=== PATIENT | male | born 1955 | race Two or more races ===

== ENCOUNTER 2025-03-16 00:37 | Inpatient (IN) | payer OTHER, MEDICARE, SELFPAY ==
[2025-03-16] VITALS (31 sets, daily range): BP systolic 138–220; BP diastolic 79–133; PULSE 64–103; RESP 12–97; TEMP 36.2–37; O2SAT 95–100; BMI 24.3
--- NOTE | 2025-03-16 00:45 | PD.EDSOB ---
ED SOB =RME/HPI General Chief Complaint: Shortness of Breath/Dyspnea Stated Complaint: SOB Time Seen by Provider: 03/16/25 00:52 Arrival date/time: 03/16/25 00:37 RME / HPI RME / HPI Narrative: This section includes all my notes and documentations, including HPI, PE, and ED course. Kwaku Swartz MD HPI: 69yo male with ESRD on HD (M/W/F), HTN presents to the ED for a chief complaint of worsening shortness of breath and orthopnea. Patient states he missed his dialysis session yesterday and has since developed shortness of breath that worsens when he lies down. Patient denies any chest pain, nausea, vomiting, dizziness or any other associated symptoms. No other complaints reported. ROS: All negative except as documented in HPI. Physical Exam: General: Alert and oriented. Moderate respiratory distress noted. Hypoxia noted. High BP noted. Eyes: Conjunctivae and lids clear. ENT: No nasal congestion. Neck: Supple. Heart: RRR. Lungs: Moderate respiratory distress. Moderately decreased air movement with bilateral rales. Abdomen: Soft and nontender. Normal bowel sounds. No distension. No rebound or guarding. Back: No CVA tenderness. Skin: Warm and dry. Neuro: Alert and oriented X 3. I reviewed all diagnostic test results. My interpretation of the EKG is sinus rhythm with no acute ST-T wave changes. My interpretation of the chest x-ray is increased vascular congestion. My review of the CT head report is no acute findings. My review of the CT abdomen pelvis report is: 1. Cirrhosis. 2. Small ascites. 3. Sigmoid colon findings are compatible with diverticulitis versus sigmoiditis, underlying neoplasm cannot be excluded. 4. Left renal lesions, suspicious for renal cell carcinomas. My review of the CT angio chest report is: 1. No CT evidence of pulmonary thromboembolism. 2. Dilated left atrium. 3. Bilateral lower lobes consolidations, suspicious for pneumonia. 4. Bilateral pleural effusions. Blood tests show WBC 14.9, Sodium 132, Creatinine 83.7, BUN 52, eGFR 6, Troponin 0.228, BNP > 3280. Bedside COVID and Influenza swabs are negative. At this point, diagnoses include acute respiratory failure with hypoxia, acute CHF, pneumonia, hypertensive urgency. Treatment here included Lasix, topical NTG, morphine, metoprolol, clonidine, Zithromax, and Rocephin. Some improvement noted. I discussed the case with our technical producer. About the presentation and exam and diagnostics and treatments here. And need of further care in the hospital. Recommended admission to hospitalist service for emergent dialysis. I discussed the case with our hospitalist. About the presentation and exam and diagnostics and treatments here. And need of further care in the hospital. Will accept the patient. Kwaku Swartz MD Related Data Home Medications ?Medication ?Instructions ?Recorded ?Confirmed calcitriol 0.25 mcg capsule 0.25 mcg PO TID 06/03/23 12/04/23 ergocalciferol (vitamin D2) 1,250 50,000 unit PO DAILY 06/03/23 12/04/23 mcg (50,000 unit) capsule hydralazine 50 mg tablet 50 mg PO TID 06/03/23 12/04/23 sodium bicarbonate 650 mg tablet 650 mg PO BID 06/03/23 12/04/23 clonidine HCl 0.1 mg tablet 0.1 mg PO BID 06/05/23 12/04/23 valsartan 80 mg tablet 80 mg PO QDAY 10/09/23 12/04/23 Allergies Allergy/AdvReac Type Severity Reaction Status Date / Time No Known Allergies Allergy Verified 03/16/25 00:52 Review of Systems Review of Systems Systems Reviewed: All systems reviewed, normal except as documented Past Medical History Past Medical History NEUROLOGIC: Negative Neurological Disorders, Cerebrovascular Accident, Transient Ischemic Attacks (TIA), Dementia, Alzheimer's Disease, Parkinson's Disease, Brain Tumor, Meningitis, Seizures, Epilepsy, Multiple Sclerosis, Cerebral Palsy, Amyotrophic Lateral Sclerosis (ALS/Kaye Gehrig's), Guillain-Trent Syndrome, Spina Bifida, Paralysis, Peripheral Neuropathy, Joyce's Palsy, Subdural Hematoma, Migraine, Head Trauma, Spinal Cord Injury or Traumatic Brain Injury CARDIAC: Positive Cardiac Disorders and Hypertension; Negative Myocardial Infarction, Cardiac Arrhythmia, Atrial Fibrillation, Angina, Heart Murmur, Coronary Artery Disease, Atherosclerotic Heart Disease, Peripheral Vascular Disease, Hypercholesterolemia, Aneurysm, Congestive Heart Failure, Congenital Heart Disease, Valvular Heart Disease, Rheumatic Fever, Cardiomyopathy, Edema, Pericarditis, Cellulitis, Deep Vein Thrombosis, Hypotension or Varicose Veins RESPIRATORY: Negative Chronic Obstructive Pulmonary Disease (COPD), Asthma, Bronchitis, Emphysema, Pneumonia, Pulmonary Fibrosis, Cystic Fibrosis, Tuberculosis, Pulmonary Embolism, Pulmonary Edema or Sleep Apnea GASTROINTESTINAL: Negative Gastrointestinal Disorders, Hepatitis, Cirrhosis, Pancreatitis, Celiac Disease, Gall Bladder Disease, Gastrointestinal Bleed, Esophageal Varices, Alexis's Esophagus, Colitis, Ulcerative Colitis, Diverticulitis, Diverticulosis, Ulcer, Colorectal Cancer, Irritable Bowel, Crohn's Disease, Obstructive Bowel, Hiatal Hernia, Hemorrhoids, Gastroesophageal Reflux Disease or Obesity GENITOURINARY: Positive Genitourinary Disorders, Renal Disease and Dialysis (MWF); Negative Kidney Stones, Polycystic Kidney Disease, Neurogenic Bladder, Inguinal Hernia, Prostate Cancer or Benign Prostatic Hyperplasia REPRODUCTIVE: Negative Breast Cancer or Testicular Cancer MUSCULOSKELETAL: Negative Musculoskeletal Disorders, Muscular Dystrophy, Myasthenia Gravis, Marfan's Syndrome, Bone Cancer, Arthritis, Rheumatoid Arthritis, Osteoporosis, Degenerative Disk Disease, Gout, Scoliosis, Carpal Tunnel Syndrome, Fibromyalgia, Fractures, Degenerative Joint Disease, Osteomyelitis or Poliovirus ENT: Negative Cataracts, Glaucoma, Blind, Retinal Detachment, Macular Degeneration, Ear Infection, Deafness, Head Trauma or Eye Prosthesis ENDOCRINE: Negative Endocrine Disorders, Diabetes Mellitus Type 1, Diabetes Mellitus Type 2, Hypoglycemia, Vivek's Syndrome, Rains's Disease, Hyperthyroidism, Hypothyroidism, Parathyroid Disease, Pituitary Disease, Systemic Lupus Erythematosus, Syndrome of Inappropriate Antidiuretic Hormone (SIADH), Adrenal Disease or Graves' Disease HEMATOLOGIC: Negative Blood Disorders, Anemia, Leukemia or Sickle Cell Disease PSYCHO/SOCIAL: Negative Psychiatric Problems, Schizophrenia, Recreational Drug Use, Bipolar Disorder, Depression, Anxiety, Behavior Problems, Self-Mutilation, Attention Deficit Disorder, Attention Deficit Hyperactivity Disorder, Depression, Post Traumatic Stress Disorder or Eating Disorder OTHER HISTORY: Positive Hospitalization (cholecystectomy), Chicken Pox and Measles; Negative Autoimmune Disease, Down Syndrome, Autism, Developmental Delay, Shingles, Falls, Blood Transfusions, Blood Transfusion Reaction, Anesthesia Reactions, Organ Transplant, Chemotherapy, Radiation Therapy, Hyperbaric Therapy, MRSA, VRSA, Vancomycin-Resistant Enterococci, Human Immunodeficiency Virus (HIV), Mumps, Rubella (Algerian Measles), Pertussis, Clostridium Difficile, Cancer, Breast Cancer, Colorectal Cancer, Lung Cancer, Prostate Cancer or Testicular Cancer Family History FAMILY HISTORY: Negative Family Psychiatric Problems, Family Respiratory Disorders, Family Cardiac Disorders, Family Gastrointestinal Problems, Family Cancer, Family Surgery or Family Anesthesia Reaction Surgical History SURGICAL: Positive Abdominal Surgery; Negative Cardiac Surgery, Open Heart Surgery, Coronary Artery Bypass Graft, Valve Replacement, Vascular Surgery, Coronary Stent, Cardiac Catheterization, Pacemaker, Angiogram, Auto Implanted Cardiovert Defib, Carotid Endarterectomy, Endocrine Surgery, Thyroidectomy, Ear Surgery, Tympanostomy Tube, Eye Surgery, Nose Surgery, Oral Surgery, Tonsillectomy, Adenoidectomy, Cochlear Implant, Corneal Transplant, Throat Surgery, Tracheostomy, Gastric Bypass Surgery, Gastrostomy, Bowel Surgery, Nephrectomy, Transurethral Resection, Joint Replacement, Amputation, Open Reduction Internal Fixation, Arthroscopy, Neurologic Surgery, Brain Shunt, Vasectomy or Organ Transplant Social History SMOKING STATUS: Former smoker SUBSTANCE USE: does not use ED Exam Narrative Physical exam: As noted in HPI. Course Course Course Narrative: CXR is ordered for determining the etiology of shortness of breath. Quality Measures none Orders Category Date Time Status Bedside COVID-19 Antigen Test NOW Care 03/16/25 00:52 Active Bedside Influenza A&B Antigen Test NOW Care 03/16/25 00:52 Completed COVID-19 Screening Questionnaire NOW Care 03/16/25 05:[address] Screening NOW Care 03/16/25 02:33 Active Decision to Admit X1 Care 03/16/25 05:28 Completed EKG (ED ONLY) *Do not use* NOW Care 03/16/25 00:53 Completed Saline [Insert IV] NOW Care 03/16/25 00:52 Active Consult to Nephrology Stat Cons 03/16/25 05:[address] abdomen pelvis w con Stat Exams 03/16/25 02:[address] angio chest Stat Exams 03/16/25 02:[address] head/brain wo con Stat Exams 03/16/25 02:32 Taken EKG (ED Only) Stat Exams 03/16/25 00:53 Draft XR chest 1V portable Stat Exams 03/16/25 00:53 Taken ABG [Arterial Blood Gas] Stat Lab 03/16/25 01:04 Completed BNP [B-Type Natriuretic Peptide] Stat Lab 03/16/25 01:00 Completed Bilirubin,Direct Stat Lab 03/16/25 01:00 Completed CBC Stat Lab 03/16/25 01:00 Completed CMP [Comprehensive Metabolic Panel] Stat Lab 03/16/25 01:00 Completed D-Dimer Stat Lab 03/16/25 01:00 Completed Magnesium Stat Lab 03/16/25 01:00 Completed Troponin I Stat Lab 03/16/25 01:00 Completed Troponin I Stat Lab 03/16/25 04:50 Completed UA, C/S IF [Urinalysis, C/S if Indicated] Stat Lab 03/16/25 03:47 Completed 1gm x 1 (ED) Med 03/16/25 05:52 Ordered cefTRIAXone/D5w 1gm IV premix [Rocephin/D5w 1gm IV premix] 50 ml IV X1 Azithromycin Inj [Zithromax Inj] 500 mg Med 03/16/25 05:52 Ordered Sodium Chloride 0.9% 250 ml [Ns] 250 ml IV X1 Furosemide Inj [Lasix Inj] Med 03/16/25 00:52 Discontinued 80 mg IVP X1 ONE Metoprolol Tartrate [Lopressor] Med 03/16/25 01:31 Discontinued 50 mg PO X1 ONE Morphine Inj Med 03/16/25 00:52 Discontinued 2 mg IVP X1 ONE Nitroglycerin Oint 2% [Nitro-paste Oint 2%] Med 03/16/25 00:52 Discontinued 2 inch TOP X1 ONE cloNIDine HCL [Catapres] Med 03/16/25 03:58 Discontinued 0.1 mg PO X1 ONE cloNIDine HCL [Catapres] Med 03/16/25 01:31 Discontinued 0.3 mg PO X1 ONE BiPAP / CPAP NOW RT 03/16/25 00:59 Active Vital Signs Vital signs: Vital Signs Respiratory Rate 20 03/16/25 01:00 Blood Pressure 220/133 H 03/16/25 01:00 Pulse Oximetry (%) 100 03/16/25 01:00 Oxygen Delivery Method BiPAP 03/16/25 01:00 Shortness of Breath / Dyspnea MDM Narrative MDM Narrative:: 69yo male with a history of renal disease on HD (M/W/F), HTN presents to the ED for a chief complaint of shortness of breath. Patient states he missed his dialysis session yesterday and has since developed shortness of breath that worsens when he lies down. Patient denies any chest pain, nausea, vomiting, dizziness or any other associated symptoms. No other complaints reported. Patient data External records reviewed:: [facility] previous records (Per chart review, patient was seen here on 05/03/23 for chronic kidney disease.) Clinical information provided by:: patient Social determinants that could affect healthcare access:: none Patient has the following chronic illnesses:: renal disease on HD, HTN How is presenting disease/condition affected by chronic disease/condition?: exacerbated by Evaluation data The following diagnostics were reviewed and interpreted by me:: lab results, radiology exam(s) and EKG tracing(s) (My interpretation of the EKG: NSR (92 bpm) with no ST-T changes. Kwaku Swartz MD) Lab and/or radiology exams considered but not ordered:: none Interpretation Summary: I reviewed all diagnostic test results. My interpretation of the EKG is sinus rhythm with no acute ST-T wave changes. My interpretation of the chest x-ray is increased vascular congestion. My review of the CT head report is no acute findings. My review of the CT abdomen pelvis report is: 1. Cirrhosis. 2. Small ascites. 3. Sigmoid colon findings are compatible with diverticulitis versus sigmoiditis, underlying neoplasm cannot be excluded. 4. Left renal lesions, suspicious for renal cell carcinomas. My review of the CT angio chest report is: 1. No CT evidence of pulmonary thromboembolism. 2. Dilated left atrium. 3. Bilateral lower lobes consolidations, suspicious for pneumonia. 4. Bilateral pleural effusions. Blood tests show WBC 14.9, Sodium 132, Creatinine 83.7, BUN 52, eGFR 6, Troponin 0.228, BNP > 3280. Bedside COVID and Influenza swabs are negative. Medications / Prescriptions Medications or Prescriptions considered but not ordered:: none Medication administrations:: Medication Administration History Discontinued Medications Clonidine (Clonidine Hcl 0.1 Mg Tablet) 0.3 mg PO X1 ONE Stop: 03/16/25 01:32 Last Admin: 03/16/25 03:59 Dose: Not Given Documented By: BD Non-Admin Reason: Change of Condition Clonidine (Clonidine Hcl 0.1 Mg Tablet) 0.1 mg PO X1 ONE Stop: 03/16/25 03:59 Last Admin: 03/16/25 04:43 Dose: 0.1 mg Documented By: BD Furosemide (Furosemide Inj 10 Mg/Ml 4ml Vial) 80 mg IVP X1 ONE Stop: 03/16/25 00:53 Last Admin: 03/16/25 01:35 Dose: 80 mg Documented By: BD Metoprolol Tartrate (Metoprolol Tartrate 25 Mg Tablet) 50 mg PO X1 ONE Stop: 03/16/25 01:32 Last Admin: 03/16/25 02:41 Dose: 50 mg Documented By: BD Morphine Sulfate (Morphine Sulf Inj 10 Mg/Ml Vial) 2 mg IVP X1 ONE Stop: 03/16/25 00:53 Last Admin: 03/16/25 01:34 Dose: 2 mg Documented By: BD Nitroglycerin (Nitroglycerin Oint 2% 1 Inch Packet) 2 inch TOP X1 ONE Stop: 03/16/25 00:53 Last Admin: 03/16/25 01:35 Dose: 2 inch Documented By: BD Treatment here included Lasix, topical NTG, morphine, metoprolol, clonidine, Zithromax, and Rocephin. Consultations Consultation(s) initiated? (list below): Yes Consultation #1 (Physician, Specialty, Details): I discussed the case with our technical producer, Dr. Narvaez. About the presentation and exam and diagnostics and treatments here. And need of further care in the hospital. Recommended admission to hospitalist service for emergent dialysis. Diagnosis Shortness of Breath Differential Diagnosis: acute exacerbation of chronic obstructive airways disease, congestive heart failure, community acquired pneumonia, asthma with exacerbation and pulmonary embolism Most likely diagnosis given after review of the tests above:: Acute respiratory failure, acute CHF needing urgent dialysis, hypertensive urgency, pneumonia. Admission Indicated Admission indicated?: indicated Explain why admission is indicated or not indicated:: Acute respiratory failure, acute CHF needing urgent dialysis, hypertensive urgency, pneumonia. Admission Request Was there a request for admission?: Yes Admission Attestation Admission request attestation: Discussed case with Hospitalist service regarding admission. Discussed patients ED course, exam findings, labs, and radiology results. The Hospitalist [agrees] to accept the patient for admission. Disposition Plan Disposition Plan: Admit Critical Care Time Critical Care Time Critical Care Time: Yes Total Critical Care Time (min.): 45 Attestation: Due to a high probability of clinically significant, life threatening deterioration, the patient required my highest level of preparedness to intervene emergently and I personally spent this critical care time directly and personally managing the patient. This critical care time included obtaining a history; examining the patient; ordering and review of studies; arranging urgent treatment with development of a management plan; evaluation of patient's response to treatment; frequent reassessment; and discussions with family and other providers. It was exclusive of separately billable procedures and treating other patients and teaching time. Kwaku Swartz MD Discharge Plan Plan Patient Disposition: Admit Acute Care w/in Hospital Prescriptions/Referrals Prescriptions/Med Rec: No Action hydralazine 50 mg Tablet 50 mg PO TID sodium bicarbonate 650 mg tablet 650 mg PO BID calcitriol 0.25 mcg capsule 0.25 mcg PO TID ergocalciferol (vitamin D2) 1,250 mcg (50,000 unit) capsule 50,000 unit PO DAILY clonidine HCl 0.1 mg Tablet 0.1 mg PO BID valsartan 80 mg Tablet 80 mg PO QDAY Referrals: Nelson Narvaez MD [Primary Care Provider] - In 1 week Problem List Clinical Impression: Acute respiratory failure with hypoxia, Acute CHF, Hypertensive urgency, Pneumonia Patient/Caregiver Discharge Instructions Print Language: Angolan Stand Alone Forms: [facility] Award Info., Patient Portal Info Letter
--- NOTE | 2025-03-16 00:53 | EKG_ITS ---
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
--- NOTE | 2025-03-16 00:53 | XR_ITS ---
Examination: AP chest single view TECHNIQUE: AP portable upright chest single view Date and time: March 16, 2025 0147 hours Comparison September 25, 2019 INDICATIONS: Shortness of breath today. FINDINGS: [id number] CHF Mild enlargement cardiac contour. Prominent vascular congestion. Perihilar and basilar edema. Mild osteopenia. IMPRESSION: [id number] CHF
[2025-03-16 01:10] LABS: Base Excess -6 (-3-3); HCO3 19 mEq/L (20-26); Inspired Oxygen, FIO2 21 %; O2 Saturation 96 % (91-98); PCO2 37 mmHg (32.0-48.0); PO2 83 mmHg (83-108); pH, Arterial 7.33 (7.35-7.45)
--- NOTE | 2025-03-16 01:10 | PC.NURSE ---
0100 PT presents via private vehicle from home with for c/osob x 2 days. missing dialysis today because of sickness PT GCS15, respiratory acute distress noted, blood drawn from IV placed by nurse PT placed on telemetry monitor, BP cuff and continuous pulse ox.RT called pt put on Bipap fitula on left upper arm limb alert bracelet placed. Pt alert at this time, pt in nad, resp are even and unlabored, skin warm and dry, pt moving all extremities. Bed side introduction and call light instructions given, verbal understanding returned. Call light placed within reach. Will continue to monitor.
[2025-03-16 01:12] LABS: Allen Test Performed/OK; Puncture Site Left Radial
[2025-03-16 01:17] LABS: Basophils # (Auto) 0.1 Thou/mm3 (0.0-0.2); Basophils % (Auto) 1 % (0-2.5); Eosinophils # (Auto) 0.5 Thou/mm3 (0.0-0.5); Eosinophils % (Auto) 3 % (0-10); Hematocrit 36.7 % (41.0-53.0); Hemoglobin 12.6 g/dL (13.5-16.0); Immature Granulocytes % (Auto) 0 % (0-0); Immature Granulocytes Auto 0.05 Thou/mm3 (0.00-0.00); Lymphocytes # (Auto) 4.7 Thou/mm3 (1.0-4.8); Lymphocytes % (Auto) 32 % (10-50); Mean Corpuscular HGB Conc 34.3 g/dl (31.0-37.0); Mean Corpuscular Hemoglobin 31.4 pg (25.0-35.0); Mean Corpuscular Volume 92 fL (80-100); Monocytes # (Auto) 0.8 Thou/mm3 (0.0-0.8); Monocytes % (Auto) 5 % (0-12); Neutrophils # (Auto) 8.8 Thou/mm3 (1.8-7.7); Neutrophils % (Auto) 59 % (37-80); Nucleated Red Blood Cell % 0 /100 WBC (0); Platelet Count 196 Thou/mm3 (140-440); RDW Standard Deviation 47.7 fL (35.1-43.9); Red Blood Count 4.01 Miln/mm3 (4.50-5.90); White Blood Count 14.9 Thou/mm3 (3.8-10.6)
[2025-03-16] MEDS: MORPHINE SULF INJ 10 MG/ML VIAL 2 MG IVP (01:34)
[2025-03-16] MEDS: NITROGLYCERIN OINT 2% 1 INCH PACKET 2 INCH TOP (01:35)
[2025-03-16] MEDS: FUROSEMIDE INJ 10 MG/ML 4ML VIAL 80 MG IVP (01:35)
[2025-03-16 01:59] LABS: Alanine Aminotransferase 64 U/L (10-49); Albumin, Serum 4.6 gm/dL (3.4-4.8); Albumin/Globulin Ratio 1.5 (1.2-2.2); Alkaline Phosphatase 178 U/L (46-116); Anion Gap 15 (7-16); Aspartate Amino Transferase 84 U/L (0-34); B-Type Natriuretic Peptide > 3280 pg/mL (0-100); BUN/Creatinine Ratio 6 Ratio (12-20); Bilirubin,Direct 0.2 mg/dL (0.0-0.3); Bilirubin,Total 0.6 mg/dL (0.3-1.2); Blood Urea Nitrogen 52 mg/dL (9-23); Calcium 9.4 mg/dL (8.3-10.6); Calcium (Corrected) 9.4 mg/dL (8.5-10.1); Carbon Dioxide 20.8 mMol/L (20.0-31.0); Chloride 96 mMol/L (98-107); Creatinine (Component) 8.7 mg/dL (0.6-1.3); Glucose 143 mg/dL (74-106); Magnesium 2.4 mg/dL (1.6-2.6); Osmolality,Calculated 280 (275-295); Potassium 3.8 mMol/L (3.4-5.1); Sodium 132 mMol/L (136-145); Total Protein 7.6 gm/dL (5.7-8.2); eGFR 6 See Note
[2025-03-16 02:04] LABS: Troponin I 0.228 ng/mL (0.0-0.045)
--- NOTE | 2025-03-16 02:32 | XR_ITS ---
Examination: CT brain head without contrast. 2-D sagittal coronal reconstructions Date and time of exam:March 16, 2025 0409 hours High blood pressure with headaches today CTDI: vol (mGy):52.7 DLP: (mGycm):1051 Technique: Multiple CT axial sections of the brain have been obtained, 5 mm slice thickness. Contrast has not been administered. 2-D sagittal, coronal reconstructions have been obtained Low dose protocols were performed. One or more of the following dose reduction techniques were used; automated exposure control, adjustment of the mA and/or KV according to patient size, use of iterative reconstruction technique. Findings: No significant ventricular enlargement. Intra-axial or extra-axial hemorrhage density is not seen. No mass effect or midline shift Basal cisterns are not remarkable. Fourth ventricle is midline. Cranial vault intact. Impression: Negative for acute hemorrhage, mass effect or midline shift
--- NOTE | 2025-03-16 02:33 | XR_ITS ---
Examination: CTA chest with intravenous contrast 2-D reconstructions 3-D reconstructions, vascular Date and time of exam: March 16, 2025 0413 hours INDICATIONS: Central chest pain shortness of breath today CTDI: vol (mGy) 9.29 DLP: (mGycm) 364 Technique: Multiple axial sections of the thorax have been obtained. 3 mm slice thickness, from below the hemidiaphragms to above the apices of the lungs. Mediastinal and lung density settings have been obtained. 2-D sagittal and coronal reconstructions. 3-D angiographic renderings, 3-D volume renderings, 3D post processing, vascular maximum intensity projections obtained. Contrast administered is 60 cc Isovue 370. Low dose protocols were performed. One or more of the following dose reduction techniques were used; automated exposure control, adjustment of the mA and/or KV according to patient size, use of iterative reconstruction technique. Findings: No thoracic aortic aneurysm dilatation or dissection No pulmonary artery filling defects Mild enlargement cardiac contour Mild vascular congestion Mild pneumonia both bases with mild right minimal left pleural fluid IMPRESSION: Negative for pulmonary artery emboli Mild vascular congestion Mild bibasilar pneumonia
--- NOTE | 2025-03-16 02:33 | XR_ITS ---
Examination: CT abdomen with intravenous contrast CT pelvis with intravenous contrast 2-D coronal reconstructions 2-D sagittal reconstructions Date and time of exam:March 16, 2025 0413 hours INDICATIONS: Onset abdominal pain. Today CTDI: vol (mGy) 8.36 DLP: (mGycm) 487 Technique: Multiple axial sections of the abdomen and pelvis have been obtained. 64 slice high-resolution scanner used. 3 mm axial sections have been obtained, post intravenous injection 60 cc Isovue 370 2-D sagittal, coronal reconstructions obtained. Low dose protocols were performed. One or more of the following dose reduction techniques were used; automated exposure control, adjustment of the mA and/or KV according to patient size, use of iterative reconstruction technique. Findings: Cirrhosis, liver nodular in contour with fatty infiltration Absent gallbladder Mild ascites No pancreatic or adrenal mass Atrophic kidneys 60 mm lower pole enhancing left renal mass Lateral left renal mass 12 mm with calcification Abdominal aortic calcification with no aneurysmal dilatation Normal appendix Colonic diverticulosis Mass like area in the sigmoid colon with inflammatory change Transverse posterior dimension 5.2 cm Moderate osteopenia IMPRESSION: Cirrhosis Mild ascites Recommend MRI abdomen pre and post contrast follow-up to assess left renal masses Masslike area in the sigmoid colon with inflammatory change, differential would include acute diverticulitis, underlying malignant neoplasm of the colon
[2025-03-16] MEDS: METOPROLOL TARTRATE 25 MG TABLET 50 MG PO (02:41)
--- NOTE | 2025-03-16 03:20 | PC.NURSE ---
DEBO FRANCIS CALLED PT CREAT 8.7 ADVISED THAT HE WILL NEED DIALYSIS PER DR. ALVARENGA HE WILL GET EMERGENT DIALYSIS
[2025-03-16 03:23] LABS: D-Dimer 668 ng/mL (<600)
--- NOTE | 2025-03-16 03:43 | PC.NURSE ---
CALLED [facility]SE [facility]P TO BRING CLONIDINE FOR PT NON IN PIXIS
[2025-03-16 03:54] LABS: Collection Type, Urine Clean Catch; Squamous Epithelial Cell,Urine 0 /hpf (0-5)
--- NOTE | 2025-03-16 03:59 | PC.NURSE ---
NOTIFIED DR. ALVARENGA B/P 156/99 HR 77 WILL CLONIDINE FROM 0.3MG TO 0.1 MG
[2025-03-16 04:03] LABS: Bilirubin,Urine Negative (Negative); Blood,Urine Trace (Negative); Clarity,Urine Clear (Clear/Hazy); Color,Urine Colorless (Lt Yel-Yel); Culture Indicated,Urine Not Indicated; Glucose, Urine 2+ (Negative); Ketones,Urine Negative (Negative); Leukocyte Esterase,Urine Negative (Negative); Nitrite,Urine Negative (Negative); Protein,Urine 1+ (Neg - Trace); RBC,Urine < 1 /hpf (0-3); Urobilinogen,Urine Negative mg/dL (0.0-1.0); WBC,Urine 3 /hpf (0-5)
--- NOTE | 2025-03-16 04:30 | PC.NURSE ---
PT IN CT
[2025-03-16] MEDS: cloNIDine HCL 0.1 MG TABLET PO (04:43)
[2025-03-16 05:14] LABS: Troponin I 0.227 ng/mL (0.0-0.045)
--- NOTE | 2025-03-16 05:23 | PRELIM_ITS ---
CT scan of the head without intravenous contrast (axial sections with sagittal and coronal reformats). March 16, 2025 at 0409 hours Clinical history: Headache and high blood pressure. Comparison: None available at the time of this report. Findings: There is no evidence of intracranial hemorrhage, mass effect or midline shift. There are periventricular white matter hypodensities, compatible with chronic small vessel ischemia. There is severe volume loss. The calvarium is unremarkable. The mastoid air cells and the visualized paranasal sinuses are clear. Impression: No evidence of intracranial hemorrhage, mass effect or midline shift. Periventricular chronic small vessel ischemia and volume loss. Aspect score 10. Report Electronically Signed By: Dontrell Mendoza 03/16/2025 5:23:32 AM [EST]
--- NOTE | 2025-03-16 05:37 | PRELIM_ITS ---
CT angiogram of the chest with intravenous contrast (axial sections with sagittal and coronal reformats): March 16, 2025 at 0413 hours Clinical History: Shortness of breath. Technique:Helical axial sections with sagittal and coronal reformats of the chest were obtained with intravenous contrast. Iterative reconstruction technique was employed to reduce patient radiation exposure. 3D/MIP reconstructed images were also provided. Comparison: None. Findings: There is no filling defect within the pulmonary artery divisions to suggest pulmonary thromboembolism. The mediastinum demonstrates no evidence of mass or lymphadenopathy. The thoracic aorta is unremarkable. There is no pericardial effusion. There is no pneumothorax. There are small bilateral pleural effusions. There are bilateral lower lobes consolidations. The osseous structures are unremarkable. Please, see separate report for description of the abdominal findings. Dilated left atrium. Impression: 1. No CT evidence of pulmonary thromboembolism. 2. Dilated left atrium. 3. Bilateral lower lobes consolidations, suspicious for pneumonia. 4. Bilateral pleural effusions. Report Electronically Signed By: Dontrell Mendoza 03/16/2025 5:36:49 AM [EST]
--- NOTE | 2025-03-16 05:46 | PRELIM_ITS ---
CT scan of the abdomen and pelvis with intravenous contrast (axial sections with sagittal and coronal reformats): March 16, 2025 at 0413 hours Clinical History: Abdomen pain. Comparison: None available at the time of this report. Findings: Please, see separate report for description of the chest findings. The pancreas, spleen and adrenals are unremarkable. There is status postcholecystectomy. There is no biliary duct dilation. Left renal lesion is seen measuring 2.3 cm. Second left renal lesion is seen measures 2.5 cm. Irregular liver margins are seen. There is trace of ascites. No evidence of bowel obstruction. The appendix is within normal limits. There is no mesenteric or retroperitoneal adenopathy. The urinary bladder is unremarkable. There is no free air. There are degenerative changes of the imaged portions of the spine. There is no acute fractures. There is focal thickening of the sigmoid colon associated with mild peripheral fat stranding. There is diverticulosis of the colon. There is no collections, no perforation. Impression: 1. Cirrhosis. 2. Small ascites. 3. Sigmoid colon findings are compatible with diverticulitis versus sigmoiditis, underlying neoplasm cannot be excluded. 4. Left renal lesions, suspicious for renal cell carcinomas. Report Electronically Signed By: Dontrell Mendoza 03/16/2025 5:46:05 AM [EST]
--- NOTE | 2025-03-16 06:12 | PC.NURSE ---
PER DR. ANTONIETA DAMON TO ORDER ORDER BLOOD CULTURES PRIOR ABX WAS ORDERED
--- NOTE | 2025-03-16 06:15 | PD.RESHP ---
Documentation for date of: 03/16/25 HPI History of Present Illness Chief complaint: SOB History of present illness: Dio Burnett is 69 yr male with PMH of HTN and ESRD on HD M/w/F with Dr. Narvaez. Presenting with chief complaint of shortness of breath since past 2 days. Patient states that the shortness of breath worsened when he was laying down in bed, did not need to use any pillows, would resolve sometime later. Denies any shortness of breath with any physical activity. Denies any chest pain, lower extremity swelling, endorses normal daily activity. He missed hemodialysis session this past Saturday due to feeling sick with a runny nose and some lethargy. States that he started dialysis about 2 years ago and has it through AV fistula on left arm. Patient also denies any fever, cough, chest pain. In the ED, BP 220/133, HR 103, RR 20, patient started on BiPAP after ABG showed mild respiratory acidosis with pH 7.33 and CO2 37. CBC significant for leukocytosis 15, stable hemoglobin, electrolytes within normal limits. Kidney function and consistency with ESRD BUN 52, creatinine 8.7. Transaminitis with AST 84, ALT 64, ALP 178. Troponins mildly elevated 0.288 and down trended to 0.227. BNP greater than 3280. CT head negative, CTA negative for PE, possible pneumonia. CT A/P showed left renal lesions. He was given Clonidine 0.1 mg p.o., metoprolol tartrate 50 mg p.o., furosemide 80 mg IV, nitro patch, 2 mg IV morphine while in the ED. Nephrology Dr Narvaez was consulted and stated to admit patient for continuing hemodialysis. AHRF 2/2 volume overload, hypertensive emergency, and sepsis secondary to pneumonia. 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 Used to smoke 2 packs of cigarettes a week and recently quit 2 weeks ago. Has a smoking history of 40+ years. Denies any alcohol use, denies any drug use. Meds: Med rec pending Allergies: NKDA Review of Systems Review of Systems Systems Reviewed: All systems reviewed, normal except as documented Exam Vital Signs Temp Pulse Resp BP Pulse Ox O2 Del Method FiO2 98.6 F 68 15 152/97 H 98 BiPAP 03/16/25 06:00 03/16/25 06:00 03/16/25 06:00 03/16/25 06:00 03/16/25 06:00 03/16/25 06:00 03/16/25 06:00 Narrative Exam General: Middle age appearing male, on Bipap, No acute distress, cooperative HEENT: NCAT, No JVD noted. Pupils are equal and reactive to light bilaterally Cardiovascular: Normal S1 and S2. Regular rate and rhythm. Respiratory: Poor air movement on auscultation Abdomen: Soft, mild epigastric tenderness, not distended, normal bowel sounds. Skin: Warm to touch, dry, no rashes noted Musculoskeletal: No gross injuries. Able to move all 4 extremities. No pitting edema Neuro: Alert and oriented x3. No focal neuro deficits. Psych: Normal affect and mood Results: Labs 03/17/25 04:40 03/17/25 04:40 Labs: Short CBC 03/16/25 Range/Units 01:00 WBC 14.9 H (3.8-10.6) Thou/mm3 Hgb 12.6 L (13.5-16.0) g/dL Hct 36.7 L (41.0-53.0) % Plt Count 196 (140-440) Thou/mm3 BMP 03/16/25 01:00 Sodium 132 L Potassium 3.8 Chloride 96 L Carbon Dioxide 20.8 BUN 52 H Creatinine 8.7 H* Glucose 143 H Calcium 9.4 Cardiac Enzymes 03/16/25 03/16/25 Range/Units 01:00 04:50 Troponin I 0.228 H* 0.227 H* (0.0-0.045) ng/mL Liver Function 03/16/25 Range/Units 01:00 Total Bilirubin 0.6 (0.3-1.2) mg/dL Direct Bilirubin 0.2 (0.0-0.3) mg/dL AST 84 H (0-34) U/L ALT 64 H (10-49) U/L Alkaline Phosphatase 178 H (46-116) U/L Albumin 4.6 (3.4-4.8) gm/dL Urine 03/16/25 Range/Units 03:47 Urine Color Colorless A (Lt Yel-Yel) Urine Clarity Clear (Clear/Hazy) Urine pH 8.0 H (5.0-7.0) Ur Specific [place] 1.010 (1.001-1.035) Urine Protein 1+ A (Neg - Trace) Urine Glucose (UA) 2+ A (Negative) ABG Interpretation ABG results: 03/16/25 01:04 ABG pH 7.33 L ABG pCO2 37 ABG pO2 83 ABG HCO3 19 L ABG O2 Saturation 96 ABG Base Excess -6 L Quality Measures Quality Measures none Advance care planning discussed with:: patient Medications Home Medications and Allergies Home Medications ?Medication ?Instructions ?Recorded ?Confirmed ?Type calcitriol 0.25 mcg capsule 0.25 mcg PO TID 06/03/23 12/04/23 History ergocalciferol (vitamin D2) 1,250 50,000 unit PO DAILY 06/03/23 03/16/25 History mcg (50,000 unit) capsule hydralazine 50 mg tablet 50 mg PO TID 06/03/23 12/04/23 History sodium bicarbonate 650 mg tablet 650 mg PO BID 06/03/23 03/16/25 History clonidine HCl 0.1 mg tablet 0.1 mg PO BID 06/05/23 03/16/25 History valsartan 80 mg tablet 80 mg PO QDAY 10/09/23 12/04/23 History calcium acetate(phosphat bind) 667 667 mg PO TID 03/16/25 03/16/25 History mg capsule cinacalcet 30 mg tablet 30 mg PO TID 03/16/25 03/16/25 History Allergies Allergy/AdvReac Type Severity Reaction Status Date / Time No Known Allergies Allergy Verified 03/16/25 00:52 Visit Medications Heparin Sodium (Porcine) (Heparin Sod Inj 5000 Unit/Ml Vial) 5,000 unit SC Q8HR JEYSON Stop: 03/30/25 06:14 Azithromycin 500 mg/ Sodium (Chloride) 250 mls @ 250 mls/hr IV X1 ONE Stop: 03/16/25 06:51 Ceftriaxone Sodium/Dextrose (Rocephin/D5w 1gm Iv Premix) 1 gm in 50 mls @ 100 mls/hr IV X1 ONE Stop: 03/16/25 06:21 Ondansetron HCl (Ondansetron Inj 2 Mg/Ml Inj 2 Ml) 4 mg IVP Q6H PRN; Protocol PRN Reason: NAUSEA OR VOMITING Stop: 04/15/25 06:09 Sennosides (Senna Tablet) 1 tab PO QDAY PRN; Protocol PRN Reason: constipation Stop: 04/15/25 06:09 Discontinued Medications Clonidine (Clonidine Hcl 0.1 Mg Tablet) 0.3 mg PO X1 ONE Stop: 03/16/25 01:32 Last Admin: 03/16/25 03:59 Dose: Not Given Clonidine (Clonidine Hcl 0.1 Mg Tablet) 0.1 mg PO X1 ONE Stop: 03/16/25 03:59 Last Admin: 03/16/25 04:43 Dose: 0.1 mg Furosemide (Furosemide Inj 10 Mg/Ml 4ml Vial) 80 mg IVP X1 ONE Stop: 03/16/25 00:53 Last Admin: 03/16/25 01:35 Dose: 80 mg Metoprolol Tartrate (Metoprolol Tartrate 25 Mg Tablet) 50 mg PO X1 ONE Stop: 03/16/25 01:32 Last Admin: 03/16/25 02:41 Dose: 50 mg Morphine Sulfate (Morphine Sulf Inj 10 Mg/Ml Vial) 2 mg IVP X1 ONE Stop: 03/16/25 00:53 Last Admin: 03/16/25 01:34 Dose: 2 mg Nitroglycerin (Nitroglycerin Oint 2% 1 Inch Packet) 2 inch TOP X1 ONE Stop: 03/16/25 00:53 Last Admin: 03/16/25 01:35 Dose: 2 inch Assessment & Plan Plan Dio Burnett is 69 yr male with PMH of HTN and ESRD on HD M//F with Dr. Narvaez. Presenting with chief complaint of shortness of breath since past 2 days. Patient states that the shortness of breath worsened when he was laying down in bed, did not need to use any pillows, would resolve sometime later. Nephrology Dr Narvaez was consulted and stated to admit patient for continuing hemodialysis. AHRF 2/2 volume overload, hypertensive emergency, and sepsis secondary to pneumonia. #AHRF 2/2 volume overload #Mild respiratory acidosis Patient is on hemodialysis Saturday with Saturday session most recently missed. Stated that he was feeling unwell. Started complaining of shortness of breath worse laying down. ABG showed mild respiratory acidosis with pH 7.33 and CO2 37, elevated BNP. -continue BiPAP -repeat ABG pending -continue HD inpatient #Sepsis 2/2 CAP #Transaminitis Meets SIRS 2/4. Sepsis due to PNA with acute sepsis-related organ dysfunction as evidence by transaminitis. CXR appears to show some congestion. CURB 65--2 points PSI--107 points, Class IV -IV ceftriaxone 1g daily -IV azithromycin 500mg daily -sputum cultures pending -blood cultures pending #Hypertensive emergency #Hx HTN BP 220/133 on admission, patient has history of hypertension, med rec pending. Endorgan damage as evidenced by transaminitis. Patient was given Clonidine 0.1 mg p.o., metoprolol tartrate 50 mg p.o., furosemide 80 mg IV, nitro patch in ED. - Monitor BP ? Resume medications after med rec ? Slowly decrease blood pressure over next 24 hours #ESRD on HD M/W/F Med rec pending. Follows Dr. Narvaez. Missed Saturday session. BUN 52, creatinine 8.7 on admiision. -Nephrology Dr. Narvaez consulted, appreciate recs -renally dose medications Health maintenance: [facility] FEN: renal diet DVT prophylaxis: Subcu heparin CODE STATUS: Full code The patient's management plan was discussed with my attending physician Dr. Cobb. Adamaris De La Fuente, PGY-1 Attending Provider Attestation/Addendum Patient was seen and examined in the ER. He is hypertensive with fluid overload. He ia a hemodialysis patient. He will need urgent HD. Discussed with housestaff.
--- NOTE | 2025-03-16 06:23 | PC.NURSE ---
PT HAS HEPARIN ORDERED NO PTT DONE WILL HOLD TIL PTT COMPLETE
--- NOTE | 2025-03-16 06:49 | PC.NURSE ---
PT LEFT TO DIALYSIS APPROX 3 1/2 HOURS
--- NOTE | 2025-03-16 08:34 | PD.RESPRO ---
Documentation for date of: 03/16/25 Subjective Subjective Interval history: Patient was seen and examined at Dialysis unit this AM. No acute exents overnight. Patient tolerating diet, adequate urine output and mentation is at baseline. Patient endorses improvement of SOB and cough. Nephrology, Dr. Narvaez following and recommends dialysis today and tomorrow. Exam Vital Signs Temp Pulse Resp BP Pulse Ox O2 Del Method O2 Flow Rate 98.6 F 75 15 162/94 H 97 BiPAP 3 03/16/25 06:51 03/16/25 08:30 03/16/25 06:51 03/16/25 08:30 03/16/25 06:51 03/16/25 06:00 03/16/25 06:51 FiO2 25 03/16/25 06:25 Narrative Exam General: Middle age appearing male, on Bipap, No acute distress, cooperative HEENT: NCAT, No JVD noted. Pupils are equal and reactive to light bilaterally Cardiovascular: Normal S1 and S2. Regular rate and rhythm. Respiratory: Poor air movement on auscultation Abdomen: Soft, mild epigastric tenderness, not distended, normal bowel sounds. Skin: Warm to touch, dry, no rashes noted Musculoskeletal: No gross injuries. Able to move all 4 extremities. No pitting edema Neuro: Alert and oriented x3. No focal neuro deficits. Psych: Normal affect and mood Objective Labs 03/17/25 04:40 03/17/25 04:40 Labs: Laboratory Results - last 24 hr 03/16/25 03/16/25 03/16/25 01:00 01:04 03:47 WBC 14.9 H RBC 4.01 L Hgb 12.6 L Hct 36.7 L MCV 92 MCH 31.4 MCHC 34.3 RDW Std Deviation 47.7 H Plt Count 196 Neut % (Auto) 59 Lymph % (Auto) 32 [place] % (Auto) 5 Eos % (Auto) 3 Baso % (Auto) 1 Neut # (Auto) 8.8 H Lymph # (Auto) 4.7 [place] # (Auto) 0.8 Eos # (Auto) 0.5 Baso # (Auto) 0.1 Immature Gran # (Auto) 0.05 H Absolute Nucleated RBC 0.00 Immature Gran % 0 Nucleated RBC % 0 D-Dimer 668 H Puncture Site Left Radial ABG pH 7.33 L ABG pCO2 37 ABG pO2 83 ABG HCO3 19 L ABG O2 Saturation 96 ABG Base Excess -6 L FiO2 21 Sodium 132 L Potassium 3.8 Chloride 96 L Carbon Dioxide 20.8 Anion Gap 15 BUN 52 H Creatinine 8.7 H* Estim Creat Clear Calc 8.0 L eGFR 6 L* BUN/Creatinine Ratio 6 L Glucose 143 H Calculated Osmolality 280 Calcium 9.4 Corrected Calcium 9.4 Magnesium 2.4 Total Bilirubin 0.6 Direct Bilirubin 0.2 AST 84 H ALT 64 H Alkaline Phosphatase 178 H Troponin I 0.228 H* B-Natriuretic Peptide > 3280 H* Total Protein 7.6 Albumin 4.6 Globulin 3.0 Albumin/Globulin Ratio 1.5 Ur Collection Type Clean Catch Urine Color Colorless A Urine Clarity Clear Urine pH 8.0 H Ur Specific [place] 1.010 Urine Protein 1+ A Urine Glucose (UA) 2+ A Urine Ketones Negative Urine Blood Trace Urine Nitrite Negative Urine Bilirubin Negative Urine Urobilinogen (Auto) Negative Ur Leukocyte Esterase Negative Urine RBC < 1 Urine WBC 3 Ur Squamous Epith Cells 0 Urine Bacteria None Ur Culture Indicated? Not Indicated 03/16/25 04:50 WBC RBC Hgb Hct MCV MCH MCHC RDW Std Deviation Plt Count Neut % (Auto) Lymph % (Auto) [place] % (Auto) Eos % (Auto) Baso % (Auto) Neut # (Auto) Lymph # (Auto) [place] # (Auto) Eos # (Auto) Baso # (Auto) Immature Gran # (Auto) Absolute Nucleated RBC Immature Gran % Nucleated RBC % D-Dimer Puncture Site ABG pH ABG pCO2 ABG pO2 ABG HCO3 ABG O2 Saturation ABG Base Excess FiO2 Sodium Potassium Chloride Carbon Dioxide Anion Gap BUN Creatinine Estim Creat Clear Calc eGFR BUN/Creatinine Ratio Glucose Calculated Osmolality Calcium Corrected Calcium Magnesium Total Bilirubin Direct Bilirubin AST ALT Alkaline Phosphatase Troponin I 0.227 H* B-Natriuretic Peptide Total Protein Albumin Globulin Albumin/Globulin Ratio Ur Collection Type Urine Color Urine Clarity Urine pH Ur Specific [place] Urine Protein Urine Glucose (UA) Urine Ketones Urine Blood Urine Nitrite Urine Bilirubin Urine Urobilinogen (Auto) Ur Leukocyte Esterase Urine RBC Urine WBC Ur Squamous Epith Cells Urine Bacteria Ur Culture Indicated? ABG Interpretation ABG results: 03/16/25 01:04 ABG pH 7.33 L ABG pCO2 37 ABG pO2 83 ABG HCO3 19 L ABG O2 Saturation 96 ABG Base Excess -6 L Quality Measures Quality Measures none Advance care planning discussed with:: patient Assessment & Plan Assessment Current Active Medications: Generic Name Dose Route Start Last Admin Trade Name Freq PRN Reason Stop Dose Admin Heparin Sodium (Porcine) 5,000 unit 03/16/25 06:15 Heparin Sod Inj 5000 Unit/Ml Vial SC 03/30/25 06:14 Q8HR JEYSON Azithromycin 500 mg/ Sodium 250 mls @ 250 mls/hr 03/17/25 09:00 Chloride IV 03/24/25 08:59 QDAY JEYSON Ceftriaxone Sodium/Dextrose 1 gm in 50 mls @ 100 mls/hr 03/16/25 06:34 Rocephin/D5w 1gm Iv Premix IV 03/23/25 06:33 QDAY JEYSON Ondansetron HCl 4 mg 03/16/25 06:10 Ondansetron Inj 2 Mg/Ml Inj 2 Ml IVP 04/15/25 06:09 Q6H PRN NAUSEA OR VOMITING Protocol Sennosides 1 tab 03/16/25 06:10 Senna Tablet PO 04/15/25 06:09 QDAY PRN constipation Protocol Plan Dio Burnett is 69 yr male with PMH of HTN and ESRD on HD M// with Dr. Narvaez. Presenting with chief complaint of shortness of breath since past 2 days. Patient states that the shortness of breath worsened when he was laying down in bed, did not need to use any pillows, would resolve sometime later. Nephrology Dr Narvaez was consulted and stated to admit patient for continuing hemodialysis. AHRF 2/2 volume overload, hypertensive emergency, and sepsis secondary to pneumonia. #AHRF 2/2 volume overload - resolving #Mild respiratory acidosis Patient is on hemodialysis Saturday with Saturday session most recently missed. Stated that he was feeling unwell. Started complaining of shortness of breath worse laying down. ABG showed mild respiratory acidosis with pH 7.33 and CO2 37, Plan: - Wean O2 as tolerated - Continue Ceftriaxone 1G IV daily - Continue Azitromycin 500mg IV daily - Pending sputum and blood cultures #Possible community acquired Pneumonia #Transaminitis #Sepsis Ruled out Meets SIRS 2/4. Sepsis due to PNA with acute sepsis-related organ dysfunction as evidence by transaminitis. CXR appears to show some congestion. CURB 65--2 points PSI--107 points, Class IV Patient came in and found to have 2 or more SIRS criteria and was evaluated for sepsis. However, based upon further work-up, sepsis was ruled out. -IV ceftriaxone 1g daily -IV azithromycin 500mg daily -sputum cultures pending -blood cultures pending #Hypertensive emergency - resolved #Hx HTN BP 220/133 on admission, patient has history of hypertension, med rec pending. Endorgan damage as evidenced by transaminitis. Patient was given Clonidine 0.1 mg p.o., metoprolol tartrate 50 mg p.o., furosemide 80 mg IV, nitro patch in ED. - Monitor BP ? Resume medications after med rec ? Slowly decrease blood pressure over next 24 hours #ESRD on HD M/W/F Med rec pending. Follows Dr. Narvaez. Missed Saturday session. BUN 52, creatinine 8.7 on admiision. Hemodialysis today and tomorrow as per Nephrology recommendations Health maintenance: Dispo: tele, AHRF, ESRD needing HD FEN: renal diet DVT prophylaxis: Subcu heparin CODE STATUS: Full code Plan of care discussed with Attending Dr. Foreign Lopes MD PGY 1 Disclaimer: This note was dictated by speech recognition. Minor errors in cardiac tech may be present due to voice recognition software. Attending Provider Attestation/Addendum I reviewed labs, imaging, EKG, home medications and prior available records. Face to face evaluation was performed by me. I have personally examined the patient and discussed assessment and plan with the IM team. I reviewed the resident note and agree with the plan with exceptions as below. Acute hypoxic respiratory failure Bilateral pneumonia, sepsis ruled out ESRD on hemodialysis Leukocytosis Elevated troponin, peaked Arranged for urgent dialysis on the morning of 03/16 Nephrology was consulted Continue ceftriaxone/azithromycin Counseled the patient regarding the importance of compliance with dialysis sessions
[2025-03-16 08:40] LABS: Hepatitis A Antibody IgM Non Reactive (Non React); Hepatitis B Core Antibody IgM Non Reactive (Non React); Hepatitis B Surface Ab NonReact(Not Immune) (Immune); Hepatitis B Surface Antigen Non Reactive (Non React); Hepatitis C Antibody Non Reactive (Non React)
--- NOTE | 2025-03-16 09:35 | PD.RESPRO ---
Documentation for date of: 03/16/25 Exam Vital Signs Temp Pulse Resp BP Pulse Ox O2 Del Method O2 Flow Rate 98.6 F 66 15 139/93 H 97 BiPAP 3 03/16/25 06:51 03/16/25 09:30 03/16/25 06:51 03/16/25 09:30 03/16/25 06:51 03/16/25 06:00 03/16/25 06:51 FiO2 25 03/16/25 06:25 Objective Labs 03/16/25 01:00 03/16/25 01:00 Labs: Laboratory Results - last 24 hr 03/16/25 03/16/25 03/16/25 01:00 01:04 03:47 WBC 14.9 H RBC 4.01 L Hgb 12.6 L Hct 36.7 L MCV 92 MCH 31.4 MCHC 34.3 RDW Std Deviation 47.7 H Plt Count 196 Neut % (Auto) 59 Lymph % (Auto) 32 [place] % (Auto) 5 Eos % (Auto) 3 Baso % (Auto) 1 Neut # (Auto) 8.8 H Lymph # (Auto) 4.7 [place] # (Auto) 0.8 Eos # (Auto) 0.5 Baso # (Auto) 0.1 Immature Gran # (Auto) 0.05 H Absolute Nucleated RBC 0.00 Immature Gran % 0 Nucleated RBC % 0 APTT D-Dimer 668 H Puncture Site Left Radial ABG pH 7.33 L ABG pCO2 37 ABG pO2 83 ABG HCO3 19 L ABG O2 Saturation 96 ABG Base Excess -6 L FiO2 21 Sodium 132 L Potassium 3.8 Chloride 96 L Carbon Dioxide 20.8 Anion Gap 15 BUN 52 H Creatinine 8.7 H* Estim Creat Clear Calc 8.0 L eGFR 6 L* BUN/Creatinine Ratio 6 L Glucose 143 H Calculated Osmolality 280 Calcium 9.4 Corrected Calcium 9.4 Magnesium 2.4 Total Bilirubin 0.6 Direct Bilirubin 0.2 AST 84 H ALT 64 H Alkaline Phosphatase 178 H Troponin I 0.228 H* B-Natriuretic Peptide > 3280 H* Total Protein 7.6 Albumin 4.6 Globulin 3.0 Albumin/Globulin Ratio 1.5 Ur Collection Type Clean Catch Urine Color Colorless A Urine Clarity Clear Urine pH 8.0 H Ur Specific [place] 1.010 Urine Protein 1+ A Urine Glucose (UA) 2+ A Urine Ketones Negative Urine Blood Trace Urine Nitrite Negative Urine Bilirubin Negative Urine Urobilinogen (Auto) Negative Ur Leukocyte Esterase Negative Urine RBC < 1 Urine WBC 3 Ur Squamous Epith Cells 0 Urine Bacteria None Ur Culture Indicated? Not Indicated Hepatitis A IgM Ab Hep Bs Antigen Hep Bs Antibody Hep B Core IgM Ab Hepatitis C Antibody 03/16/25 03/16/25 04:50 07:25 WBC RBC Hgb Hct MCV MCH MCHC RDW Std Deviation Plt Count Neut % (Auto) Lymph % (Auto) [place] % (Auto) Eos % (Auto) Baso % (Auto) Neut # (Auto) Lymph # (Auto) [place] # (Auto) Eos # (Auto) Baso # (Auto) Immature Gran # (Auto) Absolute Nucleated RBC Immature Gran % Nucleated RBC % APTT 31.0 D-Dimer Puncture Site ABG pH ABG pCO2 ABG pO2 ABG HCO3 ABG O2 Saturation ABG Base Excess FiO2 Sodium Potassium Chloride Carbon Dioxide Anion Gap BUN Creatinine Estim Creat Clear Calc eGFR BUN/Creatinine Ratio Glucose Calculated Osmolality Calcium Corrected Calcium Magnesium Total Bilirubin Direct Bilirubin AST ALT Alkaline Phosphatase Troponin I 0.227 H* B-Natriuretic Peptide Total Protein Albumin Globulin Albumin/Globulin Ratio Ur Collection Type Urine Color Urine Clarity Urine pH Ur Specific [place] Urine Protein Urine Glucose (UA) Urine Ketones Urine Blood Urine Nitrite Urine Bilirubin Urine Urobilinogen (Auto) Ur Leukocyte Esterase Urine RBC Urine WBC Ur Squamous Epith Cells Urine Bacteria Ur Culture Indicated? Hepatitis A IgM Ab Non Reactive Hep Bs Antigen Non Reactive Hep Bs Antibody NonReact(Not Immune) L Hep B Core IgM Ab Non Reactive Hepatitis C Antibody Non Reactive ABG Interpretation ABG results: 03/16/25 01:04 ABG pH 7.33 L ABG pCO2 37 ABG pO2 83 ABG HCO3 19 L ABG O2 Saturation 96 ABG Base Excess -6 L Quality Measures Quality Measures none Assessment & Plan Assessment Current Active Medications: Generic Name Dose Route Start Last Admin Trade Name Freq PRN Reason Stop Dose Admin Heparin Sodium (Porcine) 5,000 unit 03/16/25 06:15 Heparin Sod Inj 5000 Unit/Ml Vial SC 03/30/25 06:14 Q8HR JEYSON Azithromycin 500 mg/ Sodium 250 mls @ 250 mls/hr 03/17/25 09:00 Chloride IV 03/24/25 08:59 QDAY JEYSON Ceftriaxone Sodium/Dextrose 1 gm in 50 mls @ 100 mls/hr 03/16/25 06:34 Rocephin/D5w 1gm Iv Premix IV 03/23/25 06:33 QDAY JEYSON Ondansetron HCl 4 mg 03/16/25 06:10 Ondansetron Inj 2 Mg/Ml Inj 2 Ml IVP 04/15/25 06:09 Q6H PRN NAUSEA OR VOMITING Protocol Sennosides 1 tab 03/16/25 06:10 Senna Tablet PO 04/15/25 06:09 QDAY PRN constipation Protocol
[2025-03-16 12:25] LABS: Allen Test Not Performed; Base Excess 5 (-3-3); HCO3 28 mEq/L (20-26); Inspired O2, VO2 Liters 2 L/min; O2 Saturation 97 % (91-98); PCO2 37 mmHg (32.0-48.0); PO2 89 mmHg (83-108); Puncture Site Right Radial
--- NOTE | 2025-03-16 13:40 | PD.RESCONSUL ---
HPI Data of Consult Consult date: 03/16/25 Requesting Physician: Lacho Cobb MD Admitting Provider: Lacho Cobb MD Attending Provider: Lacho Cobb MD Primary Care Provider: Nelson Narvaez MD Consult Narrative Reason for consult: ESRD on dialysis History of present illness: Dio Burnett is 69 yr male with PMH of HTN and ESRD on HD M/W/F with Dr. Narvaez. Presenting with chief complaint of shortness of breath since past 2 days. Patient states that the shortness of breath worsened when he was laying down in bed, did not need to use any pillows, would resolve sometime later. Denies any shortness of breath with any physical activity. Denies any chest pain, lower extremity swelling, endorses normal daily activity. He missed hemodialysis session this past Saturday due to feeling sick with a runny nose and some lethargy. States that he started dialysis about 2 years ago and has it through AV fistula on left arm. Patient also denies any fever, cough, chest pain. ED COURSE: In the ED, BP 220/133, HR 103, RR 20, patient started on BiPAP after ABG showed mild respiratory acidosis with pH 7.33 and CO2 37. CBC significant for leukocytosis 15, stable hemoglobin, electrolytes within normal limits. Kidney function and consistency with ESRD BUN 52, creatinine 8.7. Transaminitis with AST 84, ALT 64, ALP 178. Troponins mildly elevated 0.288 and down trended to 0.227. BNP greater than 3280. CT head negative, CTA negative for PE, possible pneumonia. CT A/P showed left renal lesions. He was given Clonidine 0.1 mg p.o., metoprolol tartrate 50 mg p.o., furosemide 80 mg IV, nitro patch, 2 mg IV morphine while in the ED. Nephrology was consulted for management of dialysis. Patient seen and examined during dialysis. Patient was only part way through, had approximately 1 L fluid removed, but or showed significant symptomatic improvement. Was previously on BiPAP, at time of exam was on 2 L of O2, saturating well and breathing comfortably. At that time patient denied fevers, chills, chest pain, shortness of breath, nausea, vomiting. Patient still notably edematous with significant crackles on exam, goal for hemodialysis is 3.5 L fluid removal. Patient will likely build to resume usual hemodialysis schedule starting tomorrow. WBC 14.9, hemoglobin 12.6, sodium 132, potassium 3.8, bicarb 20.8, BUN 52, creatinine 0.7, EGFR 6. BNP greater than 3200. cc:: cc: Lacho Cobb MD Review of Systems Review of Systems Systems Reviewed: All systems reviewed, normal except as documented Exam Vital Signs Temp Pulse Resp BP Pulse Ox O2 Del Method O2 Flow Rate 97.4 F 71 17 150/90 H 99 Room Air 2 03/16/25 12:00 03/16/25 12:00 03/16/25 12:00 03/16/25 12:00 03/16/25 12:00 03/16/25 12:00 03/16/25 10:06 FiO2 03/16/25 06:25 Narrative Exam PE: Gen: Well-developed and well-nourished. HEENT: NCAT, PERRLA, EOMI, MMM, anicteric conjunctivae. CVS: normal S1 and S2. RRR. No M/R/G. Resp: Bibasilar crackles. Abd: soft, non-tender, non-distended. BS+ in all 4 quadrants. MSK: Good ROM in BUE & BLE. No rash. 3+ pitting edema BLE. Neuro: CN II-XII grossly intact. Strength 5/5 in BUE & BLE. Alert and oriented x3. Psych: appropriate mood and affect. Results Labs 03/17/25 04:40 03/16/25 01:00 Labs: Short CBC 03/16/25 Range/Units 01:00 WBC 14.9 H (3.8-10.6) Thou/mm3 Hgb 12.6 L (13.5-16.0) g/dL Hct 36.7 L (41.0-53.0) % Plt Count 196 (140-440) Thou/mm3 BMP 03/16/25 01:00 Sodium 132 L Potassium 3.8 Chloride 96 L Carbon Dioxide 20.8 BUN 52 H Creatinine 8.7 H* Glucose 143 H Calcium 9.4 Cardiac Enzymes 03/16/25 03/16/25 Range/Units 01:00 04:50 Troponin I 0.228 H* 0.227 H* (0.0-0.045) ng/mL Liver Function 03/16/25 Range/Units 01:00 Total Bilirubin 0.6 (0.3-1.2) mg/dL Direct Bilirubin 0.2 (0.0-0.3) mg/dL AST 84 H (0-34) U/L ALT 64 H (10-49) U/L Alkaline Phosphatase 178 H (46-116) U/L Albumin 4.6 (3.4-4.8) gm/dL Urine 03/16/25 Range/Units 03:47 Urine Color Colorless A (Lt Yel-Yel) Urine Clarity Clear (Clear/Hazy) Urine pH 8.0 H (5.0-7.0) Ur Specific [place] 1.010 (1.001-1.035) Urine Protein 1+ A (Neg - Trace) Urine Glucose (UA) 2+ A (Negative) ABG Interpretation ABG results: 03/16/25 03/16/25 01:04 12:10 ABG pH 7.33 L 7.50 H D ABG pCO2 37 37 ABG pO2 83 89 ABG HCO3 19 L 28 H ABG O2 Saturation 96 97 ABG Base Excess -6 L 5 H Quality Measures Quality Measures VTE prophylaxis Advance care planning discussed with:: patient Medications Home Medications and Allergies Home Medications ?Medication ?Instructions ?Recorded ?Confirmed ?Type calcitriol 0.25 mcg capsule 0.25 mcg PO TID 06/03/23 12/04/23 History ergocalciferol (vitamin D2) 1,250 50,000 unit PO DAILY 06/03/23 03/16/25 History mcg (50,000 unit) capsule hydralazine 50 mg tablet 50 mg PO TID 06/03/23 12/04/23 History sodium bicarbonate 650 mg tablet 650 mg PO BID 06/03/23 03/16/25 History clonidine HCl 0.1 mg tablet 0.1 mg PO BID 06/05/23 03/16/25 History valsartan 80 mg tablet 80 mg PO QDAY 10/09/23 12/04/23 History calcium acetate(phosphat bind) 667 667 mg PO TID 03/16/25 03/16/25 History mg capsule cinacalcet 30 mg tablet 30 mg PO TID 03/16/25 03/16/25 History Allergies Allergy/AdvReac Type Severity Reaction Status Date / Time No Known Allergies Allergy Verified 03/16/25 00:52 Visit Medications Heparin Sodium (Porcine) (Heparin Sod Inj 5000 Unit/Ml Vial) 5,[address] [facility] Stop: 03/30/25 06:14 Azithromycin 500 mg/ Sodium (Chloride) 250 mls @ 250 mls/hr IV QDAY [facility] Stop: 03/24/25 08:59 Ceftriaxone Sodium/Dextrose (Rocephin/D5w 1gm Iv Premix) 1 gm in 50 mls @ 100 mls/hr IV QDAY [facility] Stop: 03/23/25 06:33 Ondansetron HCl (Ondansetron Inj 2 Mg/Ml Inj 2 Ml) 4 mg IVP Q6H PRN; Protocol PRN Reason: NAUSEA OR VOMITING Stop: 04/15/25 06:09 Sennosides (Senna Tablet) 1 tab PO QDAY PRN; Protocol PRN Reason: constipation Stop: 04/15/25 06:09 Discontinued Medications Clonidine (Clonidine Hcl 0.1 Mg Tablet) 0.3 mg PO X1 ONE Stop: 03/16/25 01:32 Last Admin: 03/16/25 03:59 Dose: Not Given Clonidine (Clonidine Hcl 0.1 Mg Tablet) 0.1 mg PO X1 ONE Stop: 03/16/25 03:59 Last Admin: 03/16/25 04:43 Dose: 0.1 mg Furosemide (Furosemide Inj 10 Mg/Ml 4ml Vial) 80 mg IVP X1 ONE Stop: 03/16/25 00:53 Last Admin: 03/16/25 01:35 Dose: 80 mg Azithromycin 500 mg/ Sodium (Chloride) 250 mls @ 250 mls/hr IV X1 ONE Stop: 03/16/25 06:51 Ceftriaxone Sodium/Dextrose (Rocephin/D5w 1gm Iv Premix) 1 gm in 50 mls @ 100 mls/hr IV X1 ONE Stop: 03/16/25 06:21 Metoprolol Tartrate (Metoprolol Tartrate 25 Mg Tablet) 50 mg PO X1 ONE Stop: 03/16/25 01:32 Last Admin: 03/16/25 02:41 Dose: 50 mg Morphine Sulfate (Morphine Sulf Inj 10 Mg/Ml Vial) 2 mg IVP X1 ONE Stop: 03/16/25 00:53 Last Admin: 03/16/25 01:34 Dose: 2 mg Nitroglycerin (Nitroglycerin Oint 2% 1 Inch Packet) 2 inch TOP X1 ONE Stop: 03/16/25 00:53 Last Admin: 03/16/25 01:35 Dose: 2 inch Sodium Chloride (Sodium Chloride Rt 10% 15 Ml Nebu) 5 ml INH X1 ONE Stop: 03/16/25 06:36 Assessment & Plan Plan Dio Burnett is 69 yr male with PMH of HTN and ESRD on HD M/w/F with Dr. Narvaez. Presenting with chief complaint of shortness of breath since past 2 days after missing hemodialysis due to feeling ill. Nephrology consulted for management of patient's hemodialysis. #ESRD on HD M/W/F Patient history as stated. Missed Saturday session. BUN 52, creatinine 8.7 on admission. BNP greater than 3200. At time of exam patient showed significant improvement with hemodialysis, was [address] through therapy. - Hemodialysis today with goal of 3.5 L fluid removal - Likely resume patient's usual hemodialysis schedule starting tomorrow - Renally dose medications - Avoid nephrotoxins #AHRF 2/2 volume overload #Mild respiratory acidosis, resolved Patient missed hemodialysis session then developed shortness of breath, progressive, worse with lying down. Patient significantly fluid overloaded based on edema, bibasilar crackles on exam. ABG showed mild respiratory acidosis with pH 7.33 and CO2 37, elevated BNP. Patient initially on BiPAP, was able to be weaned down to 2 L O2 via nasal cannula with hemodialysis. Repeat ABG showed pH 7.5, pCO2 37, PO289, bicarb 28. - Hemodialysis as above - O2 saturated, titrate as needed - Continuous oxygen monitoring - Treatment of pain acquired pneumonia as per primary team #Sepsis 2/2 CAP #Transaminitis #Hypertensive emergency #Hx HTN Management as per the primary team. Plan of care discussed with attending Dr. Narvaez. Odin Gee MD PGY?1 Attending Provider Attestation/Addendum Patient seen and examined with resident physician Dr. Freeman. Note reviewed, agree with findings and recommendations. Patient missed her dialysis yesterday and came with fluid overload. Was on BiPAP last night. Currently on nasal cannula. Patient currently seen on dialysis. Tolerating dialysis without any problems. Hemodialysis for 3 hours, 2K, ultrafiltration 2-3 L, Epogen 6000, no heparin ordered. Plan of care discussed with the dialysis nurse. Please see dialysis flowsheet for further details. Next dialysis scheduled for tomorrow to catch up with Saturday, Saturday schedule. Thank you Dr. Michele for allowing me to participate in the care of Mr. Burnett
[2025-03-16] MEDS: cefTRIAXone/D5w 1gm IV premix 1 GM/50 ML BAG IV (13:57)
[2025-03-16] MEDS: HEPARIN SOD INJ 5000 UNIT/ML VIAL SC (13:58)
[2025-03-16] MEDS: AZITHROMYCIN INJ 500 MG in SODIUM CHLORIDE 0.9% 250 ML 250 ML 250 MG IV (14:30)
[2025-03-17] VITALS (26 sets, daily range): BP systolic 124–188; BP diastolic 77–107; PULSE 48–99; RESP 15–94; TEMP 36.4–37; O2SAT 97–100
[2025-03-17 06:07] LABS: Basophils # (Auto) 0.1 Thou/mm3 (0.0-0.2); Basophils % (Auto) 1 % (0-2.5); Eosinophils # (Auto) 0.1 Thou/mm3 (0.0-0.5); Eosinophils % (Auto) 2 % (0-10); Hematocrit 32.1 % (41.0-53.0); Hemoglobin 10.8 g/dL (13.5-16.0); Immature Granulocytes % (Auto) 0 % (0-0); Immature Granulocytes Auto 0.03 Thou/mm3 (0.00-0.00); Lymphocytes # (Auto) 1.4 Thou/mm3 (1.0-4.8); Lymphocytes % (Auto) 16 % (10-50); Mean Corpuscular HGB Conc 33.6 g/dl (31.0-37.0); Mean Corpuscular Hemoglobin 31.3 pg (25.0-35.0); Mean Corpuscular Volume 93 fL (80-100); Monocytes # (Auto) 0.7 Thou/mm3 (0.0-0.8); Monocytes % (Auto) 8 % (0-12); Neutrophils # (Auto) 6.5 Thou/mm3 (1.8-7.7); Neutrophils % (Auto) 74 % (37-80); Nucleated Red Blood Cell % 0 /100 WBC (0); Platelet Count 195 Thou/mm3 (140-440); RDW Standard Deviation 48.4 fL (35.1-43.9); Red Blood Count 3.45 Miln/mm3 (4.50-5.90); White Blood Count 8.8 Thou/mm3 (3.8-10.6)
[2025-03-17 06:33] LABS: Alanine Aminotransferase 42 U/L (10-49); Albumin, Serum 3.8 gm/dL (3.4-4.8); Albumin/Globulin Ratio 1.4 (1.2-2.2); Alkaline Phosphatase 134 U/L (46-116); Anion Gap 14 (7-16); Aspartate Amino Transferase 24 U/L (0-34); BUN/Creatinine Ratio 5 Ratio (12-20); Bilirubin,Total 0.5 mg/dL (0.3-1.2); Blood Urea Nitrogen 30 mg/dL (9-23); Calcium 9.2 mg/dL (8.3-10.6); Calcium (Corrected) 9.4 mg/dL (8.5-10.1); Carbon Dioxide 25.9 mMol/L (20.0-31.0); Chloride 95 mMol/L (98-107); Creatinine (Component) 6.2 mg/dL (0.6-1.3); Estimated Creatinine Clearance 11.2 mL/min (>60); Globulin 2.7 gm/dL (2.3-3.5); Glucose 83 mg/dL (74-106); Osmolality,Calculated 275 (275-295); Phosphorous 5.4 mg/dL (2.4-5.1); Potassium 3.7 mMol/L (3.4-5.1); Sodium 135 mMol/L (136-145); Total Protein 6.5 gm/dL (5.7-8.2); eGFR 9 See Note
[2025-03-17 06:48] LABS: Magnesium 2.1 mg/dL (1.6-2.6)
--- NOTE | 2025-03-17 08:53 | PD.RESPRO ---
Documentation for date of: 03/17/25 Subjective Subjective Interval history: Dio Burnett is 69 y/0 male with PMH of HTN and ESRD on HD M/W/F with Dr. Narvaez. Presenting with chief complaint of shortness of breath since past 2 days. Patient states that the shortness of breath worsened when he was laying down in bed, did not need to use any pillows, would resolve sometime later. Denies any shortness of breath with any physical activity. Denies any chest pain, lower extremity swelling, endorses normal daily activity. He missed hemodialysis session this past Saturday due to feeling sick with a runny nose and some lethargy. States that he started dialysis about 2 years ago and has it through AV fistula on left arm. Patient also denies any fever, cough, chest pain. ED COURSE: In the ED, BP 220/133, HR 103, RR 20, patient started on BiPAP after ABG showed mild respiratory acidosis with pH 7.33 and CO2 37. CBC significant for leukocytosis 15, stable hemoglobin, electrolytes within normal limits. Kidney function and consistency with ESRD BUN 52, creatinine 8.7. Transaminitis with AST 84, ALT 64, ALP 178. Troponins mildly elevated 0.288 and down trended to 0.227. BNP greater than 3280. CT head negative, CTA negative for PE, possible pneumonia. CT A/P showed left renal lesions. He was given Clonidine 0.1 mg p.o., metoprolol tartrate 50 mg p.o., furosemide 80 mg IV, nitro patch, 2 mg IV morphine while in the ED. Nephrology was consulted for management of dialysis. Patient seen and examined during dialysis. Patient was only part way through, had approximately 1 L fluid removed, but or showed significant symptomatic improvement. Was previously on BiPAP, at time of exam was on 2 L of O2, saturating well and breathing comfortably. At that time patient denied fevers, chills, chest pain, shortness of breath, nausea, vomiting. Patient still notably edematous with significant crackles on exam, goal for hemodialysis is 3.5 L fluid removal. Patient will likely be able to resume usual hemodialysis schedule starting tomorrow. WBC 14.9, hemoglobin 12.6, sodium 132, potassium 3.8, bicarb 20.8, BUN 52, creatinine 0.7, EGFR 6. BNP greater than 3200. 03/17/2025: Patient seen and examined during dialysis, resting comfortably. Patient overall felt well, saturating well on room air, denied chest pain, shortness of breath, nausea, vomiting, fever, chills. Minimal edema, lung sounds and mild rhonchi left lower lung field without crackles. WBC 8.8, hemoglobin 10.8, sodium 135, potassium 3.7, bicarb 25.9, phosphorus 5.4. Patient receiving additional dialysis session today, which is patient's usual schedule dialysis. Patient cleared for discharge from nephrology perspective following dialysis session today, after which she is to resume outpatient dialysis per previous schedule. Exam Vital Signs Temp Pulse Resp BP Pulse Ox O2 Del Method O2 Flow Rate 98.2 F 78 18 174/102 H 97 Room Air 2 03/17/25 07:44 03/17/25 08:45 03/17/25 07:48 03/17/25 08:45 03/17/25 07:44 03/17/25 04:00 03/16/25 10:06 FiO2 25 03/16/25 06:25 Narrative Exam PE: Gen: Well-developed and well-nourished. HEENT: NCAT, PERRLA, EOMI, MMM, anicteric conjunctivae. CVS: normal S1 and S2. RRR. No M/R/G. Resp: Mild left lower lung field rhonchi, lungs otherwise clear. No crackles. Abd: soft, non-tender, non-distended. BS+ in all 4 quadrants. MSK: Good ROM in BUE & BLE. No rash. 1+ pitting edema BLE. Neuro: CN II-XII grossly intact. Strength 5/5 in BUE & BLE. Alert and oriented x3. Psych: appropriate mood and affect. Objective Labs 03/17/25 04:40 03/17/25 04:40 Labs: Laboratory Results - last 24 hr 03/16/25 03/17/25 12:10 04:40 WBC 8.8 D RBC 3.45 L Hgb 10.8 L Hct 32.1 L MCV 93 MCH 31.3 MCHC 33.6 RDW Std Deviation 48.4 H Plt Count 195 Neut % (Auto) 74 Lymph % (Auto) 16 [place] % (Auto) 8 Eos % (Auto) 2 Baso % (Auto) 1 Neut # (Auto) 6.5 Lymph # (Auto) 1.4 [place] # (Auto) 0.7 Eos # (Auto) 0.1 Baso # (Auto) 0.1 Immature Gran # (Auto) 0.03 H Absolute Nucleated RBC 0.00 Immature Gran % 0 Nucleated RBC % 0 Puncture Site Right Radial ABG pH 7.50 H D ABG pCO2 37 ABG pO2 89 ABG HCO3 28 H ABG O2 Saturation 97 ABG Base Excess 5 H Oxygen Liter Flow 2 Sodium 135 L Potassium 3.7 Chloride 95 L Carbon Dioxide 25.9 Anion Gap 14 BUN 30 H Creatinine 6.2 H* D Estim Creat Clear Calc 11.2 L eGFR 9 L* BUN/Creatinine Ratio 5 L Glucose 83 D Calculated Osmolality 275 Calcium 9.2 Corrected Calcium 9.4 Phosphorus 5.4 H Magnesium 2.1 Total Bilirubin 0.5 AST 24 ALT 42 Alkaline Phosphatase 134 H D Total Protein 6.5 Albumin 3.8 D Globulin 2.7 Albumin/Globulin Ratio 1.4 ABG Interpretation ABG results: 03/16/25 03/16/25 01:04 12:10 ABG pH 7.33 L 7.50 H D ABG pCO2 37 37 ABG pO2 83 89 ABG HCO3 19 L 28 H ABG O2 Saturation 96 97 ABG Base Excess -6 L 5 H Quality Measures Quality Measures VTE prophylaxis Advance care planning discussed with:: patient Assessment & Plan Assessment Current Active Medications: Generic Name Dose Route Start Last Admin Trade Name Freq PRN Reason Stop Dose Admin Heparin Sodium (Porcine) 5,000 unit 03/16/25 06:15 03/17/25 05:11 Heparin Sod Inj 5000 Unit/Ml Vial SC 03/30/25 06:14 Not Given Q8HR [facility] Azithromycin 500 mg/ Sodium 250 mls @ 250 mls/hr 03/17/25 09:00 Chloride IV 03/24/25 08:59 QDAY [facility] Ceftriaxone Sodium/Dextrose 1 gm in 50 mls @ 100 mls/hr 03/17/25 09:00 Rocephin/D5w 1gm Iv Premix IV 03/24/25 08:59 QDAY [facility]YSON Ondansetron HCl 4 mg 03/16/25 06:10 Ondansetron Inj 2 Mg/Ml Inj 2 Ml IVP 04/15/25 06:09 Q6H PRN NAUSEA OR VOMITING Protocol Sennosides 1 tab 03/16/25 06:10 Senna Tablet PO 04/15/25 06:09 QDAY PRN constipation Protocol Plan Dio Burnett is 69 yr male with PMH of HTN and ESRD on HD M// with Dr. Narvaez. Presenting with chief complaint of shortness of breath since past 2 days after missing hemodialysis due to feeling ill. Nephrology consulted for management of patient's hemodialysis. #ESRD on HD M/W/ Patient history as stated. Missed Saturday session. BUN 52, creatinine 8.7 on admission. BNP greater than 3200. At time of exam patient showed significant improvement with hemodialysis, was [address] therapy. Patient received hemodialysis, showed significant treatment with decreased edema, lung sounds improved without crackles. - Dialysis today as per patient's usual schedule - Renally dose medications - Avoid nephrotoxins - Patient cleared for discharge from cardiology perspective following dialysis session today #AHRF 2/2 volume overload, resolved #Mild respiratory acidosis, resolved Patient missed hemodialysis session then developed shortness of breath, progressive, worse with lying down. Patient significantly fluid overloaded based on edema, bibasilar crackles on exam. ABG showed mild respiratory acidosis with pH 7.33 and CO2 37, elevated BNP. Patient initially on BiPAP, was able to be weaned down to 2 L O2 via nasal cannula with hemodialysis. Repeat ABG showed pH 7.5, pCO2 37, PO289, bicarb 28. - Hemodialysis as above - O2 saturated, titrate as needed - Continuous oxygen monitoring - Treatment of pain acquired pneumonia as per primary team #Sepsis 2/2 CAP #Transaminitis #Hypertensive emergency #Hx HTN Management as per the primary team. Plan of care discussed with attending Dr. Narvaez. Odin Gee MD PGY?1 Attending Provider Attestation/Addendum Patient seen and examined with resident physician Dr. Freeman. Note reviewed, agree with findings and recommendations. Patient currently seen on dialysis. Tolerating dialysis without any problems. Hemodialysis for 3 hours, 2K, ultrafiltration 2-3 L, Epogen 6000, no heparin ordered. Plan of care discussed with the dialysis nurse. Please see dialysis flowsheet for further details.
[2025-03-17] MEDS: cefTRIAXone/D5w 1gm IV premix 1 GM/50 ML BAG IV (11:31)
[2025-03-17] MEDS: cloNIDine HCL 0.1 MG TABLET PO (11:31)
[2025-03-17] MEDS: AZITHROMYCIN INJ 500 MG in SODIUM CHLORIDE 0.9% 250 ML 250 ML 250 MG IV (12:07)
[2025-03-17] MEDS: LOSARTAN POTASSIUM 25 MG TABLET 50 MG PO (13:33)
--- NOTE | 2025-03-17 16:45 | ESDS_ITS ---
<Statement entered by Janelle Pizano MD - 03/17/25 22:01> Patient was seen and examined at bedside. Agree on the assessment and plan in this note. - Patient's plan and care discussed with my attending, Dr. Foreign Pizano MD Internal Medicine PGY-2 Planned Discharge Date 03/17/25 DS: Providers Provider Date of admission: 03/16/25 06:10 Primary care physician: Nelson Narvaez MD Admitting Provider: Lacho Cobb MD Attending Provider on Admission: Yves Carrasquillo MD Consults: 03/16/25 05:26 Consult to Nephrology Stat Comment: ESRD Consulting Provider: Nelson Narvaez Attending Provider on DC: Yves Carrasquillo MD Discharging Provider: Benoit Lopes MD DS: Diagnosis Problem List Completed Was Problem List Reviewed/Reconciled?: Yes Hospital Course Hospital Course Hospital course: Dio Burnett is 69 yr male with PMH of HTN and ESRD on HD M/w/F with Dr. Narvaez. Presenting with chief complaint of shortness of breath since past 2 days. Patient states that the shortness of breath worsened when he was laying down in bed, did not need to use any pillows, would resolve sometime later. Nephrology Dr Narvaez was consulted and stated to admit patient for continuing hemodialysis. AHRF 2/2 volume overload, hypertensive emergency, and sepsis secondary to pneumonia. Patient came in and found to have 2 or more SIRS criteria and was evaluated for sepsis. However, based upon further work-up, sepsis was ruled out. With regards to patient's acute respiratory failure with hypoxia he was treated with 2 sessions of hemodialysis after which his condition improved and he no longer required oxygen. Patient's transaminitis also resolved. With regards to his hypertension, patient's home medication clonidine 0.1 Mg p.o. twice daily was resumed and he was also started on losartan 50 Mg p.o. daily after which his systolics improved to the 140s from the 170s. All patient's labs are now returning to his baseline and patient is now clinically stable and fit for discharge to home. Discharge diagnoses: 1. Acute respiratory failure with hypoxia secondary to volume overload?resolved 2. Respiratory acidosis?resolved 3. Community-acquired pneumonia ruled out 4. Transaminitis?resolving 5. Sepsis ruled out 6. Hypertensive urgency?resolved 7. Primary hypertension 8. ESRD on HD M/W/F via AV fistula Discharge plan: ? Follow-up with your primary care provider within 1 week from discharge. Follow-up with the pelvic care provider as you may need echocardiogram imaging to rule out possible heart failure comorbidity. ? Follow-up with your food products tester within 1 week of discharge ? You need to follow-up with the primary care provider regarding your findings that showed possible liver cirrhosis and CT scan ? Use medications as prescribed ? Continue your hemodialysis as per your schedule ? In case of worsening of your symptoms please return to the ED as soon as possible ?Resume your home medication valsartan 80 mg p.o. daily for blood pressure ? Regular blood pressure checks twice a day, call your doctor if your blood pressure above 180/90 We are grateful to be able to participate in Mr. Burnett's care. We wish him the best. Plan of care discussed with Attending Dr. Carrasquillo and PGY2 Dr. Harinder Lopes MD PGY 1 Disclaimer: This note was dictated by speech recognition. Minor errors in brick pointer may be present due to voice recognition software. Time Spent with Patient Time attestation: Total time spent providing and/or coordinating discharge services: Time spent: Greater than 30 minutes (38) Exam Vital Signs Temp Pulse Resp BP Pulse Ox O2 Del Method O2 Flow Rate 98.6 F 99 15 145/89 H 99 Room Air 2 03/17/25 11:25 03/17/25 13:33 03/17/25 11:25 03/17/25 15:09 03/17/25 11:25 03/17/25 11:25 03/16/25 10:06 FiO2 03/16/25 06:25 Narrative Exam Constitutional Alert, oriented x 3 and comfortable HEENT Vision grossly intact. Patent nares. Trachea midline Respiratory Chest normal on inspection and clear auscultation bilaterally Cardiovascular S1 and S2 audible, RRR. No murmurs carotid bruit. No gross JVD. Abdominal Soft and non tender to palpation in all quadrants. BS + Genitourinary No bladder tenderness, no flank pain. Normal to palpation Musculoskeletal Extremities tone within normal limits. No LE edema. AV fistula palpated, thrill felt Neurological CN II - XII grossly intact. Extremity motor and sensation grossly intact. Skin Warm, dry and intact. No apparent lesions. Psychiatric Patient has good affect, is cooperative Discharge Plan Plan Patient Disposition: HOME (Self Care) Patient condition on transfer: Stable and Benefits outweigh risks Care Plan Goals: ? Follow-up with your primary care provider within 1 week from discharge. Follow-up with the pelvic care provider as you may need echocardiogram imaging to rule out possible heart failure comorbidity. ? Follow-up with your food products tester within 1 week of discharge ? You need to follow-up with the primary care provider regarding your findings that showed possible liver cirrhosis and CT scan ? Use medications as prescribed ? Continue your hemodialysis as per your schedule ? In case of worsening of your symptoms please return to the ED as soon as possible ?Resume your home medication valsartan 80 mg p.o. daily for blood pressure ? Regular blood pressure checks twice a day, call your doctor if your blood pressure above 180/90 - Follow up with your primary care physician within 1 week of discharge. If you do not have a primary care physician, please follow up with the [facility] Residents clinic ([phone]) ? If you experience any new, worsening or persistent symptoms either call your primary doctor, or dial 911 or present to the emergency department. Prescriptions/Referrals Prescriptions/Med Rec: New amoxicillin-pot clavulanate 875-125 mg tablet 1 tab PO BID 3 Days Qty: 6 0RF Continued hydralazine 50 mg Tablet 50 mg PO TID sodium bicarbonate 650 mg tablet 650 mg PO BID calcitriol 0.25 mcg capsule 0.25 mcg PO TID ergocalciferol (vitamin D2) 1,250 mcg (50,000 unit) capsule 50,000 unit PO DAILY clonidine HCl 0.1 mg Tablet 0.1 mg PO BID valsartan 80 mg Tablet 80 mg PO QDAY cinacalcet 30 mg tablet 30 mg PO TID Patient Comments: TAKE 1 TABLET BY MOUTH EVERY DAY calcium acetate(phosphat bind) 667 mg capsule 667 mg PO TID Patient Comments: TAKE 2 CAPSULE BY MOUTH 3 TIMES A DAY WITH MEALS Referrals: Nelson Narvaez MD [Primary Care Provider] - Patient/Caregiver Discharge Instructions Discharge Activity: activity as tolerated Education Materials: Hemodialysis Print Language: Spanish Stand Alone Forms: Jessica Award Info., Patient Portal Info Letter Discharge Order Discharge Orders: Discharge (Routine); Ordered 03/17/25 Ordered By: Janelle Pizano Quality Discharge Quality Measures VTE prophylaxis MD Attestestation MD Attestation I reviewed labs, imaging, EKG, home medications and prior available records. Face to face evaluation was performed by me. I have personally examined the patient and discussed assessment and plan with the IM team. I reviewed the resident note and agree with the plan with exceptions as below. Acute hypoxic respiratory failure Bilateral pneumonia, sepsis ruled out ESRD on hemodialysis Leukocytosis Elevated troponin, peaked Status post 2 sessions of hemodialysis Symptoms significantly improved P.o. Augmentin for the pneumonia upon discharge Counseled the patient regarding the importance of compliance with dialysis sessions Outpatient follow-up with nephrology Time spent is 40 minutes. More than 50% of the time was spent on patient education and coordination of care.
== END 2025-03-17 15:50 | disposition home or self-care (01) | DRG 640 ==
LOC: SERX 05:28 → SERHOLD 06:36 → S3SX 11:01
PROVIDERS: Admitting Provider Internal Medicine; Emergency Provider Emergency Medicine; PCP Internal Medicine; Visit Provider Student in an Organized Health Care Education/Training Program
DX: E87.70 Fluid overload, unspecified (principal); J96.01 Acute respiratory failure with hypoxia; N18.6 End stage renal disease; I16.1 Hypertensive emergency; I13.2 Hypertensive heart and chronic kidney disease with heart failure and with stage 5 chronic kidney disease, or end stage renal disease; C18.9 Malignant neoplasm of colon, unspecified; K57.92 Diverticulitis of intestine, part unspecified, without perforation or abscess without bleeding; E87.29 Other acidosis; I50.9 Heart failure, unspecified; Z99.2 Dependence on renal dialysis; Z87.891 Personal history of nicotine dependence; R74.01 Elevation of levels of liver transaminase levels; Z79.899 Other long term (current) drug therapy; K70.31 Alcoholic cirrhosis of liver with ascites
CPT/HCPCS: 36415; 36600; 70450; 71045; 71275; 74177; 80053; 80074; 81001; 82248; 82803; 83735; 83880; 84100; 84484; 85025; 85379; 85730; 86706; 87040; 87077; 87186; 87400; 87811; 93005; 93225; 94660; 96374; 96375; 99291; A4649; J0456; J0696; J1644; J1938; J2270; J7050; Q9967; A9270

== ENCOUNTER 2025-06-09 01:46 | Inpatient (IN) | payer OTHER, MEDICARE, SELFPAY ==
[2025-06-09] VITALS (39 sets, daily range): BP systolic 91–193; BP diastolic 69–150; PULSE 64–159; RESP 12–40; TEMP 35.9–39.4; O2SAT 85–100; BMI 24.3
--- NOTE | 2025-06-09 01:56 | PD.EDSOB ---
ED SOB =RME/HPI General Chief Complaint: Shortness of Breath/Dyspnea Stated Complaint: SOB Time Seen by Provider: 06/09/25 02:01 Arrival date/time: 06/09/25 01:46 RME / HPI RME / HPI Narrative: See MDM for HPI documentation. Related Data Home Medications ?Medication ?Instructions ?Recorded ?Confirmed calcitriol 0.25 mcg capsule 0.25 mcg PO TID 06/03/23 12/04/23 ergocalciferol (vitamin D2) 1,250 50,000 unit PO DAILY 06/03/23 03/16/25 mcg (50,000 unit) capsule hydralazine 50 mg tablet 50 mg PO TID 06/03/23 12/04/23 sodium bicarbonate 650 mg tablet 650 mg PO BID 06/03/23 03/16/25 clonidine HCl 0.1 mg tablet 0.1 mg PO BID 06/05/23 03/16/25 valsartan 80 mg tablet 80 mg PO QDAY 10/09/23 12/04/23 calcium acetate(phosphat bind) 667 667 mg PO TID 03/16/25 03/16/25 mg capsule cinacalcet 30 mg tablet 30 mg PO TID 03/16/25 03/16/25 Allergies Allergy/AdvReac Type Severity Reaction Status Date / Time No Known Allergies Allergy Verified 06/09/25 01:48 Review of Systems Review of Systems Systems Reviewed: All systems reviewed, normal except as documented ED Exam Narrative Physical exam: See MDM for physical exam documentation. Course Course Course Narrative: CXR is ordered for determining the etiology of shortness of breath. 0230: Sepsis alert initiated. Orders made at this time are congruent with ED Adult Sepsis Order List. Re-evaluation is to be completed. 30mL/kg not ordered due to the patient being on dialysis. Quality Measures Possible source: pulmonary Blood cultures ordered: yes Antibiotic ordered: Yes Pertinent labs: 06/09/25 06/09/25 02:17 02:17 Lactic Acid 3.6 H mMol/L (0.4-2.0) Procalcitonin Not Performed. 0.45 ng/ml (0.0-0.49) sepsis Orders Category Date Time Status Admit to Inpatient Status Routine Admission 06/09/25 04:51 Active Patient Condition Routine Admission 06/09/25 04:51 Ordered Bedside COVID-19 Antigen Test NOW Care 06/09/25 01:58 Active Bedside Influenza A&B Antigen Test NOW Care 06/09/25 01:58 Completed COVID-19 Screening Questionnaire NOW Care 06/09/25 03:41 Active Continuous Pulse Oximetry NOW Care 06/09/25 04:51 Completed Decision to Admit X1 Care 06/09/25 03:41 Completed EKG (ED ONLY) *Do not use* NOW Care 06/09/25 02:00 Completed [place] [Urinary Catheter] QS Care 06/09/25 02:29 Active Isolation Precaution QSHIFT Care 06/09/25 04:56 Active Miscellaneous Nursing Order NOW Care 06/09/25 04:51 Active Notify provider NEEDED Care 06/09/25 04:51 Active Saline [Insert IV] NOW Care 06/09/25 01:58 Active Straight [In and Out Catheter] X1 Care 06/09/25 01:58 Completed Consult to Nephrology Stat Cons 06/09/25 02:54 Ordered Referral Respiratory Therapy Stat Cons 06/09/25 01:56 Active Diet Renal Diet 06/09/25 Breakfast Active EKG (ED Only) Stat Exams 06/09/25 02:00 Ordered XR chest 1V portable Stat Exams 06/09/25 02:00 Taken ABG [Arterial Blood Gas] Stat Lab 06/09/25 02:18 Completed ABG [Arterial Blood Gas] Stat Lab 06/09/25 04:43 Completed BNP [B-Type Natriuretic Peptide] Stat Lab 06/09/25 02:17 Completed Bilirubin,Direct Stat Lab 06/09/25 02:17 Completed Blood Culture (Lab) Stat Lab 06/09/25 02:17 Received CBC AM DRAW Lab 06/09/25 05:00 Ordered CBC AM DRAW Lab 06/10/25 05:00 Ordered CBC AM DRAW Lab 06/11/25 05:00 Ordered CBC Stat Lab 06/09/25 02:17 Completed CMP [Comprehensive Metabolic Panel] Stat Lab 06/09/25 02:17 Completed CRP [C-Reactive Protein] Stat Lab 06/09/25 02:17 Completed Comprehensive Metabolic Panel AM DRAW Lab 06/09/25 05:00 Ordered Comprehensive Metabolic Panel AM DRAW Lab 06/10/25 05:00 Ordered Comprehensive Metabolic Panel AM DRAW Lab 06/11/25 05:00 Ordered D-Dimer Stat Lab 06/09/25 02:17 Completed ESR [Sed Rate (ESR)] Stat Lab 06/09/25 02:17 Completed Lactate (Lactic Acid) Stat Lab 06/09/25 02:17 Results Magnesium AM DRAW Lab 06/09/25 05:00 Ordered Magnesium AM DRAW Lab 06/10/25 05:00 Ordered Magnesium AM DRAW Lab 06/11/25 05:00 Ordered Magnesium Stat Lab 06/09/25 02:17 Completed Phosphorous AM DRAW Lab 06/10/25 05:00 Ordered Phosphorous AM DRAW Lab 06/11/25 05:00 Ordered Phosphorous AM DRAW Lab 06/12/25 05:00 Ordered Procalcitonin Stat Lab 06/09/25 02:17 Completed Procalcitonin Stat Lab 06/09/25 02:17 Completed TSH [Thyroid Stimulating Hormone] Stat Lab 06/09/25 02:17 Completed Troponin I Stat Lab 06/09/25 02:17 Completed UA, C/S IF [Urinalysis, C/S if Indicated] Stat Lab 06/09/25 02:20 Completed Acetaminophen Ivpb [Ofirmev Inj] Med 06/09/25 02:30 Discontinued 1,000 mg in 100 ml IV X1 Acetaminophen Supp [Tylenol Supp] Med 06/09/25 04:51 Ordered 650 mg NE Q6HR PRN Azithromycin Inj [Zithromax Inj] 500 mg Med 06/09/25 04:58 Ordered Sodium Chloride 0.9% 250 ml [Ns] 250 ml IV QDAY Cefepime Inj [Maxipime Inj] 1 gm Med 06/09/25 02:30 Discontinued SODIUM CHLORIDE 0.9% (Popper) [Ns 0.9% (P)] 50 ml IV X1 Furosemide Inj [Lasix Inj] Med 06/09/25 01:59 Discontinued 80 mg IVP X1 ONE Glucagon Inj Med 06/09/25 02:30 Discontinued 1 mg IVP X1 ONE Heparin Inj Med 06/09/25 09:00 Ordered 5,000 unit SC Q12HR Ketorolac Inj [Toradol Inj] Med 06/09/25 02:30 Discontinued 30 mg IVP X1 ONE Levalbuterol Rt [Xopenex Rt Phuong] Med 06/09/25 02:30 Discontinued 5 mg INH X1 ONE MethylPREDNISolone.* [SoluMEDROL Inj] Med 06/09/25 02:13 Discontinued 125 mg IVP X1 ONE Metoprolol Tartrate Inj [Lopressor Inj] Med 06/09/25 02:24 Discontinued 5 mg IVP X1 ONE Metoprolol Tartrate [Lopressor] Med 06/09/25 01:58 Discontinued 50 mg PO X1 ONE Morphine Inj Med 06/09/25 01:59 Discontinued 4 mg IVP X1 ONE Nitroglycerin Oint 2% [Nitro-paste Oint 2%] Med 06/09/25 01:59 Discontinued 2 inch TOP X1 ONE Sodium Bicarb 8.4% 50ml Vial* Med 06/09/25 04:30 Discontinued 50 meq IV X1 ONE Sodium Bicarb 8.4% SYR Med 06/09/25 02:29 Discontinued 50 ml IV X1 ONE Sodium Chloride Rt Phuong 0.9% [NS Rt Phuong 0.9%] Med 06/09/25 02:30 Active 3 ml INH PRN PRN Vancomycin Inj 1,000 mg Med 06/09/25 02:30 Active Sodium Chloride 0.9% 500 ml [Ns] 500 ml IV X1 cefTRIAXone/D5w 1gm IV premix [Rocephin/D5w 1gm IV Med 06/09/25 04:57 Ordered premix] 1 gm in 50 ml IV QDAY Code Status Routine Oth 06/09/25 04:51 Ordered BiPAP / CPAP NOW RT 06/09/25 01:56 Active Vital Signs Vital signs: Vital Signs Respiratory Rate 36 H 06/09/25 01:56 Pulse Oximetry (%) 85 L 06/09/25 01:56 Oxygen Delivery Method Room Air 06/09/25 01:56 Shortness of Breath / Dyspnea MDM Narrative MDM Narrative:: This section includes all my notes and documentations, including HPI, PE, and ED course. 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 Patient is scheduled for his routine dialysis session later this morning. No other complaints reported. ROS: All negative except as documented in HPI. Physical Exam: General: Alert and oriented. In severe respiratory distress. Fever noted. Eyes: Conjunctivae and lids clear. ENT: No nasal congestion. Neck: Supple. Heart: Sinus tachycardia noted (150 bpm). Lungs: In respiratory distress. Moderately decreased air movement with severe rales. Abdomen: Soft and nontender. Normal bowel sounds. No distension. No rebound or guarding. Back: No CVA tenderness. Skin: Warm and dry. Neuro: Alert and oriented X 3. I reviewed all diagnostic test results. My interpretation of the EKG is sinus tachycardia with nonspecific ST-T changes. My interpretation of the chest x-ray is increased vascular congestion. Blood tests remarkable for WBC 16.1, ESR 35, Lactic Acid 3.6, Creatinine 10.8, Glucose 173, Troponin 0.165, CRP 7.3, BNP >3280. ABG remarkable for pH 7.11, pCO2 31, pHCO3 13. UA unremarkable. COVID positive. Influenza negative. At this point, diagnoses include: Acute respiratory failure with hypoxia, Sepsis, Pneumonia, COVID, Metabolic acidosis, Acute renal failure, ESRD (end stage renal disease) on dialysis Treatment here included BiPAP, Sodium Bicarb, topical nitroglycerin, Morphine, Metoprolol 5 mg IV and 50 mg orally, Solumedrol, Xopenex, Toradol, Tylenol, Cefepime, Glucagon, Lasix, Vancomycin. I discussed the case with our shell core and molding supervisor and ICU team. About the presentation and exam and diagnostics and treatments here. And need of further care in the hospital. Will accept the patient. Kwaku Swartz MD Patient data External records reviewed:: [facility] previous records (Per chart review, patient was admitted here on 03/16/25 for acute CHF.) Clinical information provided by:: patient Social determinants that could affect healthcare access:: none Patient has the following chronic illnesses:: ESRD on HD (M/W/F), HTN How is presenting disease/condition affected by chronic disease/condition?: exacerbated by Evaluation data The following diagnostics were reviewed and interpreted by me:: lab results, radiology exam(s) and EKG tracing(s) (My interpretation of the EKG is: Sinus tachycardia (154 bpm) with nonspecific ST-T changes. Kwaku Swartz MD) Lab and/or radiology exams considered but not ordered:: none Interpretation Summary: I reviewed all diagnostic test results. My interpretation of the EKG is sinus tachycardia with nonspecific ST-T changes. My interpretation of the chest x-ray is increased vascular congestion. Blood tests remarkable for WBC 16.1, ESR 35, Lactic Acid 3.6, Creatinine 10.8, Glucose 173, Troponin 0.165, CRP 7.3, BNP >3280. ABG remarkable for pH 7.11, pCO2 31, pHCO3 13. UA unremarkable. COVID positive. Influenza negative. Medications / Prescriptions Medications or Prescriptions considered but not ordered:: none Medication administrations:: Medication Administration History Acetaminophen (Acetaminophen Supp 650 Mg Supp) 650 mg NE Q6HR PRN PRN Reason: Fever > 100.4 or pain Stop: 07/09/25 04:50 Heparin Sodium (Porcine) (Heparin Sod Inj 5000 Unit/Ml Vial) 5,000 unit SC Q12HR JEYSON Stop: 06/23/25 08:59 Vancomycin HCl 1,000 mg/ (Sodium Chloride) 500 mls @ 150 mls/hr IV X1 ONE Stop: 06/09/25 05:49 Last Admin: 06/09/25 03:53 Dose: 150 mls/hr Documented By: ADAN Ceftriaxone Sodium/Dextrose (Rocephin/D5w 1gm Iv Premix) 1 gm in 50 mls @ 100 mls/hr IV QDAY JEYSON Stop: 06/16/25 04:56 Azithromycin 500 mg/ Sodium (Chloride) 250 mls @ 250 mls/hr IV QDAY JEYSON Stop: 06/16/25 04:57 Sodium Chloride (Sodium Chloride Rt Phuong 0.9% 3 Ml Nebu) 3 ml INH PRN PRN PRN Reason: SOLN Stop: 07/09/25 02:29 Discontinued Medications Furosemide (Furosemide Inj 10 Mg/Ml 4ml Vial) 80 mg IVP X1 ONE Stop: 06/09/25 02:00 Last Admin: 06/09/25 02:12 Dose: 80 mg Documented By: ADAN Glucagon (Glucagon Inj 1 Mg Vial) 1 mg IVP X1 ONE Stop: 06/09/25 02:31 Last Admin: 06/09/25 02:50 Dose: 1 mg Documented By: ADAN Cefepime HCl 1 gm/ Sodium (Chloride) 50 mls @ 100 mls/hr IV X1 ONE Stop: 06/09/25 02:59 Last Infusion: 06/09/25 03:52 Dose: Infused Documented By: Admin: 06/09/25 02:49 Dose: 100 mls/hr Documented By: ADAN Acetaminophen (Ofirmev Inj) 1,000 mg in 100 mls @ 250 mls/hr IV X1 ONE Stop: 06/09/25 02:53 Last Infusion: 06/09/25 03:11 Dose: Infused Documented By: Admin: 06/09/25 02:47 Dose: 250 mls/hr Documented By: ADAN Ketorolac Tromethamine (Ketorolac Inj 30 Mg/Ml Vial) 30 mg IVP X1 ONE Stop: 06/09/25 02:31 Last Admin: 06/09/25 02:45 Dose: 30 mg Documented By: CB Levalbuterol HCl (Levalbuterol Rt 1.25 Mg/0.5 Ml Nebu) 5 mg INH X1 ONE Stop: 06/09/25 02:31 Last Admin: 06/09/25 03:32 Dose: 5 mg Documented By: SC Methylprednisolone Sodium Succinate (Methylprednisolone Sod Succ 62.5 Mg/Ml 2ml Vial) 125 mg IVP X1 ONE Stop: 06/09/25 02:14 Last Admin: 06/09/25 02:46 Dose: 125 mg Documented By: ADAN Metoprolol Tartrate (Metoprolol Tartrate 25 Mg Tablet) 50 mg PO X1 ONE Stop: 06/09/25 01:59 Last Admin: 06/09/25 02:09 Dose: 50 mg Documented By: ADAN Metoprolol Tartrate (Metoprolol Tartrate Inj 1 Mg/Ml Amp 5 Ml) 5 mg IVP X1 ONE Stop: 06/09/25 02:25 Last Admin: 06/09/25 02:45 Dose: 5 mg Documented By: ADAN Morphine Sulfate (Morphine Sulf Inj 10 Mg/Ml Vial) 4 mg IVP X1 ONE Stop: 06/09/25 02:00 Last Admin: 06/09/25 02:11 Dose: 4 mg Documented By: ADAN Nitroglycerin (Nitroglycerin Oint 2% 1 Inch Packet) 2 inch TOP X1 ONE Stop: 06/09/25 02:00 Last Admin: 06/09/25 02:11 Dose: 2 inch Documented By: ADAN Sodium Bicarbonate (Sodium Bicarb Inj 8.4% Syr 50 Ml Syringe) 50 ml IV X1 ONE Stop: 06/09/25 02:30 Last Admin: 06/09/25 02:47 Dose: 50 ml Documented By: ADAN Sodium Bicarbonate (Sodium Bicarb Inj 8.4% 1 Meq/Ml 50 Ml Vial) 50 meq IV X1 ONE Stop: 06/09/25 04:31 Sodium Bicarb, Nitroglycerin, Morphine, Metoprolol, Solumedrol, Xopenex, Toradol, Tylenol, Cefepime, Glucagon, Lasix, Vancomycin Consultations Consultation(s) initiated? (list below): Yes Consultation #1 (Physician, Specialty, Details): I discussed the case with our shell core and molding supervisor and ICU team. About the presentation and exam and diagnostics and treatments here. And need of further care in the hospital. Will accept the patient. Diagnosis Shortness of Breath Differential Diagnosis: acute exacerbation of chronic obstructive airways disease, congestive heart failure, community acquired pneumonia, asthma with exacerbation and pulmonary embolism Most likely diagnosis given after review of the tests above:: At this point, diagnoses include: Acute respiratory failure with hypoxia, Sepsis, Pneumonia, COVID, Metabolic acidosis, Acute renal failure, ESRD (end stage renal disease) on dialysis Admission Indicated Admission indicated?: indicated Explain why admission is indicated or not indicated:: At this point, diagnoses include: Acute respiratory failure with hypoxia, Sepsis, Pneumonia, COVID, Metabolic acidosis, Acute renal failure, ESRD (end stage renal disease) on dialysis Admission Request Was there a request for admission?: Yes Admission Attestation Admission request attestation: Discussed case with with our ICU service regarding admission. Discussed patients ED course, exam findings, labs, and radiology results. Agreed to accept the patient for admission. Disposition Plan Disposition Plan: Admit Critical Care Time Critical Care Time Critical Care Time: Yes Total Critical Care Time (min.): 35 Attestation: Due to a high probability of clinically significant, life threatening deterioration, the patient required my highest level of preparedness to intervene emergently and I personally spent this critical care time directly and personally managing the patient. This critical care time included obtaining a history; examining the patient; ordering and review of studies; arranging urgent treatment with development of a management plan; evaluation of patient's response to treatment; frequent reassessment; and discussions with family and other providers. It was exclusive of separately billable procedures and treating other patients and teaching time. Kwaku Swartz MD Discharge Plan Plan Patient Disposition: Admit Acute Care w/in Hospital Prescriptions/Referrals Prescriptions/Med Rec: No Action hydralazine 50 mg Tablet 50 mg PO TID sodium bicarbonate 650 mg tablet 650 mg PO BID calcitriol 0.25 mcg capsule 0.25 mcg PO TID ergocalciferol (vitamin D2) 1,250 mcg (50,000 unit) capsule 50,000 unit PO DAILY clonidine HCl 0.1 mg Tablet 0.1 mg PO BID valsartan 80 mg Tablet 80 mg PO QDAY cinacalcet 30 mg tablet 30 mg PO TID Patient Comments: TAKE 1 TABLET BY MOUTH EVERY DAY calcium acetate(phosphat bind) 667 mg capsule 667 mg PO TID Patient Comments: TAKE 2 CAPSULE BY MOUTH 3 TIMES A DAY WITH MEALS Referrals: Nelson Narvaez MD [Primary Care Provider] - In 1 week Problem List Clinical Impression: Acute respiratory failure with hypoxia, Sepsis, Pneumonia, COVID, Metabolic acidosis, Acute renal failure, ESRD (end stage renal disease) on dialysis Patient/Caregiver Discharge Instructions Print Language: Bruneian Stand Alone Forms: Jessica Award Info., Patient Portal Info Letter
--- NOTE | 2025-06-09 02:00 | EKG_ITS ---
[facility] Test Date: 2025-06-09 Pat Name: CELIO FRIEDMAN Department: Room: - Gender: Male Commercial Collector: [id number] : 1955 Requested By: Kwaku Rosales Order Number: [id number] Reading MD: Kwaku Rosales Measurements Intervals [place] Rate: 70 P: 55 WI: 150 QRS: -38 QRSD: 98 T: 43 QT: 455 QTc: 492 Interpretive Statements SINUS RHYTHM MARKED LEFT AXIS DEVIATION MINIMAL VOLTAGE CRITERIA FOR LVH, CONSIDER NORMAL VARIANT PROLONGED QT INTERVAL Compared to ECG 03/16/2025 01:21:10 Left-axis deviation now present Prolonged QT interval now present /store/S0/[id number]
--- NOTE | 2025-06-09 02:00 | XR_ITS ---
Examination: AP chest single view Technique one AP portable upright chest single view Date and time: June 09, 2025 0204 hours, comparison March 16, 2025 INDICATIONS: Difficulty breathing today. FINDINGS: The heart is not significantly enlarged. However, there is significant vascular congestion and septal edema in the perihilar and basilar regions Prominent osteopenia IMPRESSION: Mild CHF
[2025-06-09] MEDS: METOPROLOL TARTRATE 25 MG TABLET 50 MG PO (02:09)
[2025-06-09] MEDS: MORPHINE SULF INJ 10 MG/ML VIAL 4 MG IVP (02:11)
[2025-06-09] MEDS: NITROGLYCERIN OINT 2% 1 INCH PACKET 2 INCH TOP (02:11)
[2025-06-09] MEDS: FUROSEMIDE INJ 10 MG/ML 4ML VIAL 80 MG IVP (02:12)
[2025-06-09 02:21] LABS: Base Excess -16 (-3-3); HCO3 13 mEq/L (20-26); Inspired Oxygen, FIO2 50 %; O2 Saturation 99 % (91-98); PCO2 40 mmHg (32.0-48.0); PO2 158 mmHg (83-108)
[2025-06-09 02:26] LABS: Allen Test Performed/OK; Puncture Site Right Radial; pH, Arterial 7.11 (7.35-7.45)
[2025-06-09 02:30] LABS: Lactate (Lactic Acid) 3.6 mMol/L (0.4-2.0)
[2025-06-09 02:31] LABS: Basophils # (Auto) 0.1 Thou/mm3 (0.0-0.2); Basophils % (Auto) 1 % (0-2.5); Eosinophils # (Auto) 0.0 Thou/mm3 (0.0-0.5); Eosinophils % (Auto) 0 % (0-10); Hematocrit 39.0 % (41.0-53.0); Hemoglobin 13.0 g/dL (13.5-16.0); Immature Granulocytes Auto 0.08 Thou/mm3 (0.00-0.00); Lymphocytes # (Auto) 5.6 Thou/mm3 (1.0-4.8); Lymphocytes % (Auto) 35 % (10-50); Mean Corpuscular HGB Conc 33.3 g/dl (31.0-37.0); Mean Corpuscular Hemoglobin 31.8 pg (25.0-35.0); Mean Corpuscular Volume 95 fL (80-100); Monocytes # (Auto) 1.0 Thou/mm3 (0.0-0.8); Monocytes % (Auto) 6 % (0-12); Neutrophils # (Auto) 9.3 Thou/mm3 (1.8-7.7); Neutrophils % (Auto) 58 % (37-80); Nucleated Red Blood Cell # 0.00 Thou/mm3 (0.00-0.00); Nucleated Red Blood Cell % 0 /100 WBC (0); Platelet Count 202 Thou/mm3 (140-440); RDW Standard Deviation 50.3 fL (35.1-43.9); Red Blood Count 4.09 Miln/mm3 (4.50-5.90); White Blood Count 16.1 Thou/mm3 (3.8-10.6)
[2025-06-09 02:39] LABS: Collection Type, Urine Clean Catch
[2025-06-09 02:40] LABS: Sed Rate (ESR) 35 mm/hr (0-20)
[2025-06-09] MEDS: KETOROLAC INJ 30 MG/ML VIAL IVP (02:45)
[2025-06-09] MEDS: METOPROLOL TARTRATE INJ 1 MG/ML AMP 5 ML 5 MG IVP (02:45)
[2025-06-09 02:46] LABS: Bilirubin,Urine Negative (Negative); Blood,Urine Negative (Negative); Clarity,Urine Clear (Clear/Hazy); Color,Urine Lt-Yellow (Lt Yel-Yel); Culture Indicated,Urine Not Indicated; Glucose, Urine 2+ (Negative); Hyaline Casts,Urine < 1 /hpf (0-1); Ketones,Urine Negative (Negative); Leukocyte Esterase,Urine Negative (Negative); Nitrite,Urine Negative (Negative); PH,Urine 7.5 (5.0-7.0); Protein,Urine 2+ (Neg - Trace); RBC,Urine 4 /hpf (0-3); Specific Gravity,Urine 1.013 (1.001-1.035); Squamous Epithelial Cell,Urine < 1 /hpf (0-5); Urobilinogen,Urine Negative mg/dL (0.0-1.0); WBC,Urine 1 /hpf (0-5)
[2025-06-09] MEDS: MethylPREDNISolone SOD SUCC 62.5 MG/ML 2ML VIAL 125 MG IVP (02:46)
[2025-06-09] MEDS: ACETAMINOPHEN IVPB 1,000 MG/100 ML VIAL 250 MG IV (02:47)
[2025-06-09] MEDS: Sodium Bicarb Inj 8.4% SYR 50 ML SYRINGE IV (02:47)
[2025-06-09] MEDS: CEFEPIME INJ 1 GM in SODIUM CHLORIDE 0.9% (Popper) 50 ML IV (02:49)
[2025-06-09] MEDS: GLUCAGON INJ 1 MG VIAL IVP (02:50)
[2025-06-09 03:01] LABS: D-Dimer 491 ng/mL (<600)
[2025-06-09 03:20] LABS: B-Type Natriuretic Peptide > 3280 pg/mL (0-100)
[2025-06-09 03:21] LABS: Alanine Aminotransferase 12 U/L (10-49); Albumin, Serum 4.5 gm/dL (3.4-4.8); Albumin/Globulin Ratio 1.6 (1.2-2.2); Alkaline Phosphatase 112 U/L (46-116); Anion Gap 19 (7-16); Aspartate Amino Transferase 28 U/L (0-34); BUN/Creatinine Ratio 6 Ratio (12-20); Bilirubin,Direct 0.1 mg/dL (0.0-0.3); Bilirubin,Total 0.3 mg/dL (0.3-1.2); Blood Urea Nitrogen 63 mg/dL (9-23); C-Reactive Protein 7.3 mg/dL (0.0-0.9); Calcium 9.6 mg/dL (8.3-10.6); Calcium (Corrected) 9.6 mg/dL (8.5-10.1); Carbon Dioxide 15.1 mMol/L (20.0-31.0); Chloride 97 mMol/L (98-107); Estimated Creatinine Clearance 6.4 mL/min (>60); Globulin 2.9 gm/dL (2.3-3.5); Glucose 173 mg/dL (74-106); Magnesium 2.4 mg/dL (1.6-2.6); Osmolality,Calculated 284 (275-295); Potassium 4.6 mMol/L (3.4-5.1); Sodium 131 mMol/L (136-145); Thyroid Stimulating Hormone 1.76 uIU/mL (0.55-4.78); Total Protein 7.4 gm/dL (5.7-8.2); eGFR 5 See Note
[2025-06-09 03:23] LABS: Creatinine (Component) 10.8 mg/dL (0.6-1.3)
[2025-06-09 03:25] LABS: Troponin I 0.165 ng/mL (0.0-0.045)
[2025-06-09 03:26] LABS: Procalcitonin 0.45 ng/ml (0.0-0.49)
[2025-06-09] MEDS: LEVALBUTEROL RT 1.25 MG/0.5 ML NEBU 5 MG INH (03:32)
[2025-06-09] MEDS: Vancomycin Inj 1,000 MG in SODIUM CHLORIDE 0.9% 500 ML 500 ML 150 MG IV (03:53)
--- NOTE | 2025-06-09 04:51 | PD.RESHP ---
Documentation for date of: 06/09/25 HPI History of Present Illness Chief complaint: SOB History of present illness: 69 y/o F with PMHx significant for HTN, ESRD (M/W/F) presented to ED with chief complaint of shortness of breath. Symptoms progressively worsened since patient missed his Saturday dialysis session. Patient states he missed a session due to general feeling of malaise and runny nose. Patient also notes he has had a cough productive of sputum for 3 days. Patient was admitted in February 2025 for similar presentation, treated with inpatient dialysis for fluid overload. Patient follows with Dr. Narvaez. Patient denies fever, chills, chest pain, nausea, vomiting, abdominal pain. ED COURSE: Labs significant for: WBC 16.1, serum bicarb 15.1, lactic acid 3.6. Troponin 0.165, BNP greater than 3200, CRP 7.3, ESR 35, Pro-Forrest negative. ABG showed pH 7.11, PCO2 40, PO2 185. COVID test positive. Imaging significant for: Chest x-ray showing vascular congestion. Patient started on BiPAP for acute hypoxic respiratory failure in the setting of fluid overload, with acidosis. Patient received metoprolol, nitro, morphine, methylprednisolone, bicarb, 1 g Tylenol, cefepime, vanc, DuoNebs while in the ED. PMH: HTN, ESRD PSH: Cholecystectomy SH: 10 pack-year smoking history. Denies alcohol use. Occasional marijuana use. Allergies:?No known drug allergies Medications: Med rec's pending Review of Systems Review of Systems Systems Reviewed: All systems reviewed, normal except as documented Past Medical History Past Medical History Comments PMH COMMENT: PMH: HTN, ESRD PSH: Cholecystectomy SH: 10 pack-year smoking history. Denies alcohol use. Occasional marijuana use. Allergies:?No known drug allergies Medications: Med rec's pending Exam Vital Signs Temp Pulse Resp BP Pulse Ox O2 Del Method FiO2 99.1 F 99 17 132/91 H 98 BiPAP 40 06/09/25 04:01 06/09/25 04:01 06/09/25 04:01 06/09/25 04:01 06/09/25 04:01 06/09/25 04:01 06/09/25 03:32 Narrative Exam PE: Gen: Well-developed and well-nourished. HEENT: NCAT, PERRLA, EOMI, MMM, anicteric conjunctivae. CVS: normal S1 and S2. RRR. No M/R/G. Resp: CTA B/L. No rhonchi, rales, crackles or wheezing. Coarse lung sounds. Abd: soft, non-tender, non-distended. BS+ in all 4 quadrants. MSK: Good ROM in BUE & BLE. No edema or rash. Left upper arm fistula. Neuro: CN II-XII grossly intact. Strength 5/5 in BUE & BLE. Alert and oriented x3. Psych: appropriate mood and affect. Results: Labs 06/09/25 02:17 06/09/25 02:17 Labs: Short CBC 06/09/25 Range/Units 02:17 WBC 16.1 H (3.8-10.6) Thou/mm3 Hgb 13.0 L (13.5-16.0) g/dL Hct 39.0 L (41.0-53.0) % Plt Count 202 (140-440) Thou/mm3 BMP 06/09/25 02:17 Sodium 131 L Potassium 4.6 Chloride 97 L Carbon Dioxide 15.1 L BUN 63 H Creatinine 10.8 H* Glucose 173 H Calcium 9.6 Cardiac Enzymes 06/09/25 Range/Units 02:17 Troponin I 0.165 H* (0.0-0.045) ng/mL Liver Function 06/09/25 Range/Units 02:17 Total Bilirubin 0.3 (0.3-1.2) mg/dL Direct Bilirubin 0.1 (0.0-0.3) mg/dL AST 28 (0-34) U/L ALT 12 (10-49) U/L Alkaline Phosphatase 112 (46-116) U/L Albumin 4.5 (3.4-4.8) gm/dL Urine 06/09/25 Range/Units 02:20 Urine Color Lt-Yellow (Lt Yel-Yel) Urine Clarity Clear (Clear/Hazy) Urine pH 7.5 H (5.0-7.0) Ur Specific [place] 1.013 (1.001-1.035) Urine Protein 2+ A (Neg - Trace) Urine Glucose (UA) 2+ A (Negative) ABG Interpretation ABG results: 06/09/25 02:18 ABG pH 7.11 L* ABG pCO2 40 ABG pO2 158 H ABG HCO3 13 L ABG O2 Saturation 99 H ABG Base Excess -16 L Quality Measures Quality Measures VTE prophylaxis Advance care planning discussed with:: patient Medications Home Medications and Allergies Home Medications ?Medication ?Instructions ?Recorded ?Confirmed ?Type calcitriol 0.25 mcg capsule 0.25 mcg PO TID 06/03/23 12/04/23 History ergocalciferol (vitamin D2) 1,250 50,000 unit PO DAILY 06/03/23 03/16/25 History mcg (50,000 unit) capsule hydralazine 50 mg tablet 50 mg PO TID 06/03/23 12/04/23 History sodium bicarbonate 650 mg tablet 650 mg PO BID 06/03/23 03/16/25 History clonidine HCl 0.1 mg tablet 0.1 mg PO BID 06/05/23 03/16/25 History valsartan 80 mg tablet 80 mg PO QDAY 10/09/23 12/04/23 History calcium acetate(phosphat bind) 667 667 mg PO TID 03/16/25 03/16/25 History mg capsule cinacalcet 30 mg tablet 30 mg PO TID 03/16/25 03/16/25 History Allergies Allergy/AdvReac Type Severity Reaction Status Date / Time No Known Allergies Allergy Verified 06/09/25 01:48 Visit Medications Vancomycin HCl 1,000 mg/ (Sodium Chloride) 500 mls @ 150 mls/hr IV X1 ONE Stop: 06/09/25 05:49 Last Admin: 06/09/25 03:53 Dose: 150 mls/hr Sodium Chloride (Sodium Chloride Rt [place] 0.9% 3 Ml Nebu) 3 ml INH PRN PRN PRN Reason: SOLN Stop: 07/09/25 02:29 Discontinued Medications Furosemide (Furosemide Inj 10 Mg/Ml 4ml Vial) 80 mg IVP X1 ONE Stop: 06/09/25 02:00 Last Admin: 06/09/25 02:12 Dose: 80 mg Glucagon (Glucagon Inj 1 Mg Vial) 1 mg IVP X1 ONE Stop: 06/09/25 02:31 Last Admin: 06/09/25 02:50 Dose: 1 mg Cefepime HCl 1 gm/ Sodium (Chloride) 50 mls @ 100 mls/hr IV X1 ONE Stop: 06/09/25 02:59 Last Infusion: 06/09/25 03:52 Dose: Infused Acetaminophen (Ofirmev Inj) 1,000 mg in 100 mls @ 250 mls/hr IV X1 ONE Stop: 06/09/25 02:53 Last Infusion: 06/09/25 03:11 Dose: Infused Ketorolac Tromethamine (Ketorolac Inj 30 Mg/Ml Vial) 30 mg IVP X1 ONE Stop: 06/09/25 02:31 Last Admin: 06/09/25 02:45 Dose: 30 mg Levalbuterol HCl (Levalbuterol Rt 1.25 Mg/0.5 Ml Nebu) 5 mg INH X1 ONE Stop: 06/09/25 02:31 Last Admin: 06/09/25 03:32 Dose: 5 mg Methylprednisolone Sodium Succinate (Methylprednisolone Sod Succ 62.5 Mg/Ml 2ml Vial) 125 mg IVP X1 ONE Stop: 06/09/25 02:14 Last Admin: 06/09/25 02:46 Dose: 125 mg Metoprolol Tartrate (Metoprolol Tartrate 25 Mg Tablet) 50 mg PO X1 ONE Stop: 06/09/25 01:59 Last Admin: 06/09/25 02:09 Dose: 50 mg Metoprolol Tartrate (Metoprolol Tartrate Inj 1 Mg/Ml Amp 5 Ml) 5 mg IVP X1 ONE Stop: 06/09/25 02:25 Last Admin: 06/09/25 02:45 Dose: 5 mg Morphine Sulfate (Morphine Sulf Inj 10 Mg/Ml Vial) 4 mg IVP X1 ONE Stop: 06/09/25 02:00 Last Admin: 06/09/25 02:11 Dose: 4 mg Nitroglycerin (Nitroglycerin Oint 2% 1 Inch Packet) 2 inch TOP X1 ONE Stop: 06/09/25 02:00 Last Admin: 06/09/25 02:11 Dose: 2 inch Sodium Bicarbonate (Sodium Bicarb Inj 8.4% Syr 50 Ml Syringe) 50 ml IV X1 ONE Stop: 06/09/25 02:30 Last Admin: 06/09/25 02:47 Dose: 50 ml Sodium Bicarbonate (Sodium Bicarb Inj 8.4% 1 Meq/Ml 50 Ml Vial) 50 meq IV X1 ONE Stop: 06/09/25 04:31 Assessment & Plan Plan 69 y/o F with PMHx significant for HTN, ESRD (M/W/F) presented to ED with chief complaint of shortness of breath, admitted for acute hypoxic respiratory failure secondary to fluid overload complicated by COVID infection with possible superimposed bacterial infection. #Acute hypoxic respiratory failure secondary to #Fluid overload due to missed dialysis #ESRD (M/W/F) #COVID infection #Possible superimposed bacterial pneumonia Patient presented with chief complaint shortness of breath x 2 days. Symptoms have been progressing since missing dialysis session on Saturday. Patient missed session due to feeling of general malaise and runny nose. Patient also notes cough with Productive of sputum x 3 days. Patient denies fevers, chills. Patient tested positive for COVID. Chest x-ray shows vascular congestion. BNP greater than 3200, ABG on admission 7.11 pH, PCO2 40, PO2 158. Patient placed on BiPAP. Repeat ABG showed pH 7.29, pCO2 31, pO2 118. Patient follows with Dr. Narvaez, has been consulted, plan for dialysis today. - Continue BiPAP overnight - Dr. Narvaez consulted, appreciate recommendations - Plan for urgent dialysis - Airborne isolation while BiPAP is in place - Rocephin 1 g IV daily (started 06/09) - Azithromycin 500 mg IV daily (started 06/09) - Blood cultures drawn, follow-up #HTN #Hypertensive urgency Patient history as stated. Blood pressure on arrival 193/150. Patient denies chest pain, headache, blurry vision. Patient symptoms most likely due to missed dialysis session, complicated by infection. Patient received metoprolol to tartrate in the ED, blood pressure decreased to 117/80. - Holding patient's home antihypertensive medication in setting of rapid decrease in blood pressure - Monitor blood pressure closely - Resume home medication when appropriate DVT prophylaxis: Heparin GI prophylaxis: None Diet: Renal Lines: Peripheral IV, FC Code status: Full code Plan of care discussed with attending Dr. Juarez. Odin Gee MD PGY?2 Attending Provider Attestation/Addendum I have examined the patient, reviewed labs and imaging findings, discussed the case with the resident(s), and reviewed entered orders. I agree with the plan of care as outlined in this note, with these additional summaries/recommendations: After examination of the patient and review of the clinical data, I feel that this patient needs admission to the hospital for further treatment and evaluation. Patient is a 69-year-old male with a medical history of primary hypertension, end-stage renal disease on hemodialysis MWF, vitamin D deficiency, and dyslipidemia presents to [facility] emergency department on 06/09/2025 with chief complaint of shortness of breath. Patient and patient's seen at bedside. Patient reports he missed his Saturday dialysis session. Patient diagnosed with acute hypoxic respiratory failure which is most likely multifactorial secondary to fluid overload from missed hemodialysis +/- infectious etiology. Patient had O2 sat of 85% on room air on arrival. Patient was noted to have pulmonary vascular congestion on chest x-ray and placed on BiPAP in the emergency room which we will continue for now and follow-up repeat ABG. 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 Order echocardiogram to rule out contaminant CHF. Patient was also found to be COVID-positive. Patient was febrile on admission with Tmax 102.9 Fahrenheit which terminated with Tylenol. At this time patient's symptoms are most likely related to fluid overload from missed dialysis and we will defer Decadron and remdesivir for now. We will see how patient responds to dialysis in the morning and if no improvement low threshold to start Decadron/remdesivir. Start IV antibiotics for likely superimposed bacterial pneumonia secondary to gram-negative rods. In-house nephrology consulted with plans for hemodialysis early this morning. Patient has severe metabolic acidosis with respiratory compensation. Admission ABG reviewed with pH 7.11. Patient was given 2 A of bicarb and repeat ABG ordered. Patient will go for HD in AM. If acidosis worsens we will upgrade patient to the intensive care unit. Troponinemia present with troponin 0.165. Elevated troponin most NSTEMI type II from missed hemodialysis rather than ACS or plaque rupture. We will monitor for now. Lactic acidosis present which is most likely from type B from underlying renal failure. Patient was not given fluids secondary to volume overload. We will trend lactic acid and follow-up repeat after hemodialysis. Hypertensive urgency present on admission. With systolic blood pressure into the 190s. Resume home antihypertensive. Patient and patient's updated on the plan and in agreement. All questions answered to satisfaction. Please see residents note for additional details and management. Dr. Ann MD
[2025-06-09 05:00] LABS: Base Excess -11 (-3-3); HCO3 15 mEq/L (20-26); Inspired Oxygen, FIO2 40 %; O2 Saturation 99 % (91-98); PCO2 31 mmHg (32.0-48.0); PO2 118 mmHg (83-108); pH, Arterial 7.29 (7.35-7.45)
[2025-06-09 05:03] LABS: Allen Test Performed/OK; Puncture Site Right Radial
[2025-06-09] MEDS: SODIUM BICARB INJ 8.4% 1 mEq/ML 50 ML VIAL 50 MEQ IV (05:08)
[2025-06-09] MEDS: cefTRIAXone/D5w 1gm IV premix 1 GM/50 ML BAG IV (05:17)
[2025-06-09 05:22] LABS: Reflex Lactate? Y
[2025-06-09 05:44] LABS: Lactic Acid, 3 HR 1.5 mMol/L (0.4-2.0)
[2025-06-09 05:45] LABS: Basophils # (Auto) 0.0 Thou/mm3 (0.0-0.2); Basophils % (Auto) 0 % (0-2.5); Eosinophils # (Auto) 0.0 Thou/mm3 (0.0-0.5); Eosinophils % (Auto) 0 % (0-10); Hematocrit 35.5 % (41.0-53.0); Hemoglobin 11.9 g/dL (13.5-16.0); Immature Granulocytes Auto 0.10 Thou/mm3 (0.00-0.00); Lymphocytes # (Auto) 0.6 Thou/mm3 (1.0-4.8); Lymphocytes % (Auto) 4 % (10-50); Mean Corpuscular HGB Conc 33.5 g/dl (31.0-37.0); Mean Corpuscular Hemoglobin 31.2 pg (25.0-35.0); Mean Corpuscular Volume 93 fL (80-100); Monocytes # (Auto) 0.6 Thou/mm3 (0.0-0.8); Monocytes % (Auto) 4 % (0-12); Neutrophils # (Auto) 14.1 Thou/mm3 (1.8-7.7); Neutrophils % (Auto) 92 % (37-80); Nucleated Red Blood Cell # 0.00 Thou/mm3 (0.00-0.00); Nucleated Red Blood Cell % 0 /100 WBC (0); Platelet Count 172 Thou/mm3 (140-440); RDW Standard Deviation 48.1 fL (35.1-43.9); Red Blood Count 3.81 Miln/mm3 (4.50-5.90); White Blood Count 15.4 Thou/mm3 (3.8-10.6)
[2025-06-09] MEDS: AZITHROMYCIN INJ 500 MG in SODIUM CHLORIDE 0.9% 250 ML 250 ML 250 MG IV (06:04)
[2025-06-09 06:35] LABS: Alanine Aminotransferase 94 U/L (10-49); Albumin, Serum 3.9 gm/dL (3.4-4.8); Albumin/Globulin Ratio 1.4 (1.2-2.2); Alkaline Phosphatase 146 U/L (46-116); Anion Gap 16 (7-16); Aspartate Amino Transferase 227 U/L (0-34); BUN/Creatinine Ratio 6 Ratio (12-20); Bilirubin,Total 0.4 mg/dL (0.3-1.2); Blood Urea Nitrogen 72 mg/dL (9-23); Calcium 8.7 mg/dL (8.3-10.6); Calcium (Corrected) 8.8 mg/dL (8.5-10.1); Carbon Dioxide 19.1 mMol/L (20.0-31.0); Chloride 97 mMol/L (98-107); Creatinine (Component) 11.3 mg/dL (0.6-1.3); Estimated Creatinine Clearance 6.1 mL/min (>60); Globulin 2.7 gm/dL (2.3-3.5); Glucose 155 mg/dL (74-106); Magnesium 2.3 mg/dL (1.6-2.6); Osmolality,Calculated 288 (275-295); Potassium 5.9 mMol/L (3.4-5.1); Sodium 132 mMol/L (136-145); Total Protein 6.6 gm/dL (5.7-8.2); eGFR 4 See Note
--- NOTE | 2025-06-09 07:23 | PD.EDADDENDU ---
Emergency Room Addendum Addendum Narrative: 0715: Notified by nursing staff the patient had a fall. 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 No head injury or LOC. At this time complains of pain to the right hip and right leg. The admitting team came down to assess the patient.
--- NOTE | 2025-06-09 07:28 | XR_ITS ---
Examination: AP right hip single view Technique one AP right hip single view Date and time: June 09, 2025 0849 hours INDICATIONS: Patient fell today with injury to the right hip, right hip pain. FINDINGS: Limited examination. No acute fracture Moderate right hip osteoarthritis IMPRESSION: Limited study No acute right hip fracture noted
--- NOTE | 2025-06-09 07:28 | XR_ITS ---
Examination: Right femur 2 views Technique one AP lateral right femur 2 views Date and time: June 09, 2025 0839 hours INDICATIONS: Patient fell today with injury of the femur, femur pain FINDINGS: No right hip fracture or dislocation Shaft of the femur intact IMPRESSION: No acute fracture
--- NOTE | 2025-06-09 07:28 | PC.NURSE ---
Addendum entered by Jovani Ross RN 06/09/25 07:50: CORRECTED NOTED: @0720- PT USING BEDSIDE COMMODE FOR BM; PT ABLE TO TRANSFER INDEPENDENTLY FROM BED TO BEDSIDE COMMODE. RN LEFT BEDSIDE TO GIVE PT PRIVACY AND TO GRAB PT NON-SLIP SOCKS. @0728 - PT YELLING FOR HELP; RN IMMEDIATELY CAME TO BEDSIDE AND FOUND PT DOWN ON THE FLOOR. PT STATED, I FELL. RN CALLED FOR HELP. DR. SALES AND DR. [place] CAME TO BEDSIDE. PT C/O R LEG PAIN. ABRASIONS NOTED TO R LOWER ABD AND R LATERAL THIGH. PT DENIES HITTING HEAD AND ANY LOSS OF CONSCIOUSNESS. PT DENIES TAKING ANY BLOOD THINNERS. @0730 - AFTER PT'S FALL, PT GUIDED BACK TO BED WITH 3-MAN ASSIST WITH DR. SALES AND ODETTE NOE RN SAFELY. FULL BODY ASSESSMENT PERFORMED. PT EDUCATED THAT HE IS A HIGH FALL RISK AND TO NOT GET UP BY HIMSELF. PT TO USE CALL LIGHT FOR ANY NEED OF ASSISTANCE. VERBAL ORDERS RECEIVED FROM 'S. @0740- CODE STAR CALLED. Original Note: @0720- PT USING BEDSIDE COMMODE FOR BM; PT ABLE TO TRANSFER INDEPENDENTLY FROM BED TO BEDSIDE COMMODE. RN LEFT BEDSIDE TO GIVE PT PRIVACY AND TO @0728 - PT YELLING FOR HELP; RN IMMEDIATELY CAME TO BEDSIDE AND FOUND PT DOWN ON THE FLOOR. PT STATED, I FELL. RN CALLED FOR HELP. DR. SALES AND DR. [place] CAME TO BEDSIDE. PT C/O R LEG PAIN. ABRASIONS NOTED R LOWER ABD AND R LATERAL THIGH. PT DENIES HITTING HEAD AND LOSS OF CONSCIOUSNESS. PT DENIES TAKING ANY BLOOD THINNERS. @0730 - VERBAL ORDERS RECEIVED FROM 'S.
--- NOTE | 2025-06-09 07:29 | XR_ITS ---
Examination: Knee, right , 3 views Technique: Knee AP, lateral, oblique 3 views Date and time of exam: June 09, 2025 0839 hours INDICATIONS: Patient fell today with injury to the knee, knee pain. FINDINGS: Prominent osteopenia. Moderate narrowing medial joint space No fracture or dislocation. IMPRESSION: No fracture or dislocation.
--- NOTE | 2025-06-09 08:56 | PD.RESCONSUL ---
[facility] Data of Consult Consult date: 06/09/25 Requesting Physician: Ezequiel Juarez MD Admitting Provider: Ezequiel Juarez MD Attending Provider: Ezequiel Juarez MD Primary Care Provider: Nelson Narvaez MD Consult Narrative Reason for consult: ESRD on HD MWF with missed HD sessions 2/2 flu. History of present illness: Mr Burnett is a 69 y/o gentleman with PMHx significant for HTN, ESRD (M/W/F) presented to ED with chief complaint of shortness of breath. He states that his symptoms of SOB got worse after he missed his HD session. He reports that he attends his HD regularly, however on saturday he could not attend because he felt ill, having fever, chills, general fatigue and runny nose. He endorses a productive cough with green phlem for the past 3 days. 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 In 02/2025, pt was admitted for a similar presentation requiring inpatient HD for volume overload. 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 ROS Endorses fever, chills, productive cough, fatigue, rhinorrhea, he denies, chest pain, abdominal pain, nausea, vomiting, diarrhea, constipation ED COURSE: Labs significant for: WBC 16.1, serum bicarb 15.1, lactic acid 3.6. Troponin 0.165, BNP greater than 3200, CRP 7.3, ESR 35, Pro-Forrest negative. ABG showed pH 7.11, PCO2 40, PO2 185. COVID test positive. Imaging significant for: Chest x-ray showing vascular congestion. Patient started on BiPAP for acute hypoxic respiratory failure in the setting of fluid overload, with acidosis. Patient received metoprolol, nitro, morphine, methylprednisolone, bicarb, 1 g Tylenol, cefepime, vanc, DuoNebs while in the ED. PMH: HTN, ESRD PSH: Cholecystectomy SH: 10 pack-year smoking history. Denies alcohol use. 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 Allergies:?No known drug allergies 06/09/2025: Patient admitted, Nephrology consulted for urgent HD, Pt seen and examined in HD. Pt is alert and awake, wearing BiPAP. He states that he was feeling short of breath, no chest pain. on exam he has congestion in the upper lung fileds (difficult to appreciate lung sounds while Bipap machine on). cc:: cc: Ezequiel Juarez MD Review of Systems Review of Systems Narrative Review of Systems: as per hpi Exam Vital Signs Temp Pulse Resp BP Pulse Ox O2 Del Method O2 Flow Rate 98.7 F 78 21 H 139/104 H 97 BiPAP 12 06/09/25 07:28 06/09/25 07:28 06/09/25 07:28 06/09/25 07:28 06/09/25 07:28 06/09/25 07:28 06/09/25 07:28 FiO2 40 06/09/25 07:28 Narrative Exam GENERAL: no acute distress, AAO x3, comfortably laying in HD bed with Bipap in place, pt appears volume overloaded. HEENT: Head AT/ NC. Mucous membranes moist. NECK: Supple, no lymphadenopathy, no carotid bruits. CARDIOVASCULAR: RRR. Normal S1/S2, No m/r/g. +1 pitting edema of bilateral LEs. RESPIRATORY: bilateral crackles on auscultation of mid lung rashid. GASTROINTESTINAL: Abdomen soft, non tender no palpable masses. Bowel sounds present MUSCULOSKELETAL:? No cyanosis or edema, no visible joint swelling. NEUROLOGICAL: CN II-XII grossly intact. No focal deficits. Sensation intact, symmetric. PSYCHIATRIC: Awake and alert, not agitated, normal mood and affect. SKIN: No obvious rashes, no jaundice, normal turgor. Results Labs 06/10/25 04:20 06/10/25 04:20 Labs: Short CBC 06/09/25 06/09/25 Range/Units 02:17 05:35 WBC 16.1 H 15.4 H (3.8-10.6) Thou/mm3 Hgb 13.0 L 11.9 L (13.5-16.0) g/dL Hct 39.0 L 35.5 L (41.0-53.0) % Plt Count 202 172 D (140-440) Thou/mm3 BMP 06/09/25 06/09/25 02:17 05:35 Sodium 131 L 132 L Potassium 4.6 5.9 H D Chloride 97 L 97 L Carbon Dioxide 15.1 L 19.1 L BUN 63 H 72 H Creatinine 10.8 H* 11.3 H* D Glucose 173 H 155 H Calcium 9.6 8.7 Cardiac Enzymes 06/09/25 Range/Units 02:17 Troponin I 0.165 H* (0.0-0.045) ng/mL Liver Function 06/09/25 06/09/25 Range/Units 02:17 05:35 Total Bilirubin 0.3 0.4 (0.3-1.2) mg/dL Direct Bilirubin 0.1 (0.0-0.3) mg/dL AST 28 227 H (0-34) U/L ALT 12 94 H (10-49) U/L Alkaline Phosphatase 112 146 H D (46-116) U/L Albumin 4.5 3.9 D (3.4-4.8) gm/dL Urine 06/09/25 Range/Units 02:20 Urine Color Lt-Yellow (Lt Yel-Yel) Urine Clarity Clear (Clear/Hazy) Urine pH 7.5 H (5.0-7.0) Ur Specific [place] 1.013 (1.001-1.035) Urine Protein 2+ A (Neg - Trace) Urine Glucose (UA) 2+ A (Negative) ABG Interpretation ABG results: 06/09/25 06/09/25 02:18 04:43 ABG pH 7.11 L* 7.29 L D ABG pCO2 40 31 L ABG pO2 158 H 118 H D ABG HCO3 13 L 15 L ABG O2 Saturation 99 H 99 H ABG Base Excess -16 L -11 L Quality Measures Quality Measures VTE prophylaxis Advance care planning discussed with:: patient Medications Home Medications and Allergies Home Medications ?Medication ?Instructions ?Recorded ?Confirmed ?Type calcitriol 0.25 mcg capsule 0.25 mcg PO TID 06/03/23 06/10/25 History ergocalciferol (vitamin D2) 1,250 50,000 unit PO DAILY 06/03/23 06/10/25 History mcg (50,000 unit) capsule hydralazine 50 mg tablet 50 mg PO TID 06/03/23 06/10/25 History sodium bicarbonate 650 mg tablet 650 mg PO BID 06/03/23 06/10/25 History clonidine HCl 0.1 mg tablet 0.1 mg PO BID 06/05/23 06/10/25 History valsartan 80 mg tablet 80 mg PO QDAY 10/09/23 06/10/25 History calcium acetate(phosphat bind) 667 667 mg PO TID 03/16/25 06/10/25 History mg capsule cinacalcet 30 mg tablet 30 mg PO TID 03/16/25 06/10/25 History Allergies Allergy/AdvReac Type Severity Reaction Status Date / Time No Known Allergies Allergy Verified 06/09/25 01:48 Visit Medications Acetaminophen (Acetaminophen Supp 650 Mg Supp) 650 mg GA Q6HR PRN PRN Reason: Fever > 100.4 or pain Stop: 07/09/25 04:50 Heparin Sodium (Porcine) (Heparin Sod Inj 5000 Unit/Ml Vial) 5,000 unit SC Q12HR JEYSON Stop: 06/23/25 08:59 Ceftriaxone Sodium/Dextrose (Rocephin/D5w 1gm Iv Premix) 1 gm in 50 mls @ 100 mls/hr IV QDAY JEYSON Stop: 06/17/25 08:59 Azithromycin 500 mg/ Sodium (Chloride) 250 mls @ 250 mls/hr IV QDAY JEYSON Stop: 06/16/25 04:57 Last Infusion: 06/09/25 06:54 Dose: Infused Sodium Chloride (Sodium Chloride Rt [place]uong 0.9% 3 Ml Nebu) 3 ml INH PRN PRN PRN Reason: SOLN Stop: 07/09/25 02:29 Discontinued Medications Furosemide (Furosemide Inj 10 Mg/Ml 4ml Vial) 80 mg IVP X1 ONE Stop: 06/09/25 02:00 Last Admin: 06/09/25 02:12 Dose: 80 mg Glucagon (Glucagon Inj 1 Mg Vial) 1 mg IVP X1 ONE Stop: 06/09/25 02:31 Last Admin: 06/09/25 02:50 Dose: 1 mg Cefepime HCl 1 gm/ Sodium (Chloride) 50 mls @ 100 mls/hr IV X1 ONE Stop: 06/09/25 02:59 Last Infusion: 06/09/25 03:52 Dose: Infused Vancomycin HCl 1,000 mg/ (Sodium Chloride) 500 mls @ 150 mls/hr IV X1 ONE Stop: 06/09/25 05:49 Last Infusion: 06/09/25 06:54 Dose: Infused Acetaminophen (Ofirmev Inj) 1,000 mg in 100 mls @ 250 mls/hr IV X1 ONE Stop: 06/09/25 02:53 Last Infusion: 06/09/25 03:11 Dose: Infused Ceftriaxone Sodium/Dextrose (Rocephin/D5w 1gm Iv Premix) 1 gm in 50 mls @ 100 mls/hr IV X1 ONE Stop: 06/09/25 05:44 Last Infusion: 06/09/25 06:04 Dose: Infused Ketorolac Tromethamine (Ketorolac Inj 30 Mg/Ml Vial) 30 mg IVP X1 ONE Stop: 06/09/25 02:31 Last Admin: 06/09/25 02:45 Dose: 30 mg Levalbuterol HCl (Levalbuterol Rt 1.25 Mg/0.5 Ml Nebu) 5 mg INH X1 ONE Stop: 06/09/25 02:31 Last Admin: 06/09/25 03:32 Dose: 5 mg Methylprednisolone Sodium Succinate (Methylprednisolone Sod Succ 62.5 Mg/Ml 2ml Vial) 125 mg IVP X1 ONE Stop: 06/09/25 02:14 Last Admin: 06/09/25 02:46 Dose: 125 mg Metoprolol Tartrate (Metoprolol Tartrate 25 Mg Tablet) 50 mg PO X1 ONE Stop: 06/09/25 01:59 Last Admin: 06/09/25 02:09 Dose: 50 mg Metoprolol Tartrate (Metoprolol Tartrate Inj 1 Mg/Ml Amp 5 Ml) 5 mg IVP X1 ONE Stop: 06/09/25 02:25 Last Admin: 06/09/25 02:45 Dose: 5 mg Morphine Sulfate (Morphine Sulf Inj 10 Mg/Ml Vial) 4 mg IVP X1 ONE Stop: 06/09/25 02:00 Last Admin: 06/09/25 02:11 Dose: 4 mg Nitroglycerin (Nitroglycerin Oint 2% 1 Inch Packet) 2 inch TOP X1 ONE Stop: 06/09/25 02:00 Last Admin: 06/09/25 02:11 Dose: 2 inch Sodium Bicarbonate (Sodium Bicarb Inj 8.4% Syr 50 Ml Syringe) 50 ml IV X1 ONE Stop: 06/09/25 02:30 Last Admin: 06/09/25 02:47 Dose: 50 ml Sodium Bicarbonate (Sodium Bicarb Inj 8.4% 1 Meq/Ml 50 Ml Vial) 50 meq IV X1 ONE Stop: 06/09/25 04:31 Last Admin: 06/09/25 05:08 Dose: 50 meq Assessment & Plan Plan 69 y/o F with PMHx significant for HTN, ESRD (M/W/F) presented to ED with chief complaint of shortness of breath, admitted for acute hypoxic respiratory failure secondary to fluid overload complicated by COVID infection with possible superimposed bacterial infection. plan for HD today #Acute hypoxic respiratory failure secondary to #Fluid overload due to missed dialysis #ESRD (M/W/F)- followed by Dr. Narvaez #electrolyte abnormalities #hyperkalemia #hyperphosphatemia #nonnephrotic range proteinuria pt presented to the ED with Shortness of breath for the past 2 days. worsening in setting of missed HD session on saturday. pt missed in setting of #COVID illness (symptomatic with fatigue, malaise, and rhinorrhea, and shortness of breath) hyperkalemia likely 2/2 missed HD, will likely correct with HD On 06/09 K 5.9, BUN 72, Cr 11.3, Abg 7.29, HCO3 15 UA with 2+ protein, 2+ glucose HD: 06/09 Plan - HD today (with fluid removal) - CMP daily - CTM volume status - Avoid nephrotoxic medications #COVID infection #Possible superimposed bacterial pneumonia #HTN #Hypertensive urgency Blood pressure on arrival 193/150. Patient denies chest pain, headache, blurry vision likely hypertensive in setting of missed HD session. #trop elevation #transaminitis- hepatocellular pattern -management per primary team Plan discussed with nephrology attending Dr. Solange Carey MD Internal Medicine PGY-1 Attending Provider Attestation/Addendum Patient seen and examined with resident physician Dr. Carey. Note reviewed, agree with findings and recommendations. Admitted with high fevers, acute hypoxic respiratory failure secondary to COVID-pneumonia. Did miss dialysis session Saturday. Potassium seems to be elevated. Labs reviewed. Patient in respiratory isolation patient currently seen on dialysis. Tolerating dialysis without any problems. Hemodialysis for 3 hours, 2K, ultrafiltration 2-3 L, Epogen 6000, no heparin ordered. Plan of care discussed with the dialysis nurse. Please see dialysis flowsheet for further details. Thank you Ezequiel for allowing me to participate in the care of Mr. Burnett
[2025-06-09 11:00] LABS: Phosphorous 5.2 mg/dL (2.4-5.1)
[2025-06-09 11:01] LABS: Troponin I 0.943 ng/mL (0.0-0.045)
--- NOTE | 2025-06-09 14:24 | PC.NURSE ---
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
--- NOTE | 2025-06-09 15:04 | ESPR_ITS ---
<Statement entered by Judit Stark MD - 06/11/25 09:33> Patient was seen and examined at bedside. I agree on the assessment and plan on this note as documented by resident Nuha Rao DO PGY1. 69-year-old male with past medical history as below admitted for fluid overload was found to be COVID-positive does have possible superimposed bacterial pneumonia consistent with chest x-ray findings, transitioned off of BiPAP to nasal cannula currently requiring supplemental oxygen around 4 to 5 L. We will start remdesivir and Decadron for COVID management, continue Rocephin and azithromycin, continue BiPAP at bedtime, will continue dialysis per nephrology recommendations. Will resume antihypertensive as tolerated. Patient had code star in the ED earlier this morning status post fall reported right leg pain x- rays showed no fracture/dislocation. Will continue strict bedrest for now, disposition telemetry for management of acute hypoxic respiratory failure due to multifactorial etiology. Case discussed with attending Dr. Rosalie Stark MD PGY-2 Documentation for date of: 06/09/25 Subjective Subjective Interval history: Patient was admitted overnight. Seen and examined in dialysis with BiPAP on. Is COVID-positive. Patient reports that on Saturday/Saturday he started feeling sick with runny nose and congestion, causing him to miss his Saturday dialysis session. Patient reports normally being adherent to dialysis which he obtains through left AV fistula created 2 years ago. Follows November outpatient. However last night patient's shortness of breath worsened, prompting ED visit. Here in the hospital, patient sustained a ground-level fall with no loss of consciousness or head strike while trying to get on the commode. Patient states that he feels much better since admission, denies oxygen use at home or CPAP. Patient denies any cardiac history including heart failure or CAD. Patient is due for urgent hemodialysis today. Continue BiPAP, consider weaning off as O2 saturation tolerates. Start remdesivir and decadron. Continue airborne precaution while BiPAP is in place. Continue Rocephin 1 g IV daily and azithromycin 500 mg IV daily. Follow-up blood cultures, troponins, VBG and EKG Exam Vital Signs Temp Pulse Resp BP Pulse Ox O2 Del Method O2 Flow Rate 96.9 F 74 20 152/99 H 100 BiPAP 12 06/09/25 13:09 06/09/25 14:20 06/09/25 14:20 06/09/25 14:20 06/09/25 14:20 06/09/25 14:20 06/09/25 14:20 FiO2 40 06/09/25 14:20 Narrative Exam GENERAL: AOx3, no acute distress HEENT: NC/AT, mucous membranes moist, bilateral sclera anicteric CARDIOVASCULAR: Could not appreciate due to BiPAP machine PULMONARY: Could not appreciate due to BiPAP machine ABDOMINAL: soft, non-tender, non-distended, no rebound/guarding, bowel sounds present EXTREMITIES: no peripheral edema, + L AV fistula thrill palpable and patent SKIN: warm and dry, intact, no rashes NEURO: CN II-XII grossly intact, no focal deficits, alert, following commands Objective Labs 06/10/25 04:20 06/10/25 04:20 Labs: Laboratory Results - last 24 hr 06/09/25 06/09/25 06/09/25 02:17 02:17 02:18 WBC 16.1 H RBC 4.09 L Hgb 13.0 L Hct 39.0 L MCV 95 MCH 31.8 MCHC 33.3 RDW Std Deviation 50.3 H Plt Count 202 Neut % (Auto) 58 Lymph % (Auto) 35 [place] % (Auto) 6 Eos % (Auto) 0 Baso % (Auto) 1 Neut # (Auto) 9.3 H Lymph # (Auto) 5.6 H [place] # (Auto) 1.0 H Eos # (Auto) 0.0 Baso # (Auto) 0.1 Immature Gran # (Auto) 0.08 H Absolute Nucleated RBC 0.00 Immature Gran % 1 H Nucleated RBC % 0 ESR 35 H D-Dimer 491 Puncture Site Right Radial ABG pH 7.11 L* ABG pCO2 40 ABG pO2 158 H ABG HCO3 13 L ABG O2 Saturation 99 H ABG Base Excess -16 L FiO2 50 Sodium 131 L Potassium 4.6 Chloride 97 L Carbon Dioxide 15.1 L Anion Gap 19 H BUN 63 H Creatinine 10.8 H* Estim Creat Clear Calc 6.4 L eGFR 5 L* BUN/Creatinine Ratio 6 L Glucose 173 H Calculated Osmolality 284 Lactic Acid 3.6 H Calcium 9.6 Corrected Calcium 9.6 Phosphorus Magnesium 2.4 Total Bilirubin 0.3 Direct Bilirubin 0.1 AST 28 ALT 12 Alkaline Phosphatase 112 Troponin I 0.165 H* C-Reactive Prot, Quant 7.3 H B-Natriuretic Peptide > 3280 H* Total Protein 7.4 Albumin 4.5 Globulin 2.9 Albumin/Globulin Ratio 1.6 Procalcitonin Not Performed. 0.45 TSH 1.76 Ur Collection Type Urine Color Urine Clarity Urine pH Ur Specific [place] Urine Protein Urine Glucose (UA) Urine Ketones Urine Blood Urine Nitrite Urine Bilirubin Urine Urobilinogen (Auto) Ur Leukocyte Esterase Urine RBC Urine WBC Ur Squamous Epith Cells Urine Bacteria Hyaline Casts Ur Culture Indicated? 06/09/25 06/09/25 06/09/25 02:20 04:43 05:35 WBC 15.4 H RBC 3.81 L Hgb 11.9 L Hct 35.5 L MCV 93 MCH 31.2 MCHC 33.5 RDW Std Deviation 48.1 H Plt Count 172 D Neut % (Auto) 92 H Lymph % (Auto) 4 L [place] % (Auto) 4 Eos % (Auto) 0 Baso % (Auto) 0 Neut # (Auto) 14.1 H Lymph # (Auto) 0.6 L [place] # (Auto) 0.6 Eos # (Auto) 0.0 Baso # (Auto) 0.0 Immature Gran # (Auto) 0.10 H Absolute Nucleated RBC 0.00 Immature Gran % 1 H Nucleated RBC % 0 ESR D-Dimer Puncture Site Right Radial ABG pH 7.29 L D ABG pCO2 31 L ABG pO2 118 H D ABG HCO3 15 L ABG O2 Saturation 99 H ABG Base Excess -11 L FiO2 40 Sodium 132 L Potassium 5.9 H D Chloride 97 L Carbon Dioxide 19.1 L Anion Gap 16 BUN 72 H Creatinine 11.3 H* D Estim Creat Clear Calc 6.1 L eGFR 4 L* BUN/Creatinine Ratio 6 L Glucose 155 H Calculated Osmolality 288 Lactic Acid 1.5 Calcium 8.7 Corrected Calcium 8.8 Phosphorus Magnesium 2.3 Total Bilirubin 0.4 Direct Bilirubin AST 227 H ALT 94 H Alkaline Phosphatase 146 H D Troponin I C-Reactive Prot, Quant B-Natriuretic Peptide Total Protein 6.6 Albumin 3.9 D Globulin 2.7 Albumin/Globulin Ratio 1.4 Procalcitonin TSH Ur Collection Type Clean Catch Urine Color Lt-Yellow Urine Clarity Clear Urine pH 7.5 H Ur Specific [place] 1.013 Urine Protein 2+ A Urine Glucose (UA) 2+ A Urine Ketones Negative Urine Blood Negative Urine Nitrite Negative Urine Bilirubin Negative Urine Urobilinogen (Auto) Negative Ur Leukocyte Esterase Negative Urine RBC 4 H Urine WBC 1 Ur Squamous Epith Cells < 1 Urine Bacteria None Hyaline Casts < 1 Ur Culture Indicated? Not Indicated 06/09/25 10:15 WBC RBC Hgb Hct MCV MCH MCHC RDW Std Deviation Plt Count Neut % (Auto) Lymph % (Auto) [place] % (Auto) Eos % (Auto) Baso % (Auto) Neut # (Auto) Lymph # (Auto) [place] # (Auto) Eos # (Auto) Baso # (Auto) Immature Gran # (Auto) Absolute Nucleated RBC Immature Gran % Nucleated RBC % ESR D-Dimer Puncture Site ABG pH ABG pCO2 ABG pO2 ABG HCO3 ABG O2 Saturation ABG Base Excess FiO2 Sodium Potassium Chloride Carbon Dioxide Anion Gap BUN Creatinine Estim Creat Clear Calc eGFR BUN/Creatinine Ratio Glucose Calculated Osmolality Lactic Acid Calcium Corrected Calcium Phosphorus 5.2 H Magnesium Total Bilirubin Direct Bilirubin AST ALT Alkaline Phosphatase Troponin I 0.943 H* D C-Reactive Prot, Quant B-Natriuretic Peptide Total Protein Albumin Globulin Albumin/Globulin Ratio Procalcitonin TSH Ur Collection Type Urine Color Urine Clarity Urine pH Ur Specific [place] Urine Protein Urine Glucose (UA) Urine Ketones Urine Blood Urine Nitrite Urine Bilirubin Urine Urobilinogen (Auto) Ur Leukocyte Esterase Urine RBC Urine WBC Ur Squamous Epith Cells Urine Bacteria Hyaline Casts Ur Culture Indicated? ABG Interpretation ABG results: 06/09/25 06/09/25 02:18 04:43 ABG pH 7.11 L* 7.29 L D ABG pCO2 40 31 L ABG pO2 158 H 118 H D ABG HCO3 13 L 15 L ABG O2 Saturation 99 H 99 H ABG Base Excess -16 L -11 L Quality Measures Quality Measures VTE prophylaxis Advance care planning discussed with:: patient Assessment & Plan Assessment Current Active Medications: Generic Name Dose Route Start Last Admin Trade Name Freq PRN Reason Stop Dose Admin Acetaminophen 650 mg 06/09/25 04:51 Acetaminophen Supp 650 Mg Supp OK 07/09/25 04:50 Q6HR PRN Fever > 100.4 or pain Heparin Sodium (Porcine) 5,000 unit 06/09/25 09:00 06/09/25 09:00 Heparin Sod Inj 5000 Unit/Ml Vial SC 06/23/25 08:59 Not Given Q12HR JEYSON Ceftriaxone Sodium/Dextrose 1 gm in 50 mls @ 100 mls/hr 06/10/25 09:00 Rocephin/D5w 1gm Iv Premix IV 06/17/25 08:59 QDAY JEYSON Azithromycin 500 mg/ Sodium 250 mls @ 250 mls/hr 06/09/25 04:58 06/09/25 10:08 Chloride IV 06/16/25 04:57 Not Given QDAY JEYSON Albumin Human 25 gm in 100 mls @ 100 mls/min 06/09/25 09:08 Albuminar-25 Ivpb IV PRN PRN DIALYSIS Sodium Chloride 3 ml 06/09/25 02:30 Sodium Chloride Rt Phuong 0.9% 3 Ml Nebu INH 07/09/25 02:29 PRN PRN SOLN Plan 69 y/o F with PMHx significant for HTN, ESRD (M/W/F) presented to ED with chief complaint of shortness of breath, admitted for acute hypoxic respiratory failure secondary to fluid overload complicated by COVID infection with possible superimposed bacterial infection. #Acute hypoxic respiratory failure 2/2 #Volume overload due to missed dialysis vs #COVID positive vs #Possible superimposed bacterial pneumonia #Sepsis 2/2 infection vs #NSTEMI likely type I vs II 2/2 volume overload #HAGMA, resolved, multifactorial 2/2 #Lactic acidosis, resolved #ESRD (M/W/F) Presents with shortness of breath x 2 days, with symptoms worsening since missing dialysis session on Saturday. Patient missed session due to feeling of general malaise and runny nose with cough with productive sputum. Patient denies fevers, chills. In ED COVID +, CXR shows vascular congestion. BNP >3200, ABG on admission 7.11 pH, PCO2 40, PO2 158. Patient placed on BiPAP. Repeat ABG showed pH 7.29, pCO2 31, pO2 118. Patient follows with Dr. Narvaez. Troponins uptrending 0.165, 0.943 Received HD 06/09, Plan: - Continue BiPAP, wean off as tolerated - Dr. Narvaez consulted, appreciate recs: HD today - Airborne isolation while BiPAP is in place - Rocephin 1 g IV daily (06/09- ) and Azithromycin 500 mg IV daily (06/09- ) - Start remdesivir and decadron - F/u serial troponins, VBG, BCx, EKG #HTN #Hypertensive urgency Patient history as stated. Blood pressure on arrival 193/150. Patient denies chest pain, headache, blurry vision. Patient symptoms most likely due to missed dialysis session, complicated by infection. Patient received metoprolol to tartrate in the ED, blood pressure decreased to 117/80. Plan: - Holding patient's home antihypertensive medication in setting of rapid decrease in blood pressure - Monitor blood pressure closely - Plan to restart antihypertensivevs once condition stabilizes, starting with clonidine 0.1 mg BID #Mechanical fall 06/09 Patient sustained mechanical fall in the ED on R side as he was trying to get onto the commode. No loss of consciousness or head strike. Femur x-ray shows no acute fracture. Hip x-ray limited study no acute right hip fracture noted. Knee x-ray no fracture or dislocation. Plan: - CTM for increased pain and vitals - PT ordered Hospital management: Lines: PIV, [place] Diet: Renal Bowel: None GI prophylaxis: None DVT prophylaxis: heparin q12 Disposition: tele for management of AHRF and abx CODE STATUS: Full code Plan of care discussed with attending Dr. Adan, and PGY-2 Dr. Stark. Nuha Rao, DO PGY-1 Internal Medicine Attending Provider Attestation/Addendum I attest that I was physically present for the evaluation, physical examination, lab and imaging review of the patient with the residents. I discussed the case with the residents and agree with the findings and plans of care as documented above. Leda Adan MD
[2025-06-09 16:22] LABS: Base Excess, Venous 1 (-3-3); O2 Saturation, Venous 97 % (96-97); PCO2, Venous 34 mmHg (36-56); PO2, Venous 81 mmHg (15-58); pH, Venous 7.46 (7.33-7.66)
[2025-06-09] MEDS: REMDESIVIR INJ 200 MG in SODIUM CHLORIDE 0.9% 250 ML 250 ML 250 MG IV (16:25)
[2025-06-09] MEDS: DEXAMETHASONE SOD PHOS INJ 10 MG/ML VIAL 6 MG IV (16:26)
[2025-06-09 17:32] LABS: Troponin I 1.657 ng/mL (0.0-0.045)
[2025-06-09] MEDS: HEPARIN SOD INJ 5000 UNIT/ML VIAL SC (20:32)
--- NOTE | 2025-06-09 20:38 | PD.RESCONSUL ---
HPI Data of Consult Requesting Physician: Ezequiel Juarez MD Admitting Provider: Ezequiel Juarez MD Attending Provider: Ezequiel Juarez MD Primary Care Provider: Nelson Narvaez MD Consult Narrative History of present illness: History of present illness: 69 y/o M with PMHx significant for HTN, ESRD (M/W/F) presented to ED with chief complaint of shortness of breath. Pt had been feeling sick with runny nose, congestion, and malaise during the past weekend and did not make it his dialysis session on Saturday as a result. Patient also developed a productive cough. Patient was admitted for fluid overload in February 2025 and treated with inpatient dialysis. He receives hemodialysis through a Lt AV fistula created 2y ago She follows with Dr. Narvaez. Patient denies fever, chills, chest pain, nausea, vomiting, abdominal pain. Patient denies any cardiac history including heart failure or CAD. Patient states that he feels much better since admission, denies oxygen use at home or CPAP. Patient was placed on BiPAP and received urgent hemodialysis today. He is COVID positive and is placed in airbore precautions. Treated empirically with Rocephin 1 g IV daily and azithromycin 500 mg IV daily Troponin I .165 initially, .943, and 1.657 trending up AST 227 (28), ALT 94 (12), ALP 146 (112). BP 144/91, HR 72, RR 16, T96.9F, O2 100 on 4L NC ED COURSE: Labs significant for: WBC 16.1, serum bicarb 15.1, lactic acid 3.6. Troponin 0.165, BNP greater than 3200, CRP 7.3, ESR 35, Pro-Forrest negative. ABG showed pH 7.11, PCO2 40, PO2 185. COVID test positive. Imaging significant for: Chest x-ray showing vascular congestion. Patient started on BiPAP for acute hypoxic respiratory failure in the setting of fluid overload, with acidosis. Patient received metoprolol, nitro, morphine, methylprednisolone, bicarb, 1 g Tylenol, cefepime, vanc, DuoNebs while in the ED. PMH: HTN, ESRD PSH: Cholecystectomy SH: 10 pack-year smoking history. Denies alcohol use. Occasional marijuana use. Allergies:?No known drug allergies Medications: Med rec's pending cc:: cc: Ezequiel Juarez MD Exam Vital Signs Temp Pulse Resp BP Pulse Ox O2 Del Method O2 Flow Rate 96.8 F 70 20 144/94 H 95 BiPAP 4 06/09/25 16:00 06/09/25 17:45 06/09/25 17:45 06/09/25 16:00 06/09/25 17:45 06/09/25 16:00 06/09/25 17:45 FiO2 40 06/09/25 16:00 Narrative Exam General: Alert and oriented x3, No apparent distress. Skin: Intact, Warm, no rashes. HEENT: Normocephalic, Atraumatic. Normal neck range of motion, Supple. Trachea midline. Respiratory: Lungs are clear to auscultation, Breath sounds are equal bilaterally with equal chest expansion. Cardiovascular: RRR, normal S1, S2, No murmurs. Distal pulses 2+ Abdomen: Abdomen soft, non-distended, without erythema, or lesions. Normotensive bowel sounds x4. Percussion tympanic. Palpation nontender in all four quadrants. No organomagely. No guarding or rebound present. Musculoskeletal/Extremities: No erythema, swelling, tenderness of any joints. No edema of BLE. DP pulses +2/3 b/l. Full active ROM of all four extremities. Palpable Lt AV fistula thrill. Neurologic: NEURO: Oriented x3, cranial nerves II to XII grossly intact. Cerebellar exam (betkgm-rg-tyef, nbsu-to-uegi) intact. Muscle strength 5/5 on UE and LE b/l, Moves extremities x4. Sensation intact to gross touch along C6-T1 and L2-S1 dermatomes. No focal neurologic deficits noted Psych: Thoughts linear and responses appropriate. Results Labs 06/11/25 05:48 06/11/25 05:48 Labs: Short CBC 06/09/25 06/09/25 Range/Units 02:17 05:35 WBC 16.1 H 15.4 H (3.8-10.6) Thou/mm3 Hgb 13.0 L 11.9 L (13.5-16.0) g/dL Hct 39.0 L 35.5 L (41.0-53.0) % Plt Count 202 172 D (140-440) Thou/mm3 BMP 06/09/25 06/09/25 02:17 05:35 Sodium 131 L 132 L Potassium 4.6 5.9 H D Chloride 97 L 97 L Carbon Dioxide 15.1 L 19.1 L BUN 63 H 72 H Creatinine 10.8 H* 11.3 H* D Glucose 173 H 155 H Calcium 9.6 8.7 Cardiac Enzymes 06/09/25 06/09/25 06/09/25 Range/Units 02:17 10:15 16:06 Troponin I 0.165 H* 0.943 H* D 1.657 H* D (0.0-0.045) ng/mL Liver Function 06/09/25 06/09/25 Range/Units 02:17 05:35 Total Bilirubin 0.3 0.4 (0.3-1.2) mg/dL Direct Bilirubin 0.1 (0.0-0.3) mg/dL AST 28 227 H (0-34) U/L ALT 12 94 H (10-49) U/L Alkaline Phosphatase 112 146 H D (46-116) U/L Albumin 4.5 3.9 D (3.4-4.8) gm/dL Urine 06/09/25 Range/Units 02:20 Urine Color Lt-Yellow (Lt Yel-Yel) Urine Clarity Clear (Clear/Hazy) Urine pH 7.5 H (5.0-7.0) Ur Specific [place] 1.013 (1.001-1.035) Urine Protein 2+ A (Neg - Trace) Urine Glucose (UA) 2+ A (Negative) ABG Interpretation ABG results: 06/09/25 06/09/25 06/09/25 02:18 04:43 16:06 ABG pH 7.11 L* 7.29 L D ABG pCO2 40 31 L ABG pO2 158 H 118 H D ABG HCO3 13 L 15 L ABG O2 Saturation 99 H 99 H ABG Base Excess -16 L -11 L VBG pH 7.46 VBG pCO2 34 L VBG pO2 81 H VBG Base Excess 1 Quality Measures Quality Measures VTE prophylaxis Advance care planning discussed with:: patient Medications Home Medications and Allergies Home Medications ?Medication ?Instructions ?Recorded ?Confirmed ?Type calcitriol 0.25 mcg capsule 0.25 mcg PO TID 06/03/23 06/10/25 History ergocalciferol (vitamin D2) 1,250 50,000 unit PO DAILY 06/03/23 06/10/25 History mcg (50,000 unit) capsule hydralazine 50 mg tablet 50 mg PO TID 06/03/23 06/10/25 History Held on 06/11/25. Instructions: Resume on 06/25/25. Please discuss with your PCP or Workplace Relations Adviser before resuming sodium bicarbonate 650 mg tablet 650 mg PO BID 06/03/23 06/10/25 History clonidine HCl 0.1 mg tablet 0.1 mg PO BID 06/05/23 06/10/25 History Held on 06/11/25. Instructions: Resume on 06/25/25. Please discuss with your PCP/Workplace Relations Adviser before resuming valsartan 80 mg tablet 80 mg PO QDAY 10/09/23 06/10/25 History cinacalcet 30 mg tablet 30 mg PO TID 03/16/25 06/10/25 History Allergies Allergy/AdvReac Type Severity Reaction Status Date / Time No Known Allergies Allergy Verified 06/09/25 01:48 Visit Medications Acetaminophen (Acetaminophen Supp 650 Mg Supp) 650 mg [place] Q6HR PRN PRN Reason: Fever > 100.4 or pain Stop: 07/09/25 04:50 Dexamethasone Sodium Phosphate (Dexamethasone Sod Phos Inj 10 Mg/Ml Vial) 6 mg IV QDAY [facility] Stop: 06/18/25 09:01 Last Admin: 06/09/25 16:26 Dose: 6 mg Heparin Sodium (Porcine) (Heparin Sod Inj 5000 Unit/Ml Vial) 5,000 unit SC Q12HR [facility] Stop: 06/23/25 08:59 Last Admin: 06/09/25 09:00 Dose: Not Given Ceftriaxone Sodium/Dextrose (Rocephin/D5w 1gm Iv Premix) 1 gm in 50 mls @ 100 mls/hr IV QDAY [facility] Stop: 06/17/25 08:59 Azithromycin 500 mg/ Sodium (Chloride) 250 mls @ 250 mls/hr IV QDAY [facility] Stop: 06/16/25 04:57 Last Admin: 06/09/25 10:08 Dose: Not Given Albumin Human (Albuminar-25 Ivpb) 25 gm in 100 mls @ 100 mls/min IV PRN PRN PRN Reason: DIALYSIS Remdesivir 100 mg/ Sodium (Chloride) 100 mls @ 100 mls/hr IV QDAY@1400 [facility] Stop: 06/13/25 14:59 Sodium Chloride (Sodium Chloride Rt Phuong 0.9% 3 Ml Nebu) 3 ml INH PRN PRN PRN Reason: SOLN Stop: 07/09/25 02:29 Discontinued Medications Furosemide (Furosemide Inj 10 Mg/Ml 4ml Vial) 80 mg IVP X1 ONE Stop: 06/09/25 02:00 Last Admin: 06/09/25 02:12 Dose: 80 mg Glucagon (Glucagon Inj 1 Mg Vial) 1 mg IVP X1 ONE Stop: 06/09/25 02:31 Last Admin: 06/09/25 02:50 Dose: 1 mg Cefepime HCl 1 gm/ Sodium (Chloride) 50 mls @ 100 mls/hr IV X1 ONE Stop: 06/09/25 02:59 Last Infusion: 06/09/25 03:52 Dose: Infused Vancomycin HCl 1,000 mg/ (Sodium Chloride) 500 mls @ 150 mls/hr IV X1 ONE Stop: 06/09/25 05:49 Last Infusion: 06/09/25 06:54 Dose: Infused Acetaminophen (Ofirmev Inj) 1,000 mg in 100 mls @ 250 mls/hr IV X1 ONE Stop: 06/09/25 02:53 Last Infusion: 06/09/25 03:11 Dose: Infused Ceftriaxone Sodium/Dextrose (Rocephin/D5w 1gm Iv Premix) 1 gm in 50 mls @ 100 mls/hr IV X1 ONE Stop: 06/09/25 05:44 Last Infusion: 06/09/25 06:04 Dose: Infused Remdesivir 200 mg/ Sodium (Chloride) 250 mls @ 250 mls/hr IV X1 ONE Stop: 06/09/25 16:44 Last Admin: 06/09/25 16:25 Dose: 250 mls/hr Ketorolac Tromethamine (Ketorolac Inj 30 Mg/Ml Vial) 30 mg IVP X1 ONE Stop: 06/09/25 02:31 Last Admin: 06/09/25 02:45 Dose: 30 mg Levalbuterol HCl (Levalbuterol Rt 1.25 Mg/0.5 Ml Nebu) 5 mg INH X1 ONE Stop: 06/09/25 02:31 Last Admin: 06/09/25 03:32 Dose: 5 mg Methylprednisolone Sodium Succinate (Methylprednisolone Sod Succ 62.5 Mg/Ml 2ml Vial) 125 mg IVP X1 ONE Stop: 06/09/25 02:14 Last Admin: 06/09/25 02:46 Dose: 125 mg Metoprolol Tartrate (Metoprolol Tartrate 25 Mg Tablet) 50 mg PO X1 ONE Stop: 06/09/25 01:59 Last Admin: 06/09/25 02:09 Dose: 50 mg Metoprolol Tartrate (Metoprolol Tartrate Inj 1 Mg/Ml Amp 5 Ml) 5 mg IVP X1 ONE Stop: 06/09/25 02:25 Last Admin: 06/09/25 02:45 Dose: 5 mg Morphine Sulfate (Morphine Sulf Inj 10 Mg/Ml Vial) 4 mg IVP X1 ONE Stop: 06/09/25 02:00 Last Admin: 06/09/25 02:11 Dose: 4 mg Nitroglycerin (Nitroglycerin Oint 2% 1 Inch Packet) 2 inch TOP X1 ONE Stop: 06/09/25 02:00 Last Admin: 06/09/25 02:11 Dose: 2 inch Sodium Bicarbonate (Sodium Bicarb Inj 8.4% Syr 50 Ml Syringe) 50 ml IV X1 ONE Stop: 06/09/25 02:30 Last Admin: 06/09/25 02:47 Dose: 50 ml Sodium Bicarbonate (Sodium Bicarb Inj 8.4% 1 Meq/Ml 50 Ml Vial) 50 meq IV X1 ONE Stop: 06/09/25 04:31 Last Admin: 06/09/25 05:08 Dose: 50 meq Assessment & Plan Plan 69 y/o M with PMHx significant for HTN, ESRD (M/W/F) presented to ED with chief complaint of shortness of breath 69 y/o F. Pt was admitted for acute hypoxic respiratory failure secondary to fluid overload. He has a confirmed infection with COVID with possible superimposed bacterial infection. In ED patient was positive for COVID, CXR shows vascular congestion, O2 sat 85, BNP >3280, ABG on admission pH 7.11, PCO2 40, PO2 158. Patient placed on BiPAP. Repeat ABG showed pH 7.29, pCO2 31, pO2 118. Pt is started on empiric treatment with Rocephin 1 g IV daily (06/09- ) and Azithromycin 500 mg IV daily ( ) Cardiology is being consulted for evaluation of uptrending troponins 0.165, 0.943, 1.675 EKG showed NSR with QT interval prolongation (QTc 492) Problems: #NSTEMI #Transminitis #Hepatomegaly, likely fatty liver disease vs cirrhosis #ESRD (M/W/F) #60 mm lower poleleft renal mass #Lateral left renal mass 12 mm with calcification #Abdominal aortic aneurysm #Colonic Diverticulosis #Acute hypoxic respiratory failure #Volume overload due to missed dialysis #COVID positive #Possible superimposed bacterial pneumonia #Sepsis 2/2 infection #HTN #Hypertensive urgency NSTEMI more likely to be type ii in the context of initial reflexive tachycardia, but also abrupt drop in BP from 193/150 to <110/80, hypoxemia. Hgb 11.9 and close to baseline. Troponinemia is expected in the setting of CKD, as the patient is unable to clear troponins from blood, and it accumulates as a result. Transminitis likely to be secondary to hypotension vs RV failure and congestive hepatomegaly pending TTE. In agreement with holding home antihypertensive meds in the setting of acute drop in BP close to 50% when compared to presenting values. Recommend trending troponins serially Q6h and keeping the patient on cardiac telemetry. Consider treatment for type I NSTEMI with bolus heparin 60u/kg (max 4000u) followed by IV 12u/kg/h, aspirin 162-325mg, metoprolol 25-50mg PO Q6h titrate slowly to HR 50-60, and atorvastatin 80mg, and ACEi/ARB if troponins keep elevating, patient reports chest pain, and/or EKG ST/T changes are present. Recommend stat TTE for assessment of cardiac wall motion, and heart function/CO. Recommend keeping Mg >2 and K+ >4 at all times. Thank you for cardiology consultation. We appreciate the opportunity to participate in this patient's care. Will continue to follow-up on this patient This case was discussed with my attending physician, Dr. Welsh, surgical dressing maker. Jeanette Ferro DO PGY I Attending Provider Attestation/Addendum I have personally seen and examined the patient separately on the above date of service and discussed the plan of care with the resident. I reviewed the resident Dr. Reid consultation progress note and agree with the resident findings and plan in the note above and have also edited the documentation to reflect my findings and plan. Hugh Welsh M.D. Interventional Cardiology
[2025-06-09 23:02] LABS: Troponin I 1.953 ng/mL (0.0-0.045)
[2025-06-10] VITALS (9 sets, daily range): BP systolic 121–139; BP diastolic 83–92; PULSE 59–88; RESP 13–98; TEMP 35.9–37; O2SAT 90–100; BMI 25.3
[2025-06-10 06:00] LABS: Basophils # (Auto) 0.0 Thou/mm3 (0.0-0.2); Basophils % (Auto) 0 % (0-2.5); Eosinophils # (Auto) 0.0 Thou/mm3 (0.0-0.5); Eosinophils % (Auto) 0 % (0-10); Hematocrit 34.1 % (41.0-53.0); Hemoglobin 11.7 g/dL (13.5-16.0); Immature Granulocytes Auto 0.07 Thou/mm3 (0.00-0.00); Lymphocytes # (Auto) 1.2 Thou/mm3 (1.0-4.8); Lymphocytes % (Auto) 10 % (10-50); Mean Corpuscular HGB Conc 34.3 g/dl (31.0-37.0); Mean Corpuscular Hemoglobin 31.2 pg (25.0-35.0); Mean Corpuscular Volume 91 fL (80-100); Monocytes # (Auto) 0.5 Thou/mm3 (0.0-0.8); Monocytes % (Auto) 4 % (0-12); Neutrophils # (Auto) 10.5 Thou/mm3 (1.8-7.7); Neutrophils % (Auto) 85 % (37-80); Nucleated Red Blood Cell # 0.00 Thou/mm3 (0.00-0.00); Nucleated Red Blood Cell % 0 /100 WBC (0); Platelet Count 197 Thou/mm3 (140-440); RDW Standard Deviation 47.1 fL (35.1-43.9); Red Blood Count 3.75 Miln/mm3 (4.50-5.90); White Blood Count 12.4 Thou/mm3 (3.8-10.6)
[2025-06-10 06:40] LABS: Alanine Aminotransferase 332 U/L (10-49); Albumin, Serum 3.7 gm/dL (3.4-4.8); Albumin/Globulin Ratio 1.4 (1.2-2.2); Alkaline Phosphatase 244 U/L (46-116); Anion Gap 16 (7-16); Aspartate Amino Transferase 465 U/L (0-34); BUN/Creatinine Ratio 7 Ratio (12-20); Bilirubin,Total 0.3 mg/dL (0.3-1.2); Blood Urea Nitrogen 59 mg/dL (9-23); Calcium 9.2 mg/dL (8.3-10.6); Calcium (Corrected) 9.4 mg/dL (8.5-10.1); Carbon Dioxide 25.6 mMol/L (20.0-31.0); Chloride 95 mMol/L (98-107); Creatinine (Component) 8.7 mg/dL (0.6-1.3); Estimated Creatinine Clearance 8.0 mL/min (>60); Globulin 2.6 gm/dL (2.3-3.5); Glucose 110 mg/dL (74-106); Magnesium 1.8 mg/dL (1.6-2.6); Osmolality,Calculated 291 (275-295); Potassium 4.5 mMol/L (3.4-5.1); Sodium 137 mMol/L (136-145); Total Protein 6.3 gm/dL (5.7-8.2); eGFR 6 See Note
[2025-06-10 06:41] LABS: Troponin I 1.775 ng/mL (0.0-0.045)
[2025-06-10 06:44] LABS: Phosphorous 9.3 mg/dL (2.4-5.1)
[2025-06-10] MEDS: cefTRIAXone/D5w 1gm IV premix 1 GM/50 ML BAG IV (08:46)
[2025-06-10] MEDS: DEXAMETHASONE SOD PHOS INJ 10 MG/ML VIAL 6 MG IV (08:46)
[2025-06-10] MEDS: HEPARIN SOD INJ 5000 UNIT/ML VIAL SC ×2 (08:47→21:09)
--- NOTE | 2025-06-10 08:56 | ESPR_ITS ---
Documentation for date of: 06/10/25 Subjective Subjective Interval history: Maria G Burnett is a 69 y/o gentleman with PMHx significant for HTN, ESRD (M/W/F) presented to ED with chief complaint of shortness of breath. He states that his symptoms of SOB got worse after he missed his HD session. He reports that he attends his HD regularly, however on saturday he could not attend because he felt ill, having fever, chills, general fatigue and runny nose. He endorses a productive cough with green phlem for the past 3 days. 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 In 02/2025, pt was admitted for a similar presentation requiring inpatient HD for volume overload. 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 ROS Endorses fever, chills, productive cough, fatigue, rhinorrhea, he denies, chest pain, abdominal pain, nausea, vomiting, diarrhea, constipation ED COURSE: Labs significant for: WBC 16.1, serum bicarb 15.1, lactic acid 3.6. Troponin 0.165, BNP greater than 3200, CRP 7.3, ESR 35, Pro-Forrest negative. ABG showed pH 7.11, PCO2 40, PO2 185. COVID test positive. Imaging significant for: Chest x-ray showing vascular congestion. Patient started on BiPAP for acute hypoxic respiratory failure in the setting of fluid overload, with acidosis. Patient received metoprolol, nitro, morphine, methylprednisolone, bicarb, 1 g Tylenol, cefepime, vanc, DuoNebs while in the ED. PMH: HTN, ESRD PSH: Cholecystectomy SH: 10 pack-year smoking history. Denies alcohol use. 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 Allergies:?No known drug allergies 06/09/2025: Patient admitted, Nephrology consulted for urgent HD, Pt seen and examined in HD. Pt is alert and awake, wearing BiPAP. He states that he was feeling short of breath, no chest pain. on exam he has congestion in the upper lung fileds (difficult to appreciate lung sounds while Bipap machine on). 06/10/2025: Patient seen and examined at bedside. Patient remains on contact precautions given COVID-positive. Patient has alert and awake sitting upright in the bed no BiPAP. Patient denies feeling short of breath, no chest pain. On exam he continues to have bilateral ronchi and congestion. Patient states that his son's wedding is on which she had initially hoped to attend. Per discussion with primary team they are holding nontender here in setting of transaminitis however given patient is vaccinated plan to initiate treatment for COVID. Patient will continue to receive hemodialysis per his regular schedule Saturday, no HD today. Exam Vital Signs Temp Pulse Resp BP Pulse Ox O2 Del Method O2 Flow Rate 97.0 F 74 18 138/92 H 90 L Nasal Cannula 5 06/10/25 08:00 06/10/25 08:00 06/10/25 08:00 06/10/25 08:00 06/10/25 08:00 06/10/25 08:00 06/10/25 08:00 FiO2 40 06/10/25 08:00 Narrative Exam GENERAL: no acute distress, AAO x3, comfortably laying in bed. HEENT: Head AT/ NC. Mucous membranes moist. NECK: Supple, no lymphadenopathy, no carotid bruits. CARDIOVASCULAR: RRR. Normal S1/S2, No m/r/g. edema of bilateral LEs. RESPIRATORY: bilateral crackles on auscultation of mid lung rashid, on 5L NC, off Bipap GASTROINTESTINAL: Abdomen soft, non tender no palpable masses. Bowel sounds present MUSCULOSKELETAL:? No cyanosis or edema, no visible joint swelling. NEUROLOGICAL: CN II-XII grossly intact. No focal deficits. Sensation intact, symmetric. PSYCHIATRIC: Awake and alert, not agitated, normal mood and affect. SKIN: No obvious rashes, no jaundice, normal turgor. Objective Labs 06/10/25 04:20 06/10/25 04:20 Labs: Laboratory Results - last 24 hr 06/09/25 06/09/25 06/09/25 10:15 16:06 22:26 WBC RBC Hgb Hct MCV MCH MCHC RDW Std Deviation Plt Count Neut % (Auto) Lymph % (Auto) [place] % (Auto) Eos % (Auto) Baso % (Auto) Neut # (Auto) Lymph # (Auto) [place] # (Auto) Eos # (Auto) Baso # (Auto) Immature Gran # (Auto) Absolute Nucleated RBC Immature Gran % Nucleated RBC % VBG pH 7.46 VBG pCO2 34 L VBG pO2 81 H VBG O2 Sat (Janene) 97 VBG Base Excess 1 Sodium Potassium Chloride Carbon Dioxide Anion Gap BUN Creatinine Estim Creat Clear Calc eGFR BUN/Creatinine Ratio Glucose Calculated Osmolality Calcium Corrected Calcium Phosphorus 5.2 H Magnesium Total Bilirubin AST ALT Alkaline Phosphatase Troponin I 0.943 H* D 1.657 H* D 1.953 H* D Total Protein Albumin Globulin Albumin/Globulin Ratio 06/10/25 04:20 WBC 12.4 H RBC 3.75 L Hgb 11.7 L Hct 34.1 L MCV 91 MCH 31.2 MCHC 34.3 RDW Std Deviation 47.1 H Plt Count 197 Neut % (Auto) 85 H Lymph % (Auto) 10 [place] % (Auto) 4 Eos % (Auto) 0 Baso % (Auto) 0 Neut # (Auto) 10.5 H Lymph # (Auto) 1.2 [place] # (Auto) 0.5 Eos # (Auto) 0.0 Baso # (Auto) 0.0 Immature Gran # (Auto) 0.07 H Absolute Nucleated RBC 0.00 Immature Gran % 1 H Nucleated RBC % 0 VBG pH VBG pCO2 VBG pO2 VBG O2 Sat (Janene) VBG Base Excess Sodium 137 Potassium 4.5 D Chloride 95 L Carbon Dioxide 25.6 Anion Gap 16 BUN 59 H Creatinine 8.7 H* D Estim Creat Clear Calc 8.0 L eGFR 6 L* BUN/Creatinine Ratio 7 L Glucose 110 H Calculated Osmolality 291 Calcium 9.2 Corrected Calcium 9.4 Phosphorus 9.3 H Magnesium 1.8 Total Bilirubin 0.3 AST 465 H ALT 332 H Alkaline Phosphatase 244 H D Troponin I 1.775 H* Total Protein 6.3 Albumin 3.7 Globulin 2.6 Albumin/Globulin Ratio 1.4 ABG Interpretation ABG results: 06/09/25 06/09/25 06/09/25 02:18 04:43 16:06 ABG pH 7.11 L* 7.29 L D ABG pCO2 40 31 L ABG pO2 158 H 118 H D ABG HCO3 13 L 15 L ABG O2 Saturation 99 H 99 H ABG Base Excess -16 L -11 L VBG pH 7.46 VBG pCO2 34 L VBG pO2 81 H VBG Base Excess 1 Quality Measures Quality Measures VTE prophylaxis Advance care planning discussed with:: patient Assessment & Plan Assessment Current Active Medications: Generic Name Dose Route Start Last Admin Trade Name Freq PRN Reason Stop Dose Admin Acetaminophen 650 mg 06/09/25 04:51 Acetaminophen Supp 650 Mg Supp MO 07/09/25 04:50 Q6HR PRN Fever > 100.4 or pain Albuterol/Ipratropium 3 ml 06/10/25 13:00 Albuterol/Ipratropium (Duoneb) Rt Phuong 3 Ml Nebu INH 07/10/25 12:59 Q6HRRT [facility] Dexamethasone Sodium Phosphate 6 mg 06/09/25 15:30 06/10/25 08:46 Dexamethasone Sod Phos Inj 10 Mg/Ml Vial IV 06/18/25 09:01 6 mg QDAY [facility] Administration Heparin Sodium (Porcine) 5,000 unit 06/09/25 09:00 06/10/25 08:47 Heparin Sod Inj 5000 Unit/Ml Vial SC 06/23/25 08:59 5,000 unit Q12HR [facility] Administration Ceftriaxone Sodium/Dextrose 1 gm in 50 mls @ 100 mls/hr 06/10/25 09:00 06/10/25 08:46 Rocephin/D5w 1gm Iv Premix IV 06/17/25 08:59 100 mls/hr QDAY [facility] Administration Azithromycin 500 mg/ Sodium 250 mls @ 250 mls/hr 06/09/25 04:58 06/09/25 10:08 Chloride IV 06/16/25 04:57 Not Given QDAY [facility] Albumin Human 25 gm in 100 mls @ 100 mls/min 06/09/25 09:08 Albuminar-25 Ivpb IV PRN PRN DIALYSIS Remdesivir 100 mg/ Sodium 100 mls @ 100 mls/hr 06/10/25 14:00 Chloride IV QDAY@1400 [facility] Sevelamer Carbonate 800 mg 06/10/25 12:00 Sevelamer Carbonate 800 Mg Tablet PO 07/10/25 11:59 TIDWM [facility] Sodium Chloride 3 ml 06/09/25 02:30 Sodium Chloride Rt Phuong 0.9% 3 Ml Nebu INH 07/09/25 02:29 PRN PRN SOLN Plan 69 y/o F with PMHx significant for HTN, ESRD (M/W/F) presented to ED with chief complaint of shortness of breath, admitted for acute hypoxic respiratory failure secondary to fluid overload complicated by COVID infection with possible superimposed bacterial infection. pt remains volume overloaded, however improved, now on 5L NC with nl work of breathing, plan for HD per regular schedule. HD tomorrow #Acute hypoxic respiratory failure secondary to-- improving on NC #Fluid overload due to missed dialysis-resolving #ESRD (M/W/F)- followed by Dr. Narvaez #electrolyte abnormalities #hyperkalemia - resolved #hyperphosphatemia #nonnephrotic range proteinuria pt presented to the ED with Shortness of breath for the past 2 days. worsening in setting of missed HD session on saturday. pt missed in setting of #COVID illness (symptomatic with fatigue, malaise, and rhinorrhea, and shortness of breath) hyperkalemia likely 2/2 missed HD, will likely correct with HD On 06/09 K 5.9, BUN 72, Cr 11.3, Abg 7.29, HCO3 15 UA with 2+ protein, 2+ glucose On 06/10 K 4.5, BUN 59, Cr 8.7, no longer requiring bipap, on 5L NC. HD: 06/09 Plan - HD tomorrow per schedule (will give albumin with hd) - CMP daily - CTM volume status - Avoid nephrotoxic medications #COVID infection #Possible superimposed bacterial pneumonia #leukocytosis downtrending #HTN #Hypertensive urgency- resolved Blood pressure on arrival 193/150. Patient denies chest pain, headache, blurry vision likely hypertensive in setting of missed HD session. On 06/10 SBP is more normotensive, 120s - 130s #trop elevation- peaked at 1.953 #transaminitis- hepatocellular pattern - worsening -management per primary team Plan discussed with nephrology attending Dr. Solange Carey MD Internal Medicine PGY-1 Attending Provider Attestation/Addendum Patient seen and examined with resident physician Dr. Carey. Note reviewed, agree with findings and recommendations. Admitted with high fevers, acute hypoxic respiratory failure secondary to COVID- pneumonia. Did miss dialysis session Saturday. Potassium seems to be elevated. Labs reviewed. Patient in respiratory isolation. Patient did receive dialysis yesterday. Feeling better. next dialysis scheduled for tomorrow.
--- NOTE | 2025-06-10 09:40 | ESPR_ITS ---
<Statement entered by Judit Stark MD - 06/11/25 10:39> Patient was seen and examined at bedside. I agree on the assessment and plan on this note as documented by resident Nuha Rao DO PGY1. 69-year-old male with past medical history as below admitted for acute hypoxic respiratory failure secondary to multifactorial etiology: Volume overload, COVID-pneumonia, superimposed bacterial pneumonia. Noted to have elevated AST ALT worsening from yesterday, will obtain liver ultrasound, will stop remdesivir, currently patient's oxygen requirement has improved significantly. Will continue ceftriaxone and azithromycin for management of pneumonia, per nephrology hold dialysis for today, will undergo hemodialysis in a.m. Patient's troponin elevation likely secondary to NSTEMI type II, will need outpatient cardiology workup. Case discussed with attending Dr. Rosalie Adan MD. Judit Stark MD PGY-2 Documentation for date of: 06/10/25 Subjective Subjective Interval history: No acute overnight events. Patient seen and examined at bedside. Patient feels well today, reports that breathing has been much improved since admission. Denies chest pain, shortness of breath, leg edema or fever. Patient saturating 100% on 2 L on exam. AST/ALT uptrending from 227/97 to 465/332, possibly secondary to sepsis however possible contribution from remdesivir that was started yesterday. Hold today's dose of remdesivir per pharmacy, reassess tomorrow to determine whether to continue. Start breathing treatments every 6 hours scheduled. Cardiology previously consulted for elevated troponins, follow-up with echo. For hypertension, consider to start metoprolol. Continue ceftriaxone and azithromycin. Restart calcium acetate phosphate binder only regarding bringing Cinacalcet from home. Exam Vital Signs Temp Pulse Resp BP Pulse Ox O2 Del Method O2 Flow Rate 97.0 F 74 18 138/92 H 90 L Nasal Cannula 5 06/10/25 08:00 06/10/25 08:00 06/10/25 08:00 06/10/25 08:00 06/10/25 08:00 06/10/25 08:00 06/10/25 08:00 FiO2 40 06/10/25 08:00 Narrative Exam GENERAL: AOx3, no acute distress HEENT: NC/AT, mucous membranes moist, bilateral sclera anicteric CARDIOVASCULAR: regular rate and rhythm, S1/S2 present, +3/6 blowing systolic murmur heard best at 2nd L intercostal space PULMONARY: clear to auscultation bilaterally, no rales/rhonchi/wheezes ABDOMINAL: soft, non-tender, non-distended, no rebound/guarding, bowel sounds present EXTREMITIES: no peripheral edema SKIN: warm and dry, intact, no rashes NEURO: CN II-XII grossly intact, no focal deficits, alert, following commands Objective Labs 06/10/25 04:20 06/10/25 04:20 Labs: Laboratory Results - last 24 hr 06/09/25 06/09/25 06/09/25 10:15 16:06 22:26 WBC RBC Hgb Hct MCV MCH MCHC RDW Std Deviation Plt Count Neut % (Auto) Lymph % (Auto) Daniels % (Auto) Eos % (Auto) Baso % (Auto) Neut # (Auto) Lymph # (Auto) Daniels # (Auto) Eos # (Auto) Baso # (Auto) Immature Gran # (Auto) Absolute Nucleated RBC Immature Gran % Nucleated RBC % VBG pH 7.46 VBG pCO2 34 L VBG pO2 81 H VBG O2 Sat (Janene) 97 VBG Base Excess 1 Sodium Potassium Chloride Carbon Dioxide Anion Gap BUN Creatinine Estim Creat Clear Calc eGFR BUN/Creatinine Ratio Glucose Calculated Osmolality Calcium Corrected Calcium Phosphorus 5.2 H Magnesium Total Bilirubin AST ALT Alkaline Phosphatase Troponin I 0.943 H* D 1.657 H* D 1.953 H* D Total Protein Albumin Globulin Albumin/Globulin Ratio 06/10/25 04:20 WBC 12.4 H RBC 3.75 L Hgb 11.7 L Hct 34.1 L MCV 91 MCH 31.2 MCHC 34.3 RDW Std Deviation 47.1 H Plt Count 197 Neut % (Auto) 85 H Lymph % (Auto) 10 Daniels % (Auto) 4 Eos % (Auto) 0 Baso % (Auto) 0 Neut # (Auto) 10.5 H Lymph # (Auto) 1.2 Daniels # (Auto) 0.5 Eos # (Auto) 0.0 Baso # (Auto) 0.0 Immature Gran # (Auto) 0.07 H Absolute Nucleated RBC 0.00 Immature Gran % 1 H Nucleated RBC % 0 VBG pH VBG pCO2 VBG pO2 VBG O2 Sat (Janene) VBG Base Excess Sodium 137 Potassium 4.5 D Chloride 95 L Carbon Dioxide 25.6 Anion Gap 16 BUN 59 H Creatinine 8.7 H* D Estim Creat Clear Calc 8.0 L eGFR 6 L* BUN/Creatinine Ratio 7 L Glucose 110 H Calculated Osmolality 291 Calcium 9.2 Corrected Calcium 9.4 Phosphorus 9.3 H Magnesium 1.8 Total Bilirubin 0.3 AST 465 H ALT 332 H Alkaline Phosphatase 244 H D Troponin I 1.775 H* Total Protein 6.3 Albumin 3.7 Globulin 2.6 Albumin/Globulin Ratio 1.4 ABG Interpretation ABG results: 06/09/25 06/09/25 06/09/25 02:18 04:43 16:06 ABG pH 7.11 L* 7.29 L D ABG pCO2 40 31 L ABG pO2 158 H 118 H D ABG HCO3 13 L 15 L ABG O2 Saturation 99 H 99 H ABG Base Excess -16 L -11 L VBG pH 7.46 VBG pCO2 34 L VBG pO2 81 H VBG Base Excess 1 Quality Measures Quality Measures VTE prophylaxis Advance care planning discussed with:: patient Assessment & Plan Assessment Current Active Medications: Generic Name Dose Route Start Last Admin Trade Name Freq PRN Reason Stop Dose Admin Acetaminophen 650 mg 06/09/25 04:51 Acetaminophen Supp 650 Mg Supp MS 07/09/25 04:50 Q6HR PRN Fever > 100.4 or pain Albuterol/Ipratropium 3 ml 06/10/25 13:00 Albuterol/Ipratropium (Duoneb) Rt Phuong 3 Ml Nebu INH 07/10/25 12:59 Q6HRRT JEYSON Dexamethasone Sodium Phosphate 6 mg 06/09/25 15:30 06/10/25 08:46 Dexamethasone Sod Phos Inj 10 Mg/Ml Vial IV 06/18/25 09:01 6 mg QDAY JEYSON Administration Heparin Sodium (Porcine) 5,000 unit 06/09/25 09:00 06/10/25 08:47 Heparin Sod Inj 5000 Unit/Ml Vial SC 06/23/25 08:59 5,000 unit Q12HR JEYSON Administration Ceftriaxone Sodium/Dextrose 1 gm in 50 mls @ 100 mls/hr 06/10/25 09:00 06/10/25 08:46 Rocephin/D5w 1gm Iv Premix IV 06/17/25 08:59 100 mls/hr QDAY JEYSON Administration Azithromycin 500 mg/ Sodium 250 mls @ 250 mls/hr 06/09/25 04:58 06/09/25 10:08 Chloride IV 06/16/25 04:57 Not Given QDAY JEYSON Albumin Human 25 gm in 100 mls @ 100 mls/min 06/09/25 09:08 Albuminar-25 Ivpb IV PRN PRN DIALYSIS Remdesivir 100 mg/ Sodium 100 mls @ 100 mls/hr 06/10/25 14:00 Chloride IV QDAY@1400 JEYSON Sevelamer Carbonate 800 mg 06/10/25 12:00 Sevelamer Carbonate 800 Mg Tablet PO 07/10/25 11:59 TIDWM JEYSON Sodium Chloride 3 ml 06/09/25 02:30 Sodium Chloride Rt Phuong 0.9% 3 Ml Nebu INH 07/09/25 02:29 PRN PRN SOLN Plan Dio Burnett is a 69M with PMHx significant for HTN, ESRD (M/W/F) presented to [facility] ED on 06/09 with shortness of breath, admitted for acute hypoxic respiratory failure secondary to fluid overload complicated by COVID infection with possible superimposed bacterial infection. #Acute hypoxic respiratory failure 2/2 #Volume overload due to missed dialysis iso #ESRD (M/W/F) #HAGMA, resolved Presents with shortness of breath x 2 days, with symptoms worsening since missing dialysis session on Saturday. Patient missed session due to feeling of general malaise and runny nose with cough with productive sputum. Patient denies fevers, chills. In ED COVID +, CXR shows vascular congestion. BNP >3200, ABG on admission 7.11 pH, PCO2 40, PO2 158. Patient placed on BiPAP. Repeat ABG showed pH 7.29, pCO2 31, pO2 118. Patient follows with Dr. Narvaez. Received HD 06/09, Plan: - Continue O2 NC, wean off as tolerated - Dr. Narvaez consulted, appreciate recs: HD tomorrow #Sepsis 2/2 #COVID positive #Possible superimposed bacterial pneumonia #Lactic acidosis, resolved On admission, patient met SIRS criteria with tachycardia, tachypnea, febrile temp 102.9 ?F and WBC 16.1 with positive COVID infection and end organ damage of elevated troponins. Lactic acid 3.6 on admission downtrended to 1.5. Sepsis likely secondary to COVID infection however community-acquired pneumonia cannot be excluded even though chest x-ray does not indicate PNA. BCx [id number] Plan: - Remdesivir (06/09, ) and decadron - Hold current dose of remdesivir due to transaminitis per pharmacy, reassess tomorrow - Rocephin 1 g IV daily (06/09- ) and Azithromycin 500 mg IV daily (06/09- ) - Airborne isolation #Transaminitis On admission AST/ALT 28/12. However on the 06/09 increased to 227/94, and further increased to 465/332. Alk phos 112 on admission->146->244 Initially increased likely secondary to sepsis. Remdesivir started 06/10. CTAP in 03/16/25 showed cirrhosis Liver US showed absent gallbladder, common bile duct 0.7 cm with no stones, fatty liver infiltration with left lobe liver cyst Plan: - Hold remdesivir today per pharmacy as above - CTM LFTs #NSTEMI likely type II 2/2 volume overload On admission, troponins 0.165->0.94->1.65->1.95->1.77 Likely type II in the setting of sepsis and dramatic drop in blood pressure on admission. Per cardiology troponinemia as expected as patient is an ESRD. EKG shows sinus rhythm rate 70 with left axis deviation. No ST elevation Plan: - Cardiology consulted, recs appreciated: Stat TTE, Keep K>4 and Mg>2 - CTM BP #HTN #Hypertensive urgency Patient history as stated. Blood pressure on arrival 193/150. Patient denies chest pain, headache, blurry vision. Patient symptoms most likely due to missed dialysis session, complicated by infection. Patient received metoprolol to tartrate in the ED, blood pressure decreased to 117/80. Plan: - Holding patient's home antihypertensive medication in setting of rapid decrease in blood pressure - Monitor blood pressure closely - Plan to restart antihypertensives once condition stabilizes, consider starting metoprolol per cardiology #Mechanical fall 06/09 Patient sustained mechanical fall in the ED on R side as he was trying to get onto the commode. No loss of consciousness or head strike. Femur x-ray shows no acute fracture. Hip x-ray limited study no acute right hip fracture noted. Knee x-ray no fracture or dislocation. Plan: - CTM for increased pain and vitals - PT ordered Hospital management: Lines: PIV, [place] Diet: Renal Bowel: None GI prophylaxis: None DVT prophylaxis: heparin q12 Disposition: tele for management of AHRF and abx CODE STATUS: Full code Plan of care discussed with attending Dr. Adan, and PGY-2 Dr. Stark. Nuha Rao, DO PGY-1 Internal Medicine Attending Provider Attestation/Addendum I attest that I was physically present for the evaluation, physical examination, lab and imaging review of the patient with the residents. I discussed the case with the residents and agree with the findings and plans of care as documented above. At bedside today, patient appears to have improved significantly. Supplemental oxygen requirement has came down to 2 L nasal cannula, we will continue to try to wean down. States that he feels better. AST/ALT noted to be uptrending, 465/332 today possibly secondary to COVID manage/remdesivir/overload. We will discontinue the remdesivir as patient had drastic improvement and worsening LFT. Liver ultrasound was also obtained, which showed fatty infiltration of liver, left lobe liver cyst and absent gallbladder. WBC count is improving, kidney function and potassium level improved after dialysis yesterday. Phosphate level noted to be 9.3 this morning, we will resume home phosphate binder, Cinacalcet and vitamin D. Troponin level peaked at 1.953, patient denies chest pain, cardiology following closely, most likely secondary to NSTEMI type II pending echocardiography., We will continue to wean down supplemental oxygen. Rosalie Adan MD
[2025-06-10] MEDS: AZITHROMYCIN INJ 500 MG in SODIUM CHLORIDE 0.9% 250 ML 250 ML 250 MG IV (09:42)
--- NOTE | 2025-06-10 10:33 | XR_ITS ---
Examination: Abdomen sonogram, Limited Date and time of exam: June 10, 2025 1249 hours INDICATIONS: Elevated liver function tests on laboratory examination today Technique: Real-time mehta scale transabdominal sonographic images of the upper abdomen obtained. Findings: Absent gallbladder Common bile duct 0.7 cm no stones Pancreatic head 2.0 cm Liver 14.4 cm fatty infiltration left lobe liver cyst 10 mm Normal hepatopedal portal venous flow Patent IVC IMPRESSION: Common bile duct 0.7 cm no common bile duct stones
[2025-06-10] MEDS: ALBUTEROL/IPRATROPIUM (Duoneb) RT SOL 3 ML NEBU INH ×2 (13:09→19:35)
[2025-06-10] MEDS: CALCIUM ACETATE 667 MG TABLET PO ×2 (13:33→21:09)
--- NOTE | 2025-06-10 16:17 | PC.SS ---
Pt is COVID positive. SS attempted to call pt 3X but was unsuccessful. SS also attempted to contact but was unsuccessful.
--- NOTE | 2025-06-10 22:08 | ESPR_ITS ---
Documentation for date of: 06/10/25 Subjective Subjective Interval history: 06/10: Patient was seen and examined at bedside. He denies chest pain/pressure, palpitations, lightheadedness, SOB, or leg swelling and is already inquiring about his discharge disposition. BP 139/91, HR 60, RR 20, O2 100% on 4L NC. WBC 12.4, hemoglobin 11.7, MCV 91, creatinine 8.7, BUN 59, glucose 110, AST 465, ALT 332, ALP 244. Troponin one 1.775, down from 1.953 peak. 69 y/o M with PMHx significant for HTN, ESRD (M/W/F) presented to ED with chief complaint of shortness of breath. Pt had been feeling sick with runny nose, congestion, and malaise during the past weekend and did not make it his dialysis session on Saturday as a result. Patient also developed a productive cough. Patient was admitted for fluid overload in February 2025 and treated with inpatient dialysis. He receives hemodialysis through a Lt AV fistula created 2y ago She follows with Dr. Narvaez. Patient denies fever, chills, chest pain, nausea, vomiting, abdominal pain. Patient denies any cardiac history including heart failure or CAD. Patient states that he feels much better since admission, denies oxygen use at home or CPAP. Patient was placed on BiPAP and received urgent hemodialysis today. He is COVID positive and is placed in airbore precautions. Treated empirically with Rocephin 1 g IV daily and azithromycin 500 mg IV daily Troponin I .165 initially, .943, and 1.657 trending up AST 227 (28), ALT 94 (12), ALP 146 (112). BP 144/91, HR 72, RR 16, T96.9F, O2 100 on 4L NC ED COURSE: Labs significant for: WBC 16.1, serum bicarb 15.1, lactic acid 3.6. Troponin 0.165, BNP greater than 3200, CRP 7.3, ESR 35, Pro-Forrest negative. ABG showed pH 7.11, PCO2 40, PO2 185. COVID test positive. Imaging significant for: Chest x-ray showing vascular congestion. Patient started on BiPAP for acute hypoxic respiratory failure in the setting of fluid overload, with acidosis. Patient received metoprolol, nitro, morphine, methylprednisolone, bicarb, 1 g Tylenol, cefepime, vanc, DuoNebs while in the ED. Exam Vital Signs Temp Pulse Resp BP Pulse Ox O2 Del Method O2 Flow Rate 98.5 F 88 18 133/83 H 97 Room Air 4 06/10/25 20:00 06/10/25 20:00 06/10/25 20:00 06/10/25 20:00 06/10/25 20:00 06/10/25 20:00 06/10/25 16:00 FiO2 40 06/10/25 12:00 Narrative Exam Narrative Exam General: Alert and oriented x3, No apparent distress. Skin: Intact, Warm, no rashes. HEENT: Normocephalic, Atraumatic. Normal neck range of motion, Supple. Trachea midline. Respiratory: Lungs are clear to auscultation, Breath sounds are equal bilaterally with equal chest expansion. Cardiovascular: RRR, normal S1, S2, No murmurs. Distal pulses 2+. JVP <3cm from sternal angle. Abdomen: Abdomen soft, non-distended, without erythema, or lesions. Normotensive bowel sounds x4. Percussion tympanic. Palpation nontender in all four quadrants. No organomagely. No guarding or rebound present. Musculoskeletal/Extremities: No erythema, swelling, tenderness of any joints. No edema of BLE. DP pulses +2/3 b/l. Full active ROM of all four extremities. Palpable Lt AV fistula thrill. Neurologic: NEURO: Oriented x3, cranial nerves II to XII grossly intact. Cerebellar exam ([id number], suae-ta-[id number]) intact. Muscle strength 5/5 on UE and LE b/l, Moves extremities x4. Sensation intact to gross touch along C6-T1 and L2-S1 dermatomes. No focal neurologic deficits noted Psych: Thoughts linear and responses appropriate. Objective Labs 06/11/25 05:48 06/11/25 05:48 Labs: Laboratory Results - last 24 hr 06/09/25 06/10/25 06/10/25 22:26 04:20 10:25 WBC 12.4 H RBC 3.75 L Hgb 11.7 L Hct 34.1 L MCV 91 MCH 31.2 MCHC 34.3 RDW Std Deviation 47.1 H Plt Count 197 Neut % (Auto) 85 H Lymph % (Auto) 10 [place] % (Auto) 4 Eos % (Auto) 0 Baso % (Auto) 0 Neut # (Auto) 10.5 H Lymph # (Auto) 1.2 [place] # (Auto) 0.5 Eos # (Auto) 0.0 Baso # (Auto) 0.0 Immature Gran # (Auto) 0.07 H Absolute Nucleated RBC 0.00 Immature Gran % 1 H Nucleated RBC % 0 Sodium 137 Potassium 4.5 D Chloride 95 L Carbon Dioxide 25.6 Anion Gap 16 BUN 59 H Creatinine 8.7 H* D Estim Creat Clear Calc 8.0 L eGFR 6 L* BUN/Creatinine Ratio 7 L Glucose 110 H Calculated Osmolality 291 Calcium 9.2 Corrected Calcium 9.4 Phosphorus 9.3 H Magnesium 1.8 Total Bilirubin 0.3 AST 465 H ALT 332 H Alkaline Phosphatase 244 H D Troponin I 1.953 H* D 1.775 H* Cancelled Total Protein 6.3 Albumin 3.7 Globulin 2.6 Albumin/Globulin Ratio 1.4 ABG Interpretation ABG results: 06/09/25 06/09/25 06/09/25 02:18 04:43 16:06 ABG pH 7.11 L* 7.29 L D ABG pCO2 40 31 L ABG pO2 158 H 118 H D ABG HCO3 13 L 15 L ABG O2 Saturation 99 H 99 H ABG Base Excess -16 L -11 L VBG pH 7.46 VBG pCO2 34 L VBG pO2 81 H VBG Base Excess 1 Quality Measures Quality Measures VTE prophylaxis Advance care planning discussed with:: patient Assessment & Plan Assessment Current Active Medications: Generic Name Dose Route Start Last Admin Trade Name Freq PRN Reason Stop Dose Admin Acetaminophen 650 mg 06/09/25 04:51 Acetaminophen Supp 650 Mg Supp SD 07/09/25 04:50 Q6HR PRN Fever > 100.4 or pain Albuterol/Ipratropium 3 ml 06/10/25 13:00 06/10/25 19:35 Albuterol/Ipratropium (Duoneb) Rt Phuong 3 Ml Nebu INH 07/10/25 12:59 3 ml Q6HRRT JEYSON Administration Calcium Acetate 667 mg 06/10/25 14:00 06/10/25 21:09 Calcium Acetate 667 Mg Tablet PO 07/10/25 13:59 667 mg TID JEYSON Administration Dexamethasone Sodium Phosphate 6 mg 06/09/25 15:30 08/21/25 08:46 Dexamethasone Sod Phos Inj 10 Mg/Ml Vial IV 06/18/25 09:01 6 mg QDAY JEYSON Administration Heparin Sodium (Porcine) 5,000 unit 06/09/25 09:00 06/10/25 21:09 Heparin Sod Inj 5000 Unit/Ml Vial SC 06/23/25 08:59 5,000 unit Q12HR JEYSON Administration Ceftriaxone Sodium/Dextrose 1 gm in 50 mls @ 100 mls/hr 06/10/25 09:00 06/10/25 08:46 Rocephin/D5w 1gm Iv Premix IV 06/17/25 08:59 100 mls/hr QDAY JEYSON Administration Azithromycin 500 mg/ Sodium 250 mls @ 250 mls/hr 06/09/25 04:58 06/10/25 09:42 Chloride IV 06/16/25 04:57 250 mls/hr QDAY JEYSON Administration Albumin Human 25 gm in 100 mls @ 100 mls/min 06/09/25 09:08 Albuminar-25 Ivpb IV PRN PRN DIALYSIS Non-Formulary Medication 50,000 unit 06/10/25 10:45 Ergocalciferol (Vitamin D2) PO 07/10/25 10:44 DAILY JEYSON Sodium Chloride 3 ml 06/09/25 02:30 Sodium Chloride Rt Phuong 0.9% 3 Ml Nebu INH 07/09/25 02:29 PRN PRN SOLN Plan 69 y/o M with PMHx significant for HTN, ESRD (M/W/F) presented to ED with chief complaint of shortness of breath 69 y/o F. Pt was admitted for acute hypoxic respiratory failure secondary to fluid overload. He has a confirmed infection with COVID with possible superimposed bacterial infection. In ED patient was positive for COVID, CXR shows vascular congestion, O2 sat 85, BNP >3280, ABG on admission pH 7.11, PCO2 40, PO2 158. Patient placed on BiPAP. Repeat ABG showed pH 7.29, pCO2 31, pO2 118. Pt is started on empiric treatment with Rocephin 1 g IV daily (06/09- ) and Azithromycin 500 mg IV daily (06/09- ) Cardiology is being consulted for evaluation of uptrending troponins 0.165, 0.943, 1.675 EKG showed NSR with QT interval prolongation (QTc 492) Problems: #NSTEMI Type II, resolved #Transminitis #Hepatomegaly, likely fatty liver disease vs cirrhosis #ESRD (M/W/F) #60 mm lower poleleft renal mass #Lateral left renal mass 12 mm with calcification #Abdominal aortic aneurysm #Colonic Diverticulosis #Acute hypoxic respiratory failure #Volume overload due to missed dialysis #COVID positive #Possible superimposed bacterial pneumonia #Sepsis 2/2 infection #HTN #Hypertensive urgency Troponin peak 1.953 before trended down to 1.775. Patient does not complain of chest pain/pressure, satting 97% on 2L of NC, and unremarkable EKG, NSTEMI has resolved. NSTEMI more likely to be type ii in the context of initial reflexive tachycardia, but also abrupt drop in BP from 193/150 to <110/80, hypoxemia. Hgb 11.7 and close to baseline. Troponinemia is expected in the setting of CKD, as the patient is unable to clear troponins from blood, and it accumulates as a result. Transminitis likely to be secondary to hypotension vs RV failure and congestive hepatomegaly pending TTE. AST 465, ALT 332, ALP 244. Ultrasound of the liver was negative for CBD dilitation or stones. In agreement with holding home antihypertensive meds in the setting of acute drop in BP close to 50% when compared to presenting values. Recommend stat TTE for assessment of cardiac wall motion, and heart function/CO. Recommend keeping Mg >2 and K+ >4 at all times. Recommendations: Stop trending any further troponins at the present point of time. Patient mostly has type II NSTEMI in the setting of supply/demand mismatch because of the COVID-19 infection, history of CKD and acute drop of blood pressure.. Patient treated with bolus heparin 60u/kg (max 4000u) followed by IV 12u/kg/h, aspirin 162-325mg, metoprolol 25-50mg PO Q6h titrate slowly to HR 50-60, and atorvastatin 80mg, and ACEi/ARB. Patient reports chest pain, and/or EKG ST/T changes are present. Bedside echocardiogram performed and EF is normal and no regional wall motion abnormalities. Patient recommended to follow-up with cardiology as outpatient for a complete echocardiogram and further ischemic testing. Thank you for cardiology consultation. We appreciate the opportunity to participate in this patient's care. Will continue to follow-up on this patient This case was discussed with my attending physician, Dr. Welsh, service sprinkler helper. Jeanette Ferro, PGY I
[2025-06-11] VITALS (24 sets, daily range): BP systolic 130–163; BP diastolic 78–101; PULSE 65–96; RESP 11–99; TEMP 36.4–37.3; O2SAT 96–100; BMI 25.3
[2025-06-11] MEDS: ALBUTEROL/IPRATROPIUM (Duoneb) RT SOL 3 ML NEBU INH ×4 (00:40→19:15)
[2025-06-11] MEDS: CALCIUM ACETATE 667 MG TABLET PO (05:11)
[2025-06-11 06:29] LABS: Basophils # (Auto) 0.0 Thou/mm3 (0.0-0.2); Basophils % (Auto) 0 % (0-2.5); Eosinophils # (Auto) 0.0 Thou/mm3 (0.0-0.5); Eosinophils % (Auto) 0 % (0-10); Hematocrit 31.3 % (41.0-53.0); Hemoglobin 11.0 g/dL (13.5-16.0); Immature Granulocytes Auto 0.06 Thou/mm3 (0.00-0.00); Lymphocytes # (Auto) 0.9 Thou/mm3 (1.0-4.8); Lymphocytes % (Auto) 7 % (10-50); Mean Corpuscular HGB Conc 35.1 g/dl (31.0-37.0); Mean Corpuscular Hemoglobin 31.7 pg (25.0-35.0); Mean Corpuscular Volume 90 fL (80-100); Monocytes # (Auto) 0.6 Thou/mm3 (0.0-0.8); Monocytes % (Auto) 5 % (0-12); Neutrophils # (Auto) 10.5 Thou/mm3 (1.8-7.7); Neutrophils % (Auto) 87 % (37-80); Nucleated Red Blood Cell # 0.00 Thou/mm3 (0.00-0.00); Nucleated Red Blood Cell % 0 /100 WBC (0); Platelet Count 208 Thou/mm3 (140-440); RDW Standard Deviation 46.1 fL (35.1-43.9); Red Blood Count 3.47 Miln/mm3 (4.50-5.90); White Blood Count 12.1 Thou/mm3 (3.8-10.6)
[2025-06-11 06:56] LABS: Alanine Aminotransferase 242 U/L (10-49); Albumin, Serum 3.6 gm/dL (3.4-4.8); Albumin/Globulin Ratio 1.3 (1.2-2.2); Alkaline Phosphatase 196 U/L (46-116); Anion Gap 21 (7-16); Aspartate Amino Transferase 154 U/L (0-34); BUN/Creatinine Ratio 8 Ratio (12-20); Bilirubin,Total 0.2 mg/dL (0.3-1.2); Blood Urea Nitrogen 81 mg/dL (9-23); Calcium 8.6 mg/dL (8.3-10.6); Calcium (Corrected) 8.9 mg/dL (8.5-10.1); Carbon Dioxide 20.1 mMol/L (20.0-31.0); Chloride 91 mMol/L (98-107); Creatinine (Component) 10.7 mg/dL (0.6-1.3); Estimated Creatinine Clearance 6.5 mL/min (>60); Globulin 2.7 gm/dL (2.3-3.5); Glucose 106 mg/dL (74-106); Magnesium 2.2 mg/dL (1.6-2.6); Osmolality,Calculated 288 (275-295); Potassium 4.0 mMol/L (3.4-5.1); Sodium 132 mMol/L (136-145); Total Protein 6.3 gm/dL (5.7-8.2); eGFR 5 See Note
[2025-06-11 07:08] LABS: Phosphorous 9.6 mg/dL (2.4-5.1)
--- NOTE | 2025-06-11 08:45 | ESPR_ITS ---
Documentation for date of: 06/11/25 Subjective Subjective Interval history: Maria G Burnett is a 69 y/o gentleman with PMHx significant for HTN, ESRD (M/W/F) presented to ED with chief complaint of shortness of breath. He states that his symptoms of SOB got worse after he missed his HD session. He reports that he attends his HD regularly, however on saturday he could not attend because he felt ill, having fever, chills, general fatigue and runny nose. He endorses a productive cough with green phlem for the past 3 days. 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 In 02/2025, pt was admitted for a similar presentation requiring inpatient HD for volume overload. 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 ROS Endorses fever, chills, productive cough, fatigue, rhinorrhea, he denies, chest pain, abdominal pain, nausea, vomiting, diarrhea, constipation ED COURSE: Labs significant for: WBC 16.1, serum bicarb 15.1, lactic acid 3.6. Troponin 0.165, BNP greater than 3200, CRP 7.3, ESR 35, Pro-Forrest negative. ABG showed pH 7.11, PCO2 40, PO2 185. COVID test positive. Imaging significant for: Chest x-ray showing vascular congestion. Patient started on BiPAP for acute hypoxic respiratory failure in the setting of fluid overload, with acidosis. Patient received metoprolol, nitro, morphine, methylprednisolone, bicarb, 1 g Tylenol, cefepime, vanc, DuoNebs while in the ED. PMH: HTN, ESRD PSH: Cholecystectomy SH: 10 pack-year smoking history. Denies alcohol use. 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 Allergies:?No known drug allergies 06/09/2025: Patient admitted, Nephrology consulted for urgent HD, Pt seen and examined in HD. Pt is alert and awake, wearing BiPAP. He states that he was feeling short of breath, no chest pain. on exam he has congestion in the upper lung fileds (difficult to appreciate lung sounds while Bipap machine on). 06/10/2025: Patient seen and examined at bedside. Patient remains on contact precautions given COVID-positive. Patient has alert and awake sitting upright in the bed no BiPAP. Patient denies feeling short of breath, no chest pain. On exam he continues to have bilateral ronchi and congestion. Patient states that his son's wedding is on which she had initially hoped to attend. Per discussion with primary team they are holding remdesivir here in setting of transaminitis. Patient will continue to receive hemodialysis per his regular schedule Saturday, no HD today. 06/11/2025 Patient seen and examined at bedside. Pt on contact precautions for covid. Pt alert and awake, on RA, pt intermittent dry cough, no shortness of breath, no chest pain. H has BL ronchi on exam that are mildly improved from prior. Trace edema BLE. He hopes to be discharged soon. BUN 81 from 59, Cr 10.7 from 8.7. Plan for HD today per his [facility] Exam Vital Signs Temp Pulse Resp BP Pulse Ox O2 Del Method O2 Flow Rate 99.1 F 82 16 131/83 H 100 Room Air 4 06/11/25 04:00 06/11/25 07:17 06/11/25 07:17 06/11/25 04:00 06/11/25 07:17 06/11/25 04:00 06/10/25 16:00 FiO2 40 06/10/25 12:00 Narrative Exam GENERAL: no acute distress, AAO x3, comfortably laying in bed. HEENT: Head AT/ NC. Mucous membranes moist. NECK: Supple, no lymphadenopathy, no carotid bruits. CARDIOVASCULAR: RRR. Normal S1/S2,+ murmmor . edema of bilateral LEs. RESPIRATORY: bilateral crackles on auscultation of mid lung rashid, on RA GASTROINTESTINAL: Abdomen soft, non tender no palpable masses. Bowel sounds present MUSCULOSKELETAL:? No cyanosis or edema, no visible joint swelling. NEUROLOGICAL: CN II-XII grossly intact. No focal deficits. Sensation intact, symmetric. PSYCHIATRIC: Awake and alert, not agitated, normal mood and affect. SKIN: No obvious rashes, no jaundice, normal turgor. Objective Labs 06/11/25 05:48 06/11/25 05:48 Labs: Laboratory Results - last 24 hr 06/10/25 06/11/25 10:25 05:48 WBC 12.1 H RBC 3.47 L Hgb 11.0 L Hct 31.3 L MCV 90 MCH 31.7 MCHC 35.1 RDW Std Deviation 46.1 H Plt Count 208 Neut % (Auto) 87 H Lymph % (Auto) 7 L [place] % (Auto) 5 Eos % (Auto) 0 Baso % (Auto) 0 Neut # (Auto) 10.5 H Lymph # (Auto) 0.9 L [place] # (Auto) 0.6 Eos # (Auto) 0.0 Baso # (Auto) 0.0 Immature Gran # (Auto) 0.06 H Absolute Nucleated RBC 0.00 Immature Gran % 1 H Nucleated RBC % 0 Sodium 132 L Potassium 4.0 D Chloride 91 L Carbon Dioxide 20.1 Anion Gap 21 H BUN 81 H Creatinine 10.7 H* D Estim Creat Clear Calc 6.5 L eGFR 5 L* BUN/Creatinine Ratio 8 L Glucose 106 Calculated Osmolality 288 Calcium 8.6 Corrected Calcium 8.9 Phosphorus 9.6 H Magnesium 2.2 Total Bilirubin 0.2 L AST 154 H ALT 242 H Alkaline Phosphatase 196 H D Troponin I Cancelled Total Protein 6.3 Albumin 3.6 Globulin 2.7 Albumin/Globulin Ratio 1.3 ABG Interpretation ABG results: 06/09/25 06/09/25 06/09/25 02:18 04:43 16:06 ABG pH 7.11 L* 7.29 L D ABG pCO2 40 31 L ABG pO2 158 H 118 H D ABG HCO3 13 L 15 L ABG O2 Saturation 99 H 99 H ABG Base Excess -16 L -11 L VBG pH 7.46 VBG pCO2 34 L VBG pO2 81 H VBG Base Excess 1 Quality Measures Quality Measures VTE prophylaxis Advance care planning discussed with:: patient Assessment & Plan Assessment Current Active Medications: Generic Name Dose Route Start Last Admin Trade Name Freq PRN Reason Stop Dose Admin Acetaminophen 650 mg 06/09/25 04:51 Acetaminophen Supp 650 Mg Supp MN 07/09/25 04:50 Q6HR PRN Fever > 100.4 or pain Albuterol/Ipratropium 3 ml 06/10/25 13:00 06/11/25 07:17 Albuterol/Ipratropium (Duoneb) Rt Phuong 3 Ml Nebu INH 07/10/25 12:59 3 ml Q6HRRT JEYSON Administration Calcium Acetate 667 mg 06/10/25 14:00 06/11/25 05:11 Calcium Acetate 667 Mg Tablet PO 07/10/25 13:59 667 mg TID JEYSON Administration Dexamethasone Sodium Phosphate 6 mg 06/09/25 15:30 06/10/25 08:46 Dexamethasone Sod Phos Inj 10 Mg/Ml Vial IV 06/18/25 09:01 6 mg QDAY JEYSON Administration Heparin Sodium (Porcine) 5,000 unit 06/09/25 09:00 06/10/25 21:09 Heparin Sod Inj 5000 Unit/Ml Vial SC 06/23/25 08:59 5,000 unit Q12HR JEYSON Administration Ceftriaxone Sodium/Dextrose 1 gm in 50 mls @ 100 mls/hr 06/10/25 09:00 06/10/25 08:46 Rocephin/D5w 1gm Iv Premix IV 06/17/25 08:59 100 mls/hr QDAY JEYSON Administration Azithromycin 500 mg/ Sodium 250 mls @ 250 mls/hr 06/09/25 04:58 06/10/25 09:42 Chloride IV 06/16/25 04:57 250 mls/hr QDAY JEYSON Administration Albumin Human 25 gm in 100 mls @ 100 mls/min 06/09/25 09:08 Albuminar-25 Ivpb IV PRN PRN DIALYSIS Non-Formulary Medication 50,000 unit 06/10/25 10:45 Ergocalciferol (Vitamin D2) PO 07/10/25 10:44 DAILY JEYSON Sodium Chloride 3 ml 06/09/25 02:30 Sodium Chloride Rt Phuong 0.9% 3 Ml Nebu INH 07/09/25 02:29 PRN PRN SOLN Plan 69 y/o F with PMHx significant for HTN, ESRD (M/W/F) presented to ED with chief complaint of shortness of breath, admitted for acute hypoxic respiratory failure secondary to fluid overload complicated by COVID infection with possible superimposed bacterial infection. pt remains volume overloaded, however improved, now on RA with nl work of breathing, plan for HD per regular schedule. HD today #Acute hypoxic respiratory failure secondary to-- resolved #Fluid overload due to missed dialysis-resolving #ESRD (M/W/F)- followed by Dr. Narvaez #electrolyte abnormalities #hyperkalemia - resolved #hyperphosphatemia #nonnephrotic range proteinuria pt presented to the ED with Shortness of breath for the past 2 days. worsening in setting of missed HD session on saturday. pt missed in setting of #COVID illness (symptomatic with fatigue, malaise, and rhinorrhea, and shortness of breath) hyperkalemia likely 2/2 missed HD, will likely correct with HD On 06/09 K 5.9, BUN 72, Cr 11.3, Abg 7.29, HCO3 15 UA with 2+ protein, 2+ glucose On 06/10 K 4.5, BUN 59, Cr 8.7, no longer requiring bipap, on 5L NC. On 06/11 K 4.0 BUN 81 from 59, Cr 10.7 from 8.7 HD: 06/09, 06/11 Plan - HD today UF 2L as tolerated - CMP daily - CTM volume status - Avoid nephrotoxic medications #COVID infection #Possible superimposed bacterial pneumonia #leukocytosis downtrending #HTN #Hypertensive urgency- resolved Blood pressure on arrival 193/150. Patient denies chest pain, headache, blurry vision likely hypertensive in setting of missed HD session. On 06/10 SBP is more normotensive, 120s - 130s #trop elevation- peaked at 1.953 #transaminitis- hepatocellular pattern - worsening -management per primary team Plan discussed with nephrology attending Dr. Solange Carey MD Internal Medicine PGY-1 Attending Provider Attestation/Addendum Patient seen and examined with resident physician Dr. Carey. Note reviewed, agree with findings and recommendations. Admitted with high fevers, acute hypoxic respiratory failure secondary to COVID- pneumonia. Did miss dialysis session Saturday. Potassium seems to be elevated. Labs reviewed. 06/11/2025 Patient in respiratory isolation. Feeling much better. Patient currently seen on dialysis. Tolerating dialysis without any problems. Hemodialysis for 3 hours, 2K, ultrafiltration 2-3 L, Epogen 6000, no heparin ordered. Plan of care discussed with the dialysis nurse. Please see dialysis flowsheet for further details. Renal lance stable for discharge.
--- NOTE | 2025-06-11 09:00 | PD.RESPRO ---
Documentation for date of: 06/11/25 Subjective Subjective Interval history: 06/11: Patient was seen and examined at bedside. He denies chest pain/pressure, palpitations, lightheadedness, SOB, or leg swelling. Patient is off supplemental oxygen and satting 100% in RA. inquires. He is going to receive dialysis today. BP 131/83, HR 82, RR 16. WBC 12.1, hemoglobin 11, creatinine 10.7, BUN 81, glucose 105, AST 154 (465), ALT 208 (332), ALP 196 (244). Bedside echocardiogram without any regional wall motion abnormalities and LVEF appears normal. Patient recommended to follow-up with cardiology as outpatient for complete echocardiogram and further ischemic testing 69 y/o M with PMHx significant for HTN, ESRD (M/W/F) presented to ED with chief complaint of shortness of breath. Pt had been feeling sick with runny nose, congestion, and malaise during the past weekend and did not make it his dialysis session on Saturday as a result. Patient also developed a productive cough. Patient was admitted for fluid overload in February 2025 and treated with inpatient dialysis. He receives hemodialysis through a Lt AV fistula created 2y ago She follows with Dr. Narvaez. Patient denies fever, chills, chest pain, nausea, vomiting, abdominal pain. Patient denies any cardiac history including heart failure or CAD. Patient states that he feels much better since admission, denies oxygen use at home or CPAP. Patient was placed on BiPAP and received urgent hemodialysis today. He is COVID positive and is placed in airbore precautions. Treated empirically with Rocephin 1 g IV daily and azithromycin 500 mg IV daily Troponin I .165 initially, .943, and 1.657 trending up AST 227 (28), ALT 94 (12), ALP 146 (112). BP 144/91, HR 72, RR 16, T96.9F, O2 100 on 4L NC ED COURSE: Labs significant for: WBC 16.1, serum bicarb 15.1, lactic acid 3.6. Troponin 0.165, BNP greater than 3200, CRP 7.3, ESR 35, Pro-Forrest negative. ABG showed pH 7.11, PCO2 40, PO2 185. COVID test positive. Imaging significant for: Chest x-ray showing vascular congestion. Patient started on BiPAP for acute hypoxic respiratory failure in the setting of fluid overload, with acidosis. Patient received metoprolol, nitro, morphine, methylprednisolone, bicarb, 1 g Tylenol, cefepime, vanc, DuoNebs while in the ED. Exam Vital Signs Temp Pulse Resp BP Pulse Ox O2 Del Method O2 Flow Rate 98.4 F 92 18 133/84 H 96 Room Air 4 06/11/25 20:53 06/11/25 20:53 06/11/25 20:53 06/11/25 20:53 06/11/25 20:00 06/11/25 20:00 06/10/25 16:00 FiO2 40 06/10/25 12:00 Narrative Exam Narrative Exam General: Alert and oriented x3, No apparent distress. Skin: Intact, Warm, no rashes. HEENT: Normocephalic, Atraumatic. Normal neck range of motion, Supple. Trachea midline. Respiratory: Lungs are clear to auscultation, Breath sounds are equal bilaterally with equal chest expansion. Cardiovascular: RRR, normal S1, S2, No murmurs. Distal pulses 2+. JVP <3cm from sternal angle. Abdomen: Abdomen soft, non-distended, without erythema, or lesions. Normotensive bowel sounds x4. Percussion tympanic. Palpation nontender in all four quadrants. No organomagely. No guarding or rebound present. Musculoskeletal/Extremities: No erythema, swelling, tenderness of any joints. No edema of BLE. DP pulses +2/3 b/l. Full active ROM of all four extremities. Palpable Lt AV fistula thrill. Neurologic: NEURO: Oriented x3, cranial nerves II to XII grossly intact. Cerebellar exam ([id number], [id number]) intact. Muscle strength 5/5 on UE and LE b/l, Moves extremities x4. Sensation intact to gross touch along C6-T1 and L2-S1 dermatomes. No focal neurologic deficits noted Psych: Thoughts linear and responses appropriate. Objective Labs 06/11/25 05:48 06/11/25 05:48 Labs: Laboratory Results - last 24 hr 06/11/25 05:48 WBC 12.1 H RBC 3.47 L Hgb 11.0 L Hct 31.3 L MCV 90 MCH 31.7 MCHC 35.1 RDW Std Deviation 46.1 H Plt Count 208 Neut % (Auto) 87 H Lymph % (Auto) 7 L [place] % (Auto) 5 Eos % (Auto) 0 Baso % (Auto) 0 Neut # (Auto) 10.5 H Lymph # (Auto) 0.9 L [place] # (Auto) 0.6 Eos # (Auto) 0.0 Baso # (Auto) 0.0 Immature Gran # (Auto) 0.06 H Absolute Nucleated RBC 0.00 Immature Gran % 1 H Nucleated RBC % 0 Sodium 132 L Potassium 4.0 D Chloride 91 L Carbon Dioxide 20.1 Anion Gap 21 H BUN 81 H Creatinine 10.7 H* D Estim Creat Clear Calc 6.5 L eGFR 5 L* BUN/Creatinine Ratio 8 L Glucose 106 Calculated Osmolality 288 Calcium 8.6 Corrected Calcium 8.9 Phosphorus 9.6 H Magnesium 2.2 Total Bilirubin 0.2 L AST 154 H ALT 242 H Alkaline Phosphatase 196 H D Total Protein 6.3 Albumin 3.6 Globulin 2.7 Albumin/Globulin Ratio 1.3 ABG Interpretation ABG results: 06/09/25 06/09/25 06/09/25 02:18 04:43 16:06 ABG pH 7.11 L* 7.29 L D ABG pCO2 40 31 L ABG pO2 158 H 118 H D ABG HCO3 13 L 15 L ABG O2 Saturation 99 H 99 H ABG Base Excess -16 L -11 L VBG pH 7.46 VBG pCO2 34 L VBG pO2 81 H VBG Base Excess 1 Quality Measures Quality Measures VTE prophylaxis Advance care planning discussed with:: patient Assessment & Plan Assessment Current Active Medications: Generic Name Dose Route Start Last Admin Trade Name Freq PRN Reason Stop Dose Admin Acetaminophen 650 mg 06/09/25 04:51 Acetaminophen Supp 650 Mg Supp HI 07/09/25 04:50 Q6HR PRN Fever > 100.4 or pain Albuterol/Ipratropium 3 ml 06/11/25 19:27 Albuterol/Ipratropium (Duoneb) Rt Phuong 3 Ml Nebu INH 07/10/25 12:59 Q6HRRT PRN SHORTNESS OF BREATH OR WHEEZE Calcium Acetate 2,001 mg 06/11/25 14:00 06/11/25 17:29 Calcium Acetate 667 Mg Tablet PO 07/11/25 13:59 2,001 mg TIDWM JEYSON Administration Heparin Sodium (Porcine) 5,000 unit 06/09/25 09:00 06/11/25 09:55 Heparin Sod Inj 5000 Unit/Ml Vial SC 06/23/25 08:59 5,000 unit Q12HR JEYSON Administration Ceftriaxone Sodium/Dextrose 1 gm in 50 mls @ 100 mls/hr 06/10/25 09:00 06/11/25 09:55 Rocephin/D5w 1gm Iv Premix IV 06/17/25 08:59 100 mls/hr QDAY JEYSON Administration Azithromycin 500 mg/ Sodium 250 mls @ 250 mls/hr 06/09/25 04:58 06/11/25 09:54 Chloride IV 06/16/25 04:57 250 mls/hr QDAY JEYSON Administration Albumin Human 25 gm in 100 mls @ 100 mls/min 06/09/25 09:08 Albuminar-25 Ivpb IV PRN PRN DIALYSIS Non-Formulary Medication 50,000 unit 06/10/25 10:45 Ergocalciferol (Vitamin D2) PO 07/10/25 10:44 DAILY JEYSON Sodium Chloride 3 ml 06/09/25 02:30 Sodium Chloride Rt Phuong 0.9% 3 Ml Nebu INH 07/09/25 02:29 PRN PRN SOLN Plan 69 y/o M with PMHx significant for HTN, ESRD (M/W/F) presented to ED with chief complaint of shortness of breath 69 y/o F. Pt was admitted for acute hypoxic respiratory failure secondary to fluid overload. He has a confirmed infection with COVID with possible superimposed bacterial infection. In ED patient was positive for COVID, CXR shows vascular congestion, O2 sat 85, BNP >3280, ABG on admission pH 7.11, PCO2 40, PO2 158. Patient placed on BiPAP. Repeat ABG showed pH 7.29, pCO2 31, pO2 118. Pt is started on empiric treatment with Rocephin 1 g IV daily (06/09- ) and Azithromycin 500 mg IV daily (06/09- ) Cardiology is being consulted for evaluation of uptrending troponins 0.165, 0.943, 1.675 EKG showed NSR with QT interval prolongation (QTc 492) Problems: #NSTEMI Type II, resolved #Transminitis #Hepatomegaly, likely fatty liver disease vs cirrhosis #ESRD (M/W/F) #60 mm lower poleleft renal mass #Lateral left renal mass 12 mm with calcification #Abdominal aortic aneurysm #Colonic Diverticulosis #Acute hypoxic respiratory failure #Volume overload due to missed dialysis #COVID positive #Possible superimposed bacterial pneumonia #Sepsis 2/2 infection #HTN #Hypertensive urgency Troponin peak 1.953 before trended down to 1.775. Patient does not complain of chest pain/pressure, satting 97% on 2L of NC, and unremarkable EKG, NSTEMI has resolved. NSTEMI more likely to be type ii in the context of initial reflexive tachycardia, but also abrupt drop in BP from 193/150 to <110/80, hypoxemia. Hgb 11.7 and close to baseline. Troponinemia is expected in the setting of CKD, as the patient is unable to clear troponins from blood, and it accumulates as a result. Recommend TTE for assessment of cardiac wall motion, and heart function/CO, which can be completed as outpatient after discharge as patient is not exhibiting signs and symptoms of heart failure with prior NSTEMI. Transminitis likely to be secondary to hypotension vs RV failure and congestive hepatomegaly pending TTE. AST 154 (465), ALT 208 (332), ALP 196 (244). Ultrasound of the liver was negative for CBD dilitation or stones. In agreement with holding home antihypertensive meds in the setting of acute drop in BP close to 50% when compared to presenting values. Recommend keeping Mg >2 and K+ >4 at all times. Recommendations: Stop trending any further troponins at the present point of time. Patient mostly has type II NSTEMI in the setting of supply/demand mismatch because of the COVID-19 infection, history of CKD and acute drop of blood pressure.. Patient treated with bolus heparin 60u/kg (max 4000u) followed by IV 12u/kg/h, aspirin 162-325mg, metoprolol 25-50mg PO Q6h titrate slowly to HR 50-60, and atorvastatin 80mg, and ACEi/ARB. Patient reports chest pain, and/or EKG ST/T changes are present. Bedside echocardiogram performed and EF is normal and no regional wall motion abnormalities. Patient recommended to follow-up with cardiology as outpatient for a complete echocardiogram and further ischemic testing. Thank you for cardiology consultation. We appreciate the opportunity to participate in this patient's care. Will continue to follow-up on this patient This case was discussed with my attending physician, Dr. Welsh, sawmilling operator. Jeanette Ferro, DO PGY I Attending Provider Attestation/Addendum I have personally seen and examined the patient separately on the above date of service and discussed the plan of care with the resident. I reviewed the resident Dr. Reid consultation progress note and agree with the resident findings and plan in the note above and have also edited the documentation to reflect my findings and plan. Hugh Welsh M.D. Interventional Cardiology
--- NOTE | 2025-06-11 09:09 | PC.SS ---
Patient is a 69 year old male presenting to the hospital for SOB missed dialysis. TERRAZZO LAYER HELPER reviewed chart and it stated patient is COVID positive. TERRAZZO LAYER HELPER placed phone call to patient?s Pearl Burnett, role and reason for phone call explained. Patient?s confirmed demographic information and stated patient lives at home with . Patient?s stated that he does not use any DME and ambulates independently. Patients stated that patients PCP is Dr. Narvaez where he also receives dialysis on M, W,F. 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 TERRAZZO LAYER HELPER inquired who decision maker will be in case he is not able to make decisions, patient?s confirmed that it would be her Pearl Burnett PH: [phone]. Patient?s stated that patient?s phone number is [phone]. Patient?s stated that once medically clear she would like patient to return home and she will provide transportation. D/C: Home PCP: Dr. Narvaez Decision maker: , Pearl Burnett
[2025-06-11] MEDS: AZITHROMYCIN INJ 500 MG in SODIUM CHLORIDE 0.9% 250 ML 250 ML 250 MG IV (09:54)
[2025-06-11] MEDS: HEPARIN SOD INJ 5000 UNIT/ML VIAL SC (09:55)
[2025-06-11] MEDS: cefTRIAXone/D5w 1gm IV premix 1 GM/50 ML BAG IV (09:55)
[2025-06-11] MEDS: DEXAMETHASONE SOD PHOS INJ 10 MG/ML VIAL 6 MG IV (09:55)
--- NOTE | 2025-06-11 10:56 | PC.SS ---
SS update: Patient receiving dialysis today, pending ECHO.
--- NOTE | 2025-06-11 13:58 | PD.RESPRO ---
Documentation for date of: 06/11/25 Subjective Subjective Interval history: No acute overnight events. Patient seen and examined at bedside. Patient is feeling well today, denies shortness of breath. Denies any history of orthopnea, increasing dyspnea on exertion, paroxysmal nocturnal dyspnea, or leg swelling ever before. Currently denies any chest pain, abdominal pain, urinary symptoms or fever. HD today. Phosphate elevated 9.6, per nephrology increase calcium acetate to 667 mg x 3 TIDWM. LFTs improving, discontinue remdesivir and Decadron as patient is saturating well on room air. Follow-up TTE. Exam Vital Signs Temp Pulse Resp BP Pulse Ox O2 Del Method O2 Flow Rate 98.0 F 83 18 144/97 H 99 Room Air 4 06/11/25 12:00 06/11/25 13:51 06/11/25 13:51 06/11/25 12:00 06/11/25 13:51 06/11/25 12:00 06/10/25 16:00 FiO2 40 06/10/25 12:00 Narrative Exam GENERAL: AOx3, no acute distress HEENT: NC/AT, mucous membranes moist, bilateral sclera anicteric CARDIOVASCULAR: regular rate and rhythm, S1/S2 present, +3/6 blowing systolic murmur heard best at 2nd L intercostal space PULMONARY: clear to auscultation bilaterally, no rales/rhonchi/wheezes ABDOMINAL: soft, non-tender, non-distended, no rebound/guarding, bowel sounds present EXTREMITIES: no peripheral edema SKIN: warm and dry, intact, no rashes NEURO: CN II-XII grossly intact, no focal deficits, alert, following commands Objective Labs 06/11/25 05:48 06/11/25 05:48 Labs: Laboratory Results - last 24 hr 06/11/25 05:48 WBC 12.1 H RBC 3.47 L Hgb 11.0 L Hct 31.3 L MCV 90 MCH 31.7 MCHC 35.1 RDW Std Deviation 46.1 H Plt Count 208 Neut % (Auto) 87 H Lymph % (Auto) 7 L [place] % (Auto) 5 Eos % (Auto) 0 Baso % (Auto) 0 Neut # (Auto) 10.5 H Lymph # (Auto) 0.9 L [place] # (Auto) 0.6 Eos # (Auto) 0.0 Baso # (Auto) 0.0 Immature Gran # (Auto) 0.06 H Absolute Nucleated RBC 0.00 Immature Gran % 1 H Nucleated RBC % 0 Sodium 132 L Potassium 4.0 D Chloride 91 L Carbon Dioxide 20.1 Anion Gap 21 H BUN 81 H Creatinine 10.7 H* D Estim Creat Clear Calc 6.5 L eGFR 5 L* BUN/Creatinine Ratio 8 L Glucose 106 Calculated Osmolality 288 Calcium 8.6 Corrected Calcium 8.9 Phosphorus 9.6 H Magnesium 2.2 Total Bilirubin 0.2 L AST 154 H ALT 242 H Alkaline Phosphatase 196 H D Total Protein 6.3 Albumin 3.6 Globulin 2.7 Albumin/Globulin Ratio 1.3 ABG Interpretation ABG results: 06/09/25 06/09/25 06/09/25 02:18 04:43 16:06 ABG pH 7.11 L* 7.29 L D ABG pCO2 40 31 L ABG pO2 158 H 118 H D ABG HCO3 13 L 15 L ABG O2 Saturation 99 H 99 H ABG Base Excess -16 L -11 L VBG pH 7.46 VBG pCO2 34 L VBG pO2 81 H VBG Base Excess 1 Quality Measures Quality Measures VTE prophylaxis Advance care planning discussed with:: patient Assessment & Plan Assessment Current Active Medications: Generic Name Dose Route Start Last Admin Trade Name Freq PRN Reason Stop Dose Admin Acetaminophen 650 mg 06/09/25 04:51 Acetaminophen Supp 650 Mg Supp NC 07/09/25 04:50 Q6HR PRN Fever > 100.4 or pain Albuterol/Ipratropium 3 ml 06/10/25 13:00 06/11/25 13:51 Albuterol/Ipratropium (Duoneb) Rt Phuong 3 Ml Nebu INH 07/10/25 12:59 3 ml Q6HRRT JEYSON Administration Calcium Acetate 2,001 mg 06/11/25 14:00 Calcium Acetate 667 Mg Tablet PO 07/11/25 13:59 TIDWM JEYSON Heparin Sodium (Porcine) 5,000 unit 06/09/25 09:00 06/11/25 09:55 Heparin Sod Inj 5000 Unit/Ml Vial SC 06/23/25 08:59 5,000 unit Q12HR JEYSON Administration Ceftriaxone Sodium/Dextrose 1 gm in 50 mls @ 100 mls/hr 06/10/25 09:00 06/11/25 09:55 Rocephin/D5w 1gm Iv Premix IV 06/17/25 08:59 100 mls/hr QDAY JEYSON Administration Azithromycin 500 mg/ Sodium 250 mls @ 250 mls/hr 06/09/25 04:58 06/11/25 09:54 Chloride IV 06/16/25 04:57 250 mls/hr QDAY JEYSON Administration Albumin Human 25 gm in 100 mls @ 100 mls/min 06/09/25 09:08 Albuminar-25 Ivpb IV PRN PRN DIALYSIS Non-Formulary Medication 50,000 unit 06/10/25 10:45 Ergocalciferol (Vitamin D2) PO 07/10/25 10:44 DAILY JEYSON Sodium Chloride 3 ml 06/09/25 02:30 Sodium Chloride Rt Phuong 0.9% 3 Ml Nebu INH 07/09/25 02:29 PRN PRN SOLN Plan Dio Burnett is a 69M with PMHx significant for HTN, ESRD (M/W/F) presented to [facility] ED on 06/09 with shortness of breath, admitted for acute hypoxic respiratory failure secondary to fluid overload complicated by COVID infection with possible superimposed bacterial infection. #Acute hypoxic respiratory failure 2/2 #Volume overload due to missed dialysis iso #ESRD (M/W/F) #HAGMA, resolved #Hyperphosphatemia Presents with shortness of breath x 2 days, with symptoms worsening since missing dialysis session on Saturday. Patient missed session due to feeling of general malaise and runny nose with cough with productive sputum. Patient denies fevers, chills. In ED COVID +, CXR shows vascular congestion. BNP >3200, ABG on admission 7.11 pH, PCO2 40, PO2 158. Patient placed on BiPAP. Repeat ABG showed pH 7.29, pCO2 31, pO2 118. Patient follows with Dr. Narvaez. Phosphate elevated 5.2->9.3->9.6 Received HD 06/09, 06/11 Plan: - Continue O2 NC, wean off as tolerated - Dr. Narvaez consulted, appreciate recs: HD today, increase calcium acetate 667 mg TIDWM to 667mg x3 TIDWM #Sepsis 2/2 #COVID positive #Possible superimposed bacterial pneumonia #Lactic acidosis, resolved On admission, patient met SIRS criteria with tachycardia, tachypnea, febrile temp 102.9 ?F and WBC 16.1 with positive COVID infection and end organ damage of elevated troponins. Lactic acid 3.6 on admission downtrended to 1.5. Sepsis likely secondary to COVID infection however community-acquired pneumonia cannot be excluded even though chest x-ray does not indicate PNA. BCx [id number] Received Remdesivir (06/09), however discontinued 2/2 transaminitis. Decadron (06/09) discontinued with improvement in AHRF post dialysis. Plan: - Rocephin 1 g IV daily (06/09- ) and Azithromycin 500 mg IV daily (06/09- ) - Airborne isolation #Transaminitis, improving On admission AST/ALT 28/12. However on the 06/09 increased to 227/94, and further increased to 465/332. Alk phos 112 on admission->146->244. Now downtrending. Initially increased likely secondary to sepsis. Remdesivir started 06/09. CTAP in 03/16/25 showed cirrhosis Liver US showed absent gallbladder, common bile duct 0.7 cm with no stones, fatty liver infiltration with left lobe liver cyst Plan: - Discontinue remdesivir and decadron - CTM LFTs - Recommend outpatient to obtain follow up LFTs 1 week after discharge #NSTEMI likely type II 2/2 volume overload On admission, troponins 0.165->0.94->1.65->1.95->1.77 Likely type II in the setting of sepsis and dramatic drop in blood pressure on admission. Per cardiology troponinemia as expected as patient is an ESRD. EKG shows sinus rhythm rate 70 with left axis deviation. No ST elevation Plan: - Cardiology consulted, recs appreciated: Stat TTE, Keep K>4 and Mg>2 - CTM BP - F/u TTE #HTN #Hypertensive urgency Patient history as stated. Blood pressure on arrival 193/150. Patient denies chest pain, headache, blurry vision. Patient symptoms most likely due to missed dialysis session, complicated by infection. Patient received metoprolol to tartrate in the ED, blood pressure decreased to 117/80. Plan: - Holding patient's home antihypertensive medication in setting of rapid decrease in blood pressure - Monitor blood pressure closely - Plan to restart antihypertensives once condition stabilizes, consider starting metoprolol per cardiology #Mechanical fall 8/20 Patient sustained mechanical fall in the ED on R side as he was trying to get onto the commode. No loss of consciousness or head strike. Femur x-ray shows no acute fracture. Hip x-ray limited study no acute right hip fracture noted. Knee x-ray no fracture or dislocation. Plan: - CTM for increased pain and vitals - PT ordered Hospital management: Lines: PIV, [place] Diet: Renal Bowel: None GI prophylaxis: None DVT prophylaxis: heparin q12 Disposition: tele for management of AHRF and abx CODE STATUS: Full code Plan of care discussed with attending Dr. Adan, and PGY-2 Dr. Stark. Nuha Rao, DO PGY-1 Internal Medicine Attending Provider Attestation/Addendum I attest that I was physically present for the evaluation, physical examination, lab and imaging review of the patient with the residents. I discussed the case with the residents and agree with the findings and plans of care as documented above. Rosalie Adan MD
--- NOTE | 2025-06-11 14:48 | PD.RESDS ---
Planned Discharge Date 06/11/25 DS: Providers Provider Date of admission: 06/09/25 04:51 Primary care physician: Nelson Narvaez MD Admitting Provider: Ezequiel Juarez MD Attending Provider on Admission: Rosalie Adan MD Consults: 06/09/25 01:56 Referral Respiratory Therapy Stat Comment: BiPAP 06/09/25 02:54 Consult to Nephrology Stat Comment: Renal failure Consulting Provider: Nelson Narvaez 06/09/25 17:47 Consult to Cardiology Urgent Comment: ACS Consulting Provider: Hugh Welsh Attending Provider on DC: Rosalie Adan MD Discharging Provider: Rosalie Adan MD DS: Diagnosis Problem List Completed Was Problem List Reviewed/Reconciled?: Yes Hospital Course Hospital Course Hospital course: Summary: Dio Burnett is a 69M with PMHx significant for HTN, ESRD (M/W/F) presented to [facility] ED on 06/09 with shortness of breath, admitted for acute hypoxic respiratory failure secondary to fluid overload from missing Saturday dialysis session complicated by COVID infection with possible superimposed bacterial infection. On admission, patient had hypertensive urgency, was febrile tachycardic, tachypneic and requiring BiPAP for oxygenation with elevated lactic acid, troponins and transaminitis, also testing positive for COVID. Patient underwent emergent dialysis with resolution of acute hypoxic respiratory failure. Remdesivir and Decadron for COVID were started however patient's transaminitis increased, and later improved with discontinuation of remdesivir and Decadron. During patient hospital stay however patient's blood pressure was on the lower end of normal and was not given any BP meds. Of note, on admission patient suffered mechanical fall in the ED on his right side however x-rays, as below, showed no acute fractures, and patient does not complain of any ongoing musculoskeletal pain. Regarding elevated troponins, cardiology was consulted and recommended echocardiogram and further workup however patient decided to leave AMA. Patient has normal mental status and adequate capacity to make medical decisions. The risks have been explained to the patient, including progression of possible heart attack, worsening illness, or permanent disability and . The benefits of admission have also been explained, including the availability and proximity of nurses, physicians, monitoring, diagnostic testing, treatment and cardiology evaluation. The patient was able to understand and state the risks and benefits of hospital admission and had the opportunity to ask questions about their medical condition. The patient was treated to the extent that patient would allow and knows that they may return for care at any time. Patient was encouraged to continue home medications.? Patient was also encouraged to see PCP and machine sole leveler for follow-up if patient does not return to the ED. Imaging: CXR shows vascular congestion Liver US showed absent gallbladder, common bile duct 0.7 cm with no stones, fatty liver infiltration with left lobe liver cyst Femur x-ray shows no acute fracture. Hip x-ray limited study no acute right hip fracture noted. Knee x-ray no fracture or dislocation. Discharge Recommendations: - Please take all medications as prescribed - Please take the antibiotic Augmentin 3 additional days - Continue home medications as prescribed - Restart valsartan 80 mg daily, hold clonidine 0.1 mg twice daily and hydralazine 50 mg 3 times daily until you see your primary care physician as your blood pressures in hospital were on the lower end of normal - Please follow up with cardiology outpatient within one week and please get outpatient echocardiogram - Please follow-up with your jewel stringer Dr. Narvaez within 1 week of discharge - Please follow up with your PCP within one week of discharge - If your symptoms worsen, please seek immediate medical attention and return to your nearest emergency room. - If you do not have a PCP, you may follow up at the [facility] at [address] [place] [address] [address] [address], Hospital Diagnoses: #Acute hypoxic respiratory failure 2/2 #Volume overload due to missed dialysis iso #ESRD (M/W/F) #HAGMA, resolved #Hyperphosphatemia #Sepsis 2/2 #COVID positive #Possible superimposed bacterial pneumonia #Lactic acidosis, resolved #Transaminitis, improving #NSTEMI likely type II 2/2 volume overload #HTN #Hypertensive urgency #Mechanical fall 06/09/25 Nuha Rao, Internal Medicine, PGY-1 Status at Discharge Cognitive/behavioral status at discharge: Stable Functional status at discharge: independent ambulation Overall status at discharge: patient is back to baseline Time Spent with Patient Time attestation: Total time spent providing and/or coordinating discharge services: Time spent: Less than 30 minutes Exam Vital Signs Temp Pulse Resp BP Pulse Ox O2 Del Method O2 Flow Rate 98.0 F 83 16 144/97 H 100 Room Air 4 06/11/25 12:00 06/11/25 13:51 06/11/25 13:51 06/11/25 12:00 06/11/25 13:51 06/11/25 12:00 06/10/25 16:00 FiO2 40 06/10/25 12:00 Narrative Exam GENERAL: AOx3, no acute distress HEENT: NC/AT, mucous membranes moist, bilateral sclera anicteric CARDIOVASCULAR: regular rate and rhythm, S1/S2 present, +3/6 blowing systolic murmur heard best at 2nd L intercostal space PULMONARY: clear to auscultation bilaterally, no rales/rhonchi/wheezes ABDOMINAL: soft, non-tender, non-distended, no rebound/guarding, bowel sounds present EXTREMITIES: no peripheral edema SKIN: warm and dry, intact, no rashes NEURO: CN II-XII grossly intact, no focal deficits, alert, following commands Discharge Plan Plan Patient Disposition: Left Against Medical Advice Patient condition on transfer: Stable Care Plan Goals: - Please take all medications as prescribed - Continue home medications as prescribed - Restart valsartan 80 mg daily, hold clonidine 0.1 mg twice daily and hydralazine 50 mg 3 times daily until you see your primary care physician as your blood pressures in hospital were on the lower end of normal - Please follow up with cardiology outpatient within one week and please get outpatient echocardiogram - Please follow-up with your jewel stringer Dr. Narvaez within 1 week of discharge - Please follow up with your PCP within one week of discharge - If your symptoms worsen, please seek immediate medical attention and return to your nearest emergency room. - If you do not have a PCP, you may follow up at the [facility] at [address] [place] [address] [address] [address], Prescriptions/Referrals Prescriptions/Med Rec: New calcium acetate(phosphat bind) 667 mg Capsule 2,001 mg PO TIDWM 30 Days Qty: 270 0RF amoxicillin 875 mg tablet 875 mg PO Q12H 3 Days Qty: 6 0RF Continued sodium bicarbonate 650 mg tablet 650 mg PO BID calcitriol 0.25 mcg capsule 0.25 mcg PO TID ergocalciferol (vitamin D2) 1,250 mcg (50,000 unit) capsule 50,000 unit PO DAILY valsartan 80 mg Tablet 80 mg PO QDAY cinacalcet 30 mg tablet 30 mg PO TID Patient Comments: TAKE 1 TABLET BY MOUTH EVERY DAY Held hydralazine 50 mg Tablet 50 mg PO TID Hold Instructions: Resume on 06/25/25. Please discuss with your PCP or Attending Pathologist before resuming clonidine HCl 0.1 mg Tablet 0.1 mg PO BID Hold Instructions: Resume on 06/25/25. Please discuss with your PCP/Attending Pathologist before resuming Discontinued calcium acetate(phosphat bind) 667 mg capsule 667 mg PO TID Patient Comments: TAKE 2 CAPSULE BY MOUTH 3 TIMES A DAY WITH MEALS Referrals: Nelson Narvaez MD [Primary Care Provider] - Patient/Caregiver Discharge Instructions Print Language: Venezuelan Stand Alone Forms: [employer] Call Info. Quality Discharge Quality Measures VTE prophylaxis MD Attestestation MD Attestation I attest that I was physically present for the evaluation, physical examination, lab and imaging review of the patient with the residents. I discussed the case with the residents and agree with the findings and plans of care as documented above. At bedside today, patient states he is feeling well and denies any new complaints. Saturating well on room air. Denies shortness of breath, chest pain. Vital signs are stable. Lab results are also stable. Patient is scheduled for hemodialysis this evening. Discussed with cardiology, recommended echocardiography to evaluate for motion abnormality and heart function in setting of NSTEMI. Discussed with the patient that she will need echocardiography before we can safely discharge him. Patient wished to leave AMA since he has his son's wedding tomorrow, verbalized understanding of the situation and need for echocardiography, still wants to leave knowing the risk of not completing the workup. Signed AMA. Advised patient that we will still send his prescription and recommended to follow-up with cardiology. Rosalie Adan MD
[2025-06-11] MEDS: CALCIUM ACETATE 667 MG TABLET 2001 MG PO ×2 (15:25→17:29)
--- NOTE | 2025-06-11 16:15 | PC.SS ---
rounding note: ready to d/c
== END 2025-06-11 21:49 | disposition left against medical advice (07) | DRG 640 ==
LOC: SERX 03:41 → SERHOLD 05:34 → S2NX 15:06
PROVIDERS: Student in an Organized Health Care Education/Training Program; Admitting Provider Student in an Organized Health Care Education/Training Program; Emergency Provider Emergency Medicine; PCP Internal Medicine; Visit Provider Student in an Organized Health Care Education/Training Program
DX: E87.70 Fluid overload, unspecified (principal); J12.82 Pneumonia due to coronavirus disease 2019; J96.01 Acute respiratory failure with hypoxia; N18.6 End stage renal disease; U07.1 COVID-19; J15.69 Pneumonia due to other Gram-negative bacteria; I12.0 Hypertensive chronic kidney disease with stage 5 chronic kidney disease or end stage renal disease; N17.9 Acute kidney failure, unspecified; Z91.158 Patient's noncompliance with renal dialysis for other reason; Z99.2 Dependence on renal dialysis; W19.XXXA Unspecified fall, initial encounter; F12.90 Cannabis use, unspecified, uncomplicated; I16.0 Hypertensive urgency; E78.5 Hyperlipidemia, unspecified; E83.39 Other disorders of phosphorus metabolism; E87.5 Hyperkalemia; K57.30 Diverticulosis of large intestine without perforation or abscess without bleeding; K74.60 Unspecified cirrhosis of liver; N28.89 Other specified disorders of kidney and ureter; W18.30XA Fall on same level, unspecified, initial encounter; I71.40 Abdominal aortic aneurysm, without rupture, unspecified; E87.20 Acidosis, unspecified; Y92.238 Other place in hospital as the place of occurrence of the external cause; Z53.29 Procedure and treatment not carried out because of patient's decision for other reasons; Z78.9 Other specified health status; Z87.891 Personal history of nicotine dependence; Z90.49 Acquired absence of other specified parts of digestive tract
CPT/HCPCS: 36415; 36600; 71045; 73501; 73552; 73562; 76705; 80053; 81001; 82248; 82803; 83605; 83735; 83880; 84100; 84145; 84443; 84484; 85025; 85379; 85652; 86140; 87040; 87400; 87811; 93005; 94640; 94660; 96365; 96366; 96375; 99284; A9270; J0131; J0248; J0456; J0692; J0696; J1100; J1611; J1644; J1885; J1938; J2270; J2919; J3373; J3490; J7050; J7999